=== PATIENT | female | born 1960 | race Caucasian/White ===

== ENCOUNTER → 2022-03-07 12:25 | Outpatient (CLI) | payer OTHER, SELFPAY ==
[2022-03-07 13:51] LABS: Add Manual Diff / Slide Review NO; Basophils Absolute Auto 0 /uL (0-100); Basophils Percent Auto 0.7 % (0-2); Eosinophils Absolute Auto 100 /uL (0-450); Eosinophils Percent Auto 1.3 % (2-4); Hematocrit 39.4 % (36-46); Hemoglobin 13.2 g/dL (12.0-16.0); Lymphocytes Absolute Auto 1400 /uL (1100-4500); Lymphocytes Percent Auto 23.9 % (25-40); Mean Corpuscular HGB Conc 33.5 % (30-36); Mean Corpuscular Volume 80.5 fL (80-100); Monocytes Absolute Auto 400 /uL (0-900); Monocytes Percent Auto 7.4 % (3-14); Neutrophils Absolute Auto 4000 /uL (1500-7000); Neutrophils Percent Auto 66.7 % (50-75); Platelet Count 259 X10^3/uL (150-400); Red Blood Cell Count 4.89 X10^6/uL (4.0-5.2); Red Cell Distribution Width 15.4 % (11.6-14.8)
[2022-03-07 14:06] LABS: Hemoglobin A1C% w Est Avg Glu 5.4 % (4.0-6.0)
[2022-03-07 14:20] LABS: BUN Creatinine Ratio 16.7 (6-22); Blood Urea Nitrogen 15 mg/dL (7-17); Calcium 8.6 mg/dL (8.4-10.2); Carbon Dioxide 27 mmol/L (22-32); Chloride 100 mmol/L (98-107); Estimated Glomerular Filt Rate > 60 mL/min (>60); Glucose 89 mg/dL (80-110); HEMOLYSIS < 15 (0-50); Sodium 138 mmol/L (137-145)
== END ==
PROVIDERS: Family Provider Family Medicine; PCP Internal Medicine; Referring Provider Orthopaedic Surgery Foot and Ankle Surgery; Visit Provider Orthopaedic Surgery Foot and Ankle Surgery
DX: R73.9 Hyperglycemia, unspecified (principal); Z01.812 Encounter for preprocedural laboratory examination
CPT/HCPCS: 36415; 80048; 83036; 85025

== ENCOUNTER → 2022-03-14 12:14 | Outpatient (CLI) | payer OTHER, SELFPAY ==
[2022-03-14 13:14] LABS: COVID19 -Nasal RAPID Negative (Negative)
== END ==
PROVIDERS: Family Provider Family Medicine; PCP Internal Medicine; Referring Provider Orthopaedic Surgery Foot and Ankle Surgery; Visit Provider Orthopaedic Surgery Foot and Ankle Surgery
DX: Z20.822 Contact with and (suspected) exposure to COVID-19 (principal)
CPT/HCPCS: 87635; C9803

== ENCOUNTER → 2022-05-17 15:33 | Outpatient (CLI) | payer OTHER, SELFPAY ==
[2022-05-17 16:51] LABS: COVID19 -Nasal RAPID Negative (Negative)
== END ==
PROVIDERS: Family Provider Family Medicine; PCP Internal Medicine; Referring Provider Orthopaedic Surgery Foot and Ankle Surgery; Visit Provider Orthopaedic Surgery Foot and Ankle Surgery
DX: Z20.822 Contact with and (suspected) exposure to COVID-19 (principal)
CPT/HCPCS: 87635; C9803

== ENCOUNTER 2022-05-19 06:27 | Day surgery (SDC) | payer OTHER, SELFPAY ==
[2022-05-17 15:24] VITALS: BMI 39.8
[2022-05-19] VITALS (14 sets, daily range): BP systolic 134–173; BP diastolic 54–79; PULSE 64–97; RESP 13–20; TEMP 36–36.8; O2SAT 94–998; BMI 39.8; BMI 39.5
--- NOTE | 2022-05-19 06:00 | DI.RAD.S_ITS ---
PROCEDURE: XR KNEE RT 1TO2V INDICATIONS: postop total joint TECHNIQUE: 2 view(s) of the knee acquired. COMPARISON: [facility], CR, XR KNEE 3 VIEWS RIGHT, 11/10/2021, 10:06. FINDINGS: Bones: Patient is status post knee joint arthroplasty. Hardware components are in expected positions. Visualized bony structures are intact. Soft tissues: Overlying postoperative changes are noted. IMPRESSION: Expected immediate postoperative appearance of right TKA. Dictated by: Braxton HERNANDEZ Interpreted: Federica Tillman MD on 05/19/2022 at 16:03 Transcribed by: BEATRIS on 05/19/2022 at 16:03 Approved by: Federica Tillman M.D. on 05/19/2022 at 16:35
[2022-05-19] MEDS: LACTATED RINGERS 1,000 ML 100 ML IV ×3 (07:06→13:46)
[2022-05-19] MEDS: ACETAMINOPHEN 325 MG TABLET 975 MG PO (07:09)
--- NOTE | 2022-05-19 07:27 | PM.PREOP ---
Pre-operative Note COVID-19 COVID-19 status: Negative Interval Note History & Physical reviewed/Exam performed by Physician: Yes Changes to H&P: No
[2022-05-19] MEDS: CEFAZOLIN 2 GM/100 ML PREMIX 100 ML IV ×3 (08:00→23:28)
--- NOTE | 2022-05-19 08:24 | SUR.OPER ---
Supine on padded OR bed. Pillow under head, arms secured on padded armboards <90 degree abduction. Safety belt across torso. Non-operative leg secured with tape over blanket over lower leg. Operative leg secured in DeMayo/Spencer/Nathe positioner. Foam padded brace at thigh of operative leg.
[2022-05-19] MEDS: BUPIVACAINE LIPOSOME 266 MG/20 ML VIAL INJ (08:30)
[2022-05-19] MEDS: TRANEXAMIC ACID 1,000 MG VIAL 1000 MG INJ ×2 (08:30→10:38)
[2022-05-19] MEDS: BUPIVACAINE 0.25% (PF) 60 ML, EPINEPHrine 0.3 MG INJ (08:30)
[2022-05-19] MEDS: ONDANSETRON 4 MG/2 ML INJ IV ×4 (11:56→23:00)
[2022-05-19] MEDS: hydrOXYzine pamoate 25 MG CAPSULE PO (13:43)
[2022-05-19] MEDS: OXYCODONE IR 10 MG TABLET PO (13:43)
--- NOTE | 2022-05-19 15:15 | PT.IIE ---
Current Diagnoses Unilateral primary osteoarthritis, right knee (05/19/22) Surgery Performed Operation Date: 05/19/22 07:45 Actual Procedures p Total Knee Arthroplasty(Right) - Sabine Jurado MD Surgical History (Last Updated 03/10/22 @ 10:23 by Linda Salcedo, RN) History of biopsy of temporal artery History of section History of hysterectomy History of right oophorectomy Hx of arthroscopy of right knee Hx of hand surgery Hx of knee surgery Hx of thyroidectomy (11/14/14) Hx of tonsillectomy S/P appendectomy Medical History (Last Updated 05/17/22 @ 15:26 by Linda Salcedo, RN) Allergies Anesthesia complication Anxiety Cervical spinal stenosis Cleft palate COVID-19 virus infection (03/30/22) Depression Fibromyalgia GERD (gastroesophageal reflux disease) Hearing impaired HTN (hypertension) Hx of multiple concussions Hypothyroid JOHNNIE on CPAP Osteoarthritis Spinal stenosis Vocal cord dysfunction Physical Therapy Inpatient Evaluation/Re-Eval M1 PT/OT-IP Prior Functional Status Start: 05/19/22 15:53 Freq: NEEDED Status: Active Protocol: Document 05/19/22 15:15 AB (Rec: 05/19/22 16:08 AB [email or web address]) Medical Review Prior Functional Status Medical History Reviewed Yes Communication able to make needs known Mobility and Gait pt stated that she is independent with all mobilities and ambulation without AD Prior Functional Level (Other details) pt has chronic back issues Social History Household Members spouse Living Arrangements House Number of Floors (Floors) One Floor Number of Stairs To Enter/Railing? 2 steps without rails to enter Home Environment Standard Height Toilet,Walk in Shower Home Equipment Front Wheel Walker,Straight Cane,Shower Seat without Backrest,Hand Held Shower Additional Social History Comment pt has an adjustable bed M2 PT-IP Current Condition Start: 05/19/22 15:53 Freq: NEEDED Status: Active Protocol: Document 05/19/22 15:15 AB (Rec: 05/19/22 16:08 AB [email or web address]) Physical Therapy Current Condition Current Condition Evaluation Date 05/19/22 Treatment Diagnosis s/p R TKA; difficulty in walking Onset Date 05/19/22 M3 PT-IP Subjective Start: 05/19/22 15:53 Freq: NEEDED Status: Active Protocol: Document 05/19/22 15:15 AB (Rec: 05/19/22 16:08 [email or web address]) Subjective Physical Therapy Visit Type Type Initial Evaluation Visit Start Time 15:15 Visit Stop Time 15:46 Total Visit Minutes 31 Number of DIGITAL INTERN Visits 0 Physical Therapy Visit Comments Patient Comments agreeable to do PT Therapy Pain Assessment Pain When Pain Assessed At Rest Pain Present Pain Present Pain Reported Location right knee Intensity 8 Scale Used Numeric (0 - 10) Pain Behaviors Guarding,Restlessness Pain Management Techniques Apply Cold,Distraction, Elevation,Modification of Treatment,Re-positioning, Timing of Activity with Medications M4 PT-IP Mobility and Gait Start: 05/19/22 15:53 Freq: NEEDED Status: Active Protocol: Document 05/19/22 15:15 AB (Rec: 05/19/22 16:08 [email or web address]) PT-Bed Mobility Assessment Supine to Sit Supine to Sit Standby Assistance Sit to Supine Sit to Supine Standby Assistance PT-Transfer Assessment Sit to and From Stand Sit to and from Stand Minimal Assistance,1 Person Assistance,Use of Upper Extremities Equipment Transfer Assistive Device Gait Belt,Front Wheeled Walker Orthotic/Prosthetic Devices or Brace: No Comments Mobility Comments BP in supine: 152/68 completed supine to sit SBA. able to sit on EOB CGA. pt becoming sleepy and cued to keep eyes open. stated that she is just tired. BP checked : 155/72. completed sit to stand min A and able to take side steps towards HOB using FWW min A. completed sit to supine SBA. positioned pt in bed. call light and table placed within reach. caregiver training set up at 9 am tomorrow. Gait Assessment Comments Gait Comments able to take side steps towards HOB using fWW PT-Balance Assessment Sitting Balance and Reactions Static Sitting Balance Ability Good Dynamic Sitting Balance Ability Fair Standing Balance and Reactions Static Standing Balance Ability Fair Dynamic Standing Balance Ability Fair Device Used FWW M5 PT-IP Objective Assessments Start: 05/19/22 15:53 Freq: NEEDED Status: Active Protocol: Document 05/19/22 15:15 AB (Rec: 05/19/22 16:08 [email or web address]) Orientation Orientation/Cognition Level of Alertness Alert Orientation Name,Place,Situation Language Function Ability No Deficits Noted Safety Awareness Decreased Safety Awareness Memory Description No Deficits Noted Gross Range of Motion Lower Extremity ROM Assessment Right Impaired Impairments R knee flexion ~ 50 deg with pain limiting movement Strength Lower Extremity Strength Assessment Right Impaired Hip 4-/5 Knee 3+/5 Sensation Assessment Sensation Gross Sensation WNL Muscle Tone Muscle Tone WNL Yes M6 PT-IP Treatment Start: 05/19/22 15:53 Freq: NEEDED Status: Active Protocol: Document 05/19/22 15:15 AB (Rec: 05/19/22 16:08 AB [id number]) Physical Therapy Treatment Education Education Provided Precautions,Weight Bearing Status,Post-Op Packet,Safety M7 PT-IP Assessment and Plan Start: 05/19/22 15:53 Freq: NEEDED Status: Active Protocol: Document 05/19/22 15:15 AB (Rec: 05/19/22 16:08 AB [email or web address]) PT Summary Assessment and Plan Potential Rehabilitation Potential Fair Status of Condition at Evaluation Evolving Summary Impairments Pain,ROM,Strength,Balance, Coordination,Sensation,Tone, Cognition,Bed Mobility, Transfers,Gait,Activity Tolerance Assessment Summary pt requiring min A with mobility using FWW. caregiver training set up at 9am tomorrow and will continue to assess progress. pt plans to go home and spouse to assist and has outpt PT set up. Goals Bed Mobility Goal Independent Transfer Goal Independent,Front Wheeled Walker Gait Goal Independent,Front Wheel Walker Gait Distance 200 Other Goals up/down 2 steps COMMERCIAL DIVER/SPC CGA Days to Meet Goals 5 Frequency of Treatment Frequency Of Treatment Twice a Day Treatment Plan Physical Therapy Treatment Plan Bed Mobility Training,Transfer Training,Gait Training, Therapeutic Exercise,Balance Retraining,Post Op Education, Discharge Planning,Hot or Cold Pack,Neuromuscular Re-ed, Coordination Retraining,Manual Therapy Weight Bearing Status Weight Bearing Status Weight Bear as Tolerated Allowed Weight Bearing Amount (enter % RLE WBAT or #) (%) Recommendations To Nursing Amount of Assist Needed 1 Person Assist Discharge Recommendations PT Discharge Recommendations Home with Assistance, Outpatient PT Transportation Needs at Discharge Private Vehicle
--- NOTE | 2022-05-19 15:41 | P.OP_ITS ---
Operative Date/Time/Diagnoses Date of procedure: 05/19/22 Time of procedure: 08:00 Pre-op diagnosis: Right knee arthritis M17.11 Obesity BMI 39 Post-op diagnosis: same Procedure & Clinicians Procedure: Total knee arthroplasty, right CPT code 32383 Same procedure as scheduled: Yes Indications: Patient is a 61-year-old female with end-stage arthritis. It is associated with pain and morning stiffness. She has failed all conservative treatments. She has been indicated for right total knee arthroplasty. The risks and benefits of the procedure have been discussed with the patient and given the opportunity to ask questions. The risks of surgery include but are not limited to infection, persistence of pain, damage to nerves and blood vessels, hardware complications, DVT, PE, coardiopulmonary complications and . The patient expressed a thorough understanding of the risks and benefits of surgery and has elected to proceed. Consent was signed. During the operation, the services of a physician surgical brace maker were medically indicated and necessary to provide the exposure of the operative site for the surgical procedure and to maintain the limb in a proper position to carry out the operation safely and efficiently. Without a qualified assistant signal maintainer being present this would extended the operative procedure and made the procedure technically more difficult to perform. Surgeon: Sabine Jurado Manufacturers Representative: Juliette Jiménez Anesthesia Type: General Operative Notes Findings: End-stage knee arthritis Closure Type: primary Prosthetic devices, grafts, tissues, transplants, or devices: [place] [employer] Journey the CS femur size 4 right Oxinium Tibia tray right size 2 journey nonporous Poly right size 1-2---11mm Patella 32 mm x 7.5mm round Estimated Blood Loss (mL): 100 Tourniquet time (min): 132 Procedure in detail: Patient was seen in the preoperative area where the patient and site of surgery were identified in the operative knee was marked informed consent confirmed. This was the right knee. Patient received the appropriate preoperative antibiotics this was 2 g of Ancef. And other preoperative medications and was taken to the operating room placed on operating table in the supine position. S beny anesthetic were administered. The operative extremity was then prepped and draped in the standard sterile fashion with a nonsterile tourniquet high on the thigh. Patient was placed on the green foam bolsters. A lateral post was placed at the level of the proximal thigh /trochanter area as a lateral post. Formal time-out procedure was performed confirming the patient's side and site of surgery and administration of appropriate preoperative antibiotics and implants were in the room accounted for. All were in agreement. Patient received a preoperative dose of tranexamic acid and then a 2nd dose at tourniquet release Patient was prepped and draped in the standard sterile fashion and the foot was placed into the [facility] leg silver. This was taken into high flexion and the incision was marked out over the anterior knee to the level of the medial tubercle tubercle. She had an old very medial incision from above surgery 40 years ago. The Esmarch was then used for exsanguination and the tourniquet was inflated to 250 mmHg. Was made through the skin and subcutaneous tissue in high flexion this was then brought down into 30? of flexion for the medial parapatellar arthrotomy. A marker pen was used to minna the arthrotomy site for later repair. Joint fluid was evacuated. The anterior osteophytes and soft tissues were removed. Routine medial release was initially made along the medial proximal tibia with Bovie. The patella was on quite a bit of tension on attempted eversion so the quad incision was lengthened to relax it and then the patella was 1st cut using the s aw sized and prepped and then subluxed throughout the case and protected. The leg was then taken into extension and the patella was everted and the patella was cut to accommodate the patellar button. This was sized to a 32 mm button for a 7.5 mm thickness to recreate the original dimensions of the patella. Poly was removed and the protector replaced and the patella was subluxed and the knee was taken back up into flexion and attention was returned to the femur. Then the rotational landmarks of Whitesides line and the trans epicondylar axis were marked on the femur with electrocautery. Then the intramedullary guide for the femur was created. The distal femoral cut was made in 6? of valgus using the intramedullary guide with the cut setting on 2+ as the patient did have a few degree preoperative flexion contracture. The ACL and PCL released. The proximal tibia was then cut using the intramedullary guide, taking 7 mm off the less involved side this was the medial plateau. The Perry wing was used to check the slope through the guide. Second pass was made through the tibial cut guide with the saw after the cut tibia was removed plane down about 1 more mm and further smooth then the resection surface. This was still quite tight in extension so the block was dropped 2 more mm taken off the tibia. In extension remainders of the medial and lateral menisci were removed. The extension flexion gaps were then checked using both the flexion extension blocks. And was selected for a 11 mm poly. femur was then sized and the rotation set. This measured a size 4. Cut block was then placed and the anterior, posterior and chamfer cuts were then made. The posterior osteophytes and soft tissues were then removed. Then in extension the posterior capsule was injected with a mixture of 40 mL of 0.25% Marcaine and 20 mL of Exparel care to avoid excessive injection posterior laterally. The remainder of this was saved for the capsule and subcutaneous tissue and placed during cement curing. Attention was then returned to the tibia and this was prepared with the rotation set by the extramedullary guide. Lined up with the tibial crest and the 2nd toe. The tibial trial was then pinned in place and the trial femoral components were placed tibia was selected for size 2. Then the intercondylar notch was cut through the femoral trial to create the box this was done with the distal than the proximal drill and then the box cut distally and then proximally. Next the insert was placed and the trial poly placed. This was stable in flexion and extension and there was a 0-120 degree range of motion. Further flexion limited by body habitus. The tibia was then finished with the drill and flange cuts and then this was removed. All trials were removed. The wound and bone was irrigated with pulsatile lavage. This was then dried with a sponge. The components were verified and opened and the cement was mixed. Cement was applied to the components and then to the bone then the tibia was cemented in place 1st followed by the femur then the patella. Excess cement was removed. With care looking around the back of the knee. Remainder of the injection was injected around the capsule. trial poly was placed back in the leg was placed into extension for the patellar cementing. After this was cured approximately 15 minutes later and the dilute Betadine solution was placed for at least 3 minutes in the wound this was then irrigated out and the final poly was placed. This was a 11 mm poly. This was stable in extension and high flexion and mid flexion. The tourniquet was released hemostasis was achieved. Final g of tranexamic acid was given IV at the time of tourniquet release. The capsule was closed with 1. Ethibond suture. Subcutaneous layer was closed with 3-0 Vicryl suture. Skin was closed with a running V lock suture Stratafix Monocryl type suture and Dermabond. An Aquacel was placed. An Crescencio wrap was applied. Anesthetic was terminated the patient was woken from anesthesia and taken to recovery room in good condition. There no immediate complications from this procedure. The patient will be maintained on a standard total knee replace ment protocol with weight-bearing as tolerated. Complications: none Post-operative Condition: stable Disposition: PACU Plan for aftercare: Weightbear as tolerated. Discharge when safe. Aspirin 81 mg b.i.d. for DVT prophylaxis x6 weeks. Follow-up in 2 weeks orthopedic Clinic for wound evaluation. Follow-up in 6 weeks for repeat x-rays
--- NOTE | 2022-05-19 17:36 | PC.NURSE ---
Pt arrived to Room 209 at 1255. She is A&Ox3, c/o pain to RLE 8-9/10 but lethargic and reports tingling to R foot. SBP slightly elevated. Pt is given prn zofran for c/o nausea. Crescencio wrap c/d/i. ice packs applied. She is assisted to edge of the bed to stand to use bsc, but light headed assisted to lie back down. SBP 160's. PT is able to work with patient and stand once more this evening. She lies back down and requests to rest. She declines scheduled evening meds due to nausea. Continuous pulse ox. Continuous monitoring. RT notified of CPAP machine. call light in reach, scds on, IVF at 100 ml/hr, and bed alarm on.
[2022-05-19] MEDS: MORPHINE ER 15 MG TABLET PO (23:28)
[2022-05-20 00:15] VITALS: BP 177/67; PULSE 65; RESP 14; TEMP 36.6; O2SAT 96
[2022-05-20] MEDS: HYDROMORPHONE 0.5 MG INJ 0.2 MG IV (02:25)
[2022-05-20 05:30] VITALS: BP 155/54; PULSE 76; RESP 14; TEMP 37.4; O2SAT 98
[2022-05-20] MEDS: ONDANSETRON 4 MG/2 ML INJ IV (05:37)
[2022-05-20] MEDS: ACETAMINOPHEN 325 MG TABLET 650 MG PO (06:35)
[2022-05-20] MEDS: MORPHINE ER 15 MG TABLET PO (06:36)
[2022-05-20] MEDS: LACTATED RINGERS 1,000 ML 100 ML IV (06:37)
[2022-05-20 06:45] LABS: Hematocrit 35.4 % (36-46); Hemoglobin 11.5 g/dL (12.0-16.0)
[2022-05-20] MEDS: DOCUSATE 100 MG CAPSULE PO (08:51)
[2022-05-20] MEDS: ASPIRIN EC 81 MG TABLET PO (08:51)
--- NOTE | 2022-05-20 09:00 | PT.IPTN ---
Current Diagnoses Unilateral primary osteoarthritis, right knee (05/19/22) Surgery Performed Operation Date: 05/19/22 07:45 Actual Procedures p Total Knee Arthroplasty(Right) - Sabine Jruado MD Physical Therapy Treatment Note M2 PT-IP Current Condition Start: 05/19/22 15:53 Freq: NEEDED Status: Active Protocol: Document 05/19/22 15:15 AB (Rec: 05/19/22 16:08 AB [email or web address]) Physical Therapy Current Condition Current Condition Evaluation Date 05/19/22 Treatment Diagnosis s/p R TKA; difficulty in walking Onset Date 05/19/22 M3 PT-IP Subjective Start: 05/19/22 15:53 Freq: NEEDED Status: Active Protocol: Document 05/20/22 09:00 AB (Rec: 05/20/22 12:29 AB [email or web address]) Subjective Physical Therapy Visit Type Type Treatment Note Visit Start Time 09:00 Visit Stop Time 11:30 Total Visit Minutes 71 Notes pt seen for split visits: 900 am to 951 am and 1110 to 1130 am Number of CITIZENSHIP TEACHER Visits 0 Physical Therapy Visit Comments Patient Comments agreeable to do PT Therapy Pain Assessment Pain When Pain Assessed At Rest Pain Present Pain Present Pain Reported Location right knee Intensity 7 Scale Used Numeric (0 - 10) Pain Behaviors Facial Grimacing,Guarding, Restlessness Pain Management Techniques Apply Cold,Distraction, Modification of Treatment,Re- positioning,Timing of Activity with Medications M4 PT-IP Mobility and Gait Start: 05/19/22 15:53 Freq: NEEDED Status: Active Protocol: Document 05/20/22 09:00 AB (Rec: 05/20/22 12:29 AB [email or web address]) PT-Bed Mobility Assessment Supine to Sit Supine to Sit Moderate Assistance,1 Person Assistance,Head of Bed Elevated Sit to Supine Sit to Supine Standby Assistance PT-Transfer Assessment Sit to and From Stand Sit to and from Stand Contact Guard Assistance, Minimal Assistance,1 Person Assistance,Use of Upper Extremities Equipment Transfer Assistive Device Gait Belt,Front Wheeled Walker Orthotic/Prosthetic Devices or Brace: No Transfers Transfer Destination Chair Transfer Ability Level of Assist Contact Guard Assistance,1 Person Assistance,Use of Upper Extremities Comments Mobility Comments spouse in room with pt. caregiver training conducted completed supine to sit mod A with spouse assisting. able to sit on EOB SBA. completed sit to stand CGA to and ambulated in room ~ 10 ft CGA using FWW . educated spouse on how to use safety belt and how to assist pt. spouse was able to put safety belt on pt and assisted pt with sit to stand. spouse was able assist pt with ambulation using fWW. educated pt and spouse on how to do stairs using SPC + CHILLER HAND. pt has 2 steps without rails to enter the house. pt ambulated towards the platform step using FWW CGA. attempted up/down platform step but unable to complete despite PT and spouse assisting. pt ambulated back to the chair using FWW CGA. educated pt on stair again. completed up/down step with PT assisting max A and cues. pt requested to go back to bed. supine to sit SBA. positioned pt in bed. call light and table placed within reach. pt stated that she just needs to rest for now. checked back on pt after ~ 1 hour. pt sitting up on EOB and spouse in room. pt wanting to use the toilet. caregiver training conducted again. spouse able to put safety belt on pt and assisted pt to the toilet using FWW. pt ambulated towards the platform step using fWW CGA. completed up/down step using SPC+CHILLER HAND and completed x 2 sets wtih spouse assisting. pt ambulated back to room and to the chair. spouse stating now that they have another step to get into the house and not just 2 steps. stated that they have 2 steps to get to the porch and then walk towards the front door and another step to enter. educated pt and spouse on how to go up/ down 1 step using FWW. pt completed up/down platform step using FWW with spouse assisting min A. pt sat back on the chair. positioned on the chair. call light and table placed within reach. Gait Assessment Gait Gait Assistance Required: Contact Guard Assist Distance (Feet) 30 Able to Maintain Weight Bearing Status Yes During Gait Assistive Devices Assistive Device Gait Belt,Front Wheeled Walker Orthotic/Prosthetic Devices or Brace: No Gait Deviations General Gait Pattern Antalgic,Decreased Stride Length,Decreased Feet Clearance Factors Limiting Gait Function Factors Limiting Gait Function Decreased Activity Tolerance, Decreased Sensation,Decreased Strength,Difficulty Following Directions,Limited Range of Motion,Pain,Poor Balance,Poor Safety Awareness Stair Climbing Assessment Evaluation Level of Assist On Stairs Minimal Assistance,Moderate Assistance,Maximal Assistance, 1 Person Assistance Devices Stair Climbing Assistive Devices Straight Cane,Front Wheel Walker Technique/Endurance Stair Climbing Direction Ascend and Descend Stair Climbing Technique Step to Step Number of Steps Climbed 1 Stair Climbing Set # Repetitions (reps) 4 Comments Stair Climbing Comments pls refer to mobility section for details M5 PT-IP Objective Assessments Start: 05/19/22 15:53 Freq: NEEDED Status: Active Protocol: Document 05/19/22 15:15 AB (Rec: 05/19/22 16:08 AB [email or web address]) Orientation Orientation/Cognition Level of Alertness Alert Orientation Name,Place,Situation Language Function Ability No Deficits Noted Safety Awareness Decreased Safety Awareness Memory Description No Deficits Noted Gross Range of Motion Lower Extremity ROM Assessment Right Impaired Impairments R knee flexion ~ 50 deg with pain limiting movement Strength Lower Extremity Strength Assessment Right Impaired Hip 4-/5 Knee 3+/5 Sensation Assessment Sensation Gross Sensation WNL Muscle Tone Muscle Tone WNL Yes M6 PT-IP Treatment Start: 05/19/22 15:53 Freq: NEEDED Status: Active Protocol: Document 05/20/22 09:00 AB (Rec: 05/20/22 12:29 AB [email or web address]) Physical Therapy Treatment Education Education Provided Safety M7 PT-IP Assessment and Plan Start: 05/19/22 15:53 Freq: NEEDED Status: Active Protocol: Document 05/20/22 09:00 AB (Rec: 05/20/22 12:29 AB [email or web address]) PT Summary Assessment and Plan Potential Rehabilitation Potential Fair Summary Impairments Pain,ROM,Strength,Balance, Coordination,Sensation,Tone, Cognition,Bed Mobility, Transfers,Gait,Activity Tolerance Progress Towards Goals Slow Progress due to Pain,Slow Progress due to Activity Tolerance Assessment Summary caregiver training conducted and spouse was able to assist pt with mobility. pt plans to go home today. Goals Bed Mobility Goal Independent Transfer Goal Independent,Front Wheeled Walker Gait Goal Independent,Front Wheel Walker Gait Distance 200 Other Goals up/down 2 steps CHILLER HAND/SPC CGA Days to Meet Goals 5 Frequency of Treatment Frequency Of Treatment Twice a Day Treatment Plan Physical Therapy Treatment Plan Bed Mobility Training,Transfer Training,Gait Training, Therapeutic Exercise,Balance Retraining,Post Op Education, Discharge Planning,Hot or Cold Pack,Neuromuscular Re-ed, Coordination Retraining,Manual Therapy Weight Bearing Status Weight Bearing Status Weight Bear as Tolerated Allowed Weight Bearing Amount (enter % RLE WBAT or #) (%) Recommendations To Nursing Amount of Assist Needed 1 Person Assist Discharge Recommendations PT Discharge Recommendations Home with Assistance, Outpatient PT Transportation Needs at Discharge Private Vehicle
--- NOTE | 2022-05-20 09:17 | CM.DANOTE ---
DCP Assessment: Payor confirmed: Bear PCP confirmed: Tiera Guerrero MD Pt is a 61 y.o. F who presented to the hospital for a scheduled right TKA surgery with Dr. Jurado. Pt brought up to the floor for post op management and evaluation. DCP met with pt this morning to discuss discharge needs. Pt sitting up in bed. Spouse at bedside. DCP introduced self and role. Pt is independent at baseline. Lives with her spouse in a rambler home in [place]. Pt denies DME use. Pt has outpatient PT set up for next week. Pt denies resources at this time. Whiteboard updated and instructed to call. Pt thankful for discussion. P: Pt to work with PT this morning. Once cleared, anticipate discharge home via spouse POV. Galilea Dietz RN/DAMARI Discharge Planning/Care Management CM Discharge Assessment Start: 05/20/22 09:16 Freq: Status: Active Protocol: Document 05/20/22 09:17 ARCHIE (Rec: 05/20/22 09:17 [id number]) Discharge Planning Assessment Assigned Management Consultant Galilea Dietz RN/DAMARI Advance Directives? Yes Advance Directives on File No History Provided By Patient,Medical Record Prior Living Arrangements House Household Members spouse Type of transporation used prior to Drives own vehicle admit Independent with ADL's Yes Is patient alert and oriented? Yes Patient/Family Preference OP PT Therapy Discharge Plan Home Referrals Initiated None needed Additional Comment At this time. Whiteboard Updated in Patient Room with Yes name and ext. # of Management Consultant Comment Instructed to call Review Status In Process Please Provide Date Initial DC 05/20/22 Assessment Was Performed Next Review Type Continued Stay Review Pre-Anesthesia Assessment Start: 03/10/22 09:29 Freq: Status: Complete Protocol: Document 05/17/22 15:24 CAB (Rec: 03/10/22 10:40 CAB [id number]) Pre-Anesthesia Assessment PAC Comment Original phone assess completed 03/10/22. Surgery rescheduled multiple times. Patient Information Reviewed Via Phone Assessment Assessment Completed With Patient Diagnostic Results BMP/CMP,CBC Comment Labs @ [facility] 03/07/22, COVID screen @ [facility] 05/17/22 Primary Care Provider Tiera Guerrero Medical Clearance Received Yes Seen Specialist in Last 12 Months Yes Specialist Seen Assistant Offset Press Operator,Orthopedist, Other Comment PCP pre-op 02/18/22 w/clearance form 01/26/22 scanned Primary Language Nepalese Painter Chassis Required No Height 160.02 cm Weight 102.058 kg Body Mass Index (BMI) 39.8 Hearing Ability Hard of Hearing,Use of Hearing Aid Visual Assist Glasses Dentition Type Teeth, Natural Present,Teeth, Missing Barriers to Learning Auditory Hx Anesthesia Reactions Yes: Spinal cord leak s/p spinal/ required a blood patch, prefers GA Additional comment Vocal cord dysfunction, they don't close all the way s/p thyroidectomy Hx Family Anesthesia Reaction No Hx Malignant Hyperthermia No Hx Blood Transfusions No Anesthesia Review Requested No alcohol intake former Alcohol Intake Frequency Other: Quit 1980 Smoking Status Former smoker how long ago did patient quit smoking Quit 1980 Substance Use Type does not use Pain Present Pain Reported Musculoskeletal Symptoms Abnormal Gait,Back Pain, Difficulty Walking,Joint Pain, Neck Pain History of Falling (Recent or History of Yes ) Patient is completely paralyzed or No completely immobile Mental Status Oriented to own ability Is patient on oxygen? No Does patient have WARD/SOB No: Chronic sinus drainage, cough Hx Sleep Apnea Yes CPAP/BIPAP use prescribed and used routinely Will Bring CPAP/BIPAP DOS Yes Currently Taking a Beta Kylie No Hx Chest Pain No Hx SOB No Hx Syncope or Dizziness No Anti-Coagulant Therapy No Has a Business Objects Consultant No Cardiac Testing No Hx Pacemaker/ICD No Pacemaker Rep Required? No Diet Type At Home Regular Dysphagia No Gastrointestinal Symptoms Constipation,Reflux Bladder Pattern Incontinent, Stress Urinary Catheter Present No Hx Urinary Self Catheterization No Diabetes No Patient No Lactating No Hx Drug Resistant Organism No Presence of External or Internal Medical Yes: CPAP Devices Have you had any close contact with No someone diagnosed with COVID-19? Received a COVID vaccine? Yes Received all doses? No Marital Status Lives With spouse Current Living Arrangements House Number of Floors (Floors) One Floor Support System Spouse Does the Patient Have Assistance After Yes Surgery Patient Discharge Plan Description Return Home Comment Pt advised overnight length of stay per surgeon Feels Safe in Current Environment Yes Been Physically Hurt or Threatened By a No Person in Current Environment Do you have thoughts of harming yourself None or others? Are you currently considering suicide? No Do you have a plan to hurt yourself or No Plan others? Do You Have Any Spiritual Beliefs That No May Affect Your HC Choices? Do You Have Any Cultural Practices That No May Affect Your HC Choices? Who Can We Speak to About Patient's Care Family, friends Identifying Code for Release of Patient Declines to issue Information Health Care Proxy/Next of Kin Hubert ()-[facility] Health Care Proxy Emergency Contact Name Aquiles (son) Serafin (son) Emergency Contact Phone Number Aquiles: [phone] Serafin : [phone] Advance Directives? No Power of Medical And Scientific Illustrator No PAC Instructions Bring CPAP/BIPAP,Do not shave/ clip surgical site,Durable medical equipment,Medications to take/avoid,Nasal antibiotic ,No ETOH/petroleum product on skin DOS,NPO,Post-op transportation,Pre-surgical wash,Sensory aids,Sturdy shoes /comfortable clothes,Do not bring valuables and remove jewelry
--- NOTE | 2022-05-20 09:20 | PM.DS.1 ---
History of Present Illness History of Present Illness Date Patient Seen: 05/20/22 Time Patient Seen: 09:20 Chief complaint: Right TKA *OPB* Narrative: Patient is complaining of gjvf-se-plxltlay right knee pain this morning. Her biggest concern is she is having postoperative nausea and vomiting. Her is at bedside and notes he has a stomach bug and is concerned that he gave it to her. He is had diarrhea and vomiting in last 24 hours. The patient is also chronic pain management patient, she notes her pain is currently well controlled. She is unable to take NSAIDs. She also notes her right foot feels asleep and there has been mild improvement since yesterday. Overall she is feeling well and is hoping to be discharged home later today. Discharge Providers Provider Discharge Date: 05/20/22 Primary care physician: Tiera Guerrero MD Consults: 05/19/22 13:00 Consult to Discharge Planning Routine Comment: Consult to Physical Therapy Evaluate & Treat Comment: Physician Instructions: postop TKA protocol Discharge provider: Juliette Jiménez PA-C Summary Hospital Course Discharge Diagnosis: Right knee arthritis M17.11 Obesity BMI 39 Hospital Course: Operative Date/Time/Diagnoses Date of procedure: 05/19/22 Time of procedure: 08:00 Procedure & Clinicians Procedure: Total knee arthroplasty, right CPT code 82391 Same procedure as scheduled: Yes Indications: Patient is a 61-year-old female with end-stage arthritis.? It is associated with pain and morning stiffness.? She has failed all conservative treatments.? She has been indicated for right total knee arthroplasty.? The risks and benefits of the procedure have been discussed with the patient and given the opportunity to ask questions.? The risks of surgery include but are not limited to infection, persistence of pain, damage to nerves and blood vessels, hardware complications, DVT, PE, coardiopulmonary complications and .? The patient expressed a thorough understanding of the risks and benefits of surgery and has elected to proceed.? Consent was signed. During the operation, the services of a physician surgical training specialist were medically indicated and necessary to provide the exposure of the operative site for the surgical procedure and to maintain the limb in a proper position to carry out the operation safely and efficiently.? Without a qualified assistant warehouse manager being present this would extended the operative procedure and made the procedure technically more difficult to perform. Surgeon: Sabine Jurado Metal Window Frame Maker: Juliette Jiménez Anesthesia Type: General Operative Notes Findings: End-stage knee arthritis Closure Type: primary Prosthetic devices, grafts, tissues, transplants, or devices: [place] [employer] Journey the CS femur size 4 right Oxinium Tibia tray right size 2 journey nonporous Poly right size 1-2---11mm Patella 32 mm x 7.5mm round Estimated Blood Loss (mL): 100 Tourniquet time (min): 132 ADDENDUMAnesthesia was general and spinal and local Status at Discharge Cognitive/behavioral status at discharge: at baseline, oriented Functional status at discharge: uses cane/walker Overall status at discharge: patient is progressing back to baseline Exam Vital Signs (past 8 hours): - 05/20/22 05:30 Temperature 99.3 F Pulse Rate 76 Respiratory Rate 14 Blood Pressure 155/54 H Pulse Oximetry 98 Oxygen Flow Rate 0 Oxygen Delivery Method Room Air,CPAP Oxygen Flow Rate 0 Narrative Exam Narrative: Pleasant 61-year-old female, resting comfortably in bed, no acute distress. Her is at bedside. Her right knee dressing is clean, dry, intact. Bilateral lower extremity: Motor functions are grossly intact, sensation is grossly intact to light touch, calves are soft and nontender to palpation. Pulse is 2 +in DP, foot is warm and dry. Objective Labs Result Diagrams: 05/20/22 05:49 Labs: Laboratory Results - last 24 hr 05/20/22 05:49 Hgb 11.5 L Hct 35.4 L PFSH Medical History Allergies Anesthesia complication Anxiety Cervical spinal stenosis Cleft palate COVID-19 virus infection (03/30/22) Depression Fibromyalgia GERD (gastroesophageal reflux disease) Hearing impaired HTN (hypertension) Hx of multiple concussions Hypothyroid JOHNNIE on CPAP Osteoarthritis Spinal stenosis Vocal cord dysfunction Surgical History History of biopsy of temporal artery History of section History of hysterectomy History of right oophorectomy Hx of arthroscopy of right knee Hx of hand surgery Hx of knee surgery Hx of thyroidectomy (11/14/14) Hx of tonsillectomy S/P appendectomy Social History household members: spouse Smoking Status: Former smoker alcohol intake: former Discharge Assessment & Plan Assessment and Plan Assessment: -stable status post right total knee arthroplasty -obesity, BMI 39 -chronic pain management patient -postoperative nausea and vomiting Plan of Treatment: -mobilize with PT. Weightbearing as tolerated with front wheel walker -continue with multimodal pain management -aspirin 81 mg twice daily for DVT prophylaxis x6 weeks -postoperative nausea and vomiting: Add scopolamine patch, patient also notes she has Meniere's disease -DC home once cleared by PT Discharge Plan Discharge Plan Patient Disposition: Home Discharge orders & Medications Discharge Orders: Discharge (Order); Ordered 05/20/22 Ordered By: Juliette Jiménez Prescriptions: New oxycodone 5 mg tablet 5 mg PO Q4H PRN (Reason: pain) Qty: 40 0RF Rx Instructions: postop exempt aspirin 81 mg tablet,delayed release (DR/EC) 81 mg PO BID Qty: 84 0RF ondansetron 4 mg tablet,disintegrating 4 mg PO Q8H PRN (Reason: nausea and vomiting) Qty: 7 1RF scopolamine base 1 mg over 3 days patch 3 day 1 patch transdermal Q72H PRN (Reason: nausea and vomiting) Qty: 4 0RF Continued fluoxetine [Prozac] 40 MG capsule 40 mg PO QPM Qty: 0 albuterol sulfate 2.5 MG/3 ML solution for nebulization 3 ml INH PRN PRN (Reason: Respiratory infection, wheezing) Qty: 0 omeprazole 40 mg Capsule,Delayed Release(Dr/Ec) 40 mg PO QPM Qty: 0 levothyroxine 137 mcg Tablet 137 mcg PO DAILY tizanidine 4 mg Tablet 4 mg PO BID PRN (Reason: Muscle Pain) hydroxychloroquine 200 mg Tablet 400 mg PO QPM morphine 15 mg Tablet 15 mg PO TID bupropion HCl 150 mg Tablet Extended Release 24 Hr 150 mg PO QPM cetirizine 10 mg Tablet 10 mg PO DAILY Follow up/Referrals: Sabine Jurado MD [Physician] - As previously scheduled (10-14 days for postoperative visit) Tiera Guerrero MD [Primary Care Provider] - Diet/Activity/Treatments Diet: Diet as Tolerated Other treatments: Dressing/Wound care: -Remove the Crescencio wrap 48 hours after surgery. -Keep Aquacell dressing in place until postoperative follow-up office visit. -you may see some drainage on the bandage, this is ok. If it is leaking or saturated, then the dressing can be changed to clean gauze or a clean surgical dressing from a pharmacy or reinforced with additional gauze and paper tape or dressings over the top. Otherwise, just keep dressing in place until follow up. -Okay to shower. Keep wound out of direct water stream. No soaking or submerging until all the scabs fall off (approximately 6 weeks). -Please call the office if dressing becomes significantly wet, soiled, or saturated. Activities: -Weight-bearing as tolerated. Use front wheeled walker, and progress to cane when safe. -Continue with home exercises as directed by your physical therapist. -Elevate ?toes above the nose if you have significant swelling in your lower leg. (A wedge pillow is easiest.) -Ice your incision as needed for pain/inflammation/swelling. Protect your skin with a folded pillowcase. Follow-up: -Follow-up with your surgeon or PA in the office in 10-14 days after surgery. -Follow-up with your surgeon 6 weeks postoperatively. Call the office if you have chest pain, shortness of breath, significant swelling that will not resolve with elevating, fever over 101?, significantly worsening pain. [facility]: [phone] You have been discharged with medications. These have already been sent to your pharmacy. Pain include pain medications: Oxycodone take 5 mg orally every 4 hours as needed for pain. If your pain is more severe you may take up to 2 or a maximum 3 pills (15 mg) every 4 hours for pain. Take the smallest dose necessary. Narcotic medication can make you feel constipated. You can get aqyv-wte-tumdqum stool softener such as docusate sodium-Colace at a pharmacy to help with this. You also have prescriptions for ibuprofen 800 mg take this 3 times a day for least the 1st 10 days after surgery to help with pain control. And acetaminophen (Tylenol) take 500-1000 mg 3 times a day for pain control. You also have a prescription for Zofran (ondansetron) this is a strong anti nausea medication that can be taken up to every 8 hours as needed for nausea Additionally will take a baby aspirin 81 mg twice a day (morning and night) to help prevent blood clots -you may resume your baseline long-acting pain medication from her pain management physicians. Skin/Wound/Dressing Care Report to your healthcare provider any signs of infection, such as:: chills, fever, night sweats, increased pain, unusual drainage and unusual redness Visit Report/Discharge Packet Instructions: DI for Knee Replacement Stand Alone Forms: Surgery Discharge Discharge Data Primary Care Provider: Tiera Guerrero Attending Provider: Sabine Jurado VTE Deep Vein Thrombosis/Pulmonary Embolism Present on Admission: No
[2022-05-20] MEDS: HYDROMORPHONE 2 MG TABLET PO ×2 (09:24→12:43)
[2022-05-20] MEDS: SCOPOLAMINE 1 PATCH TOP (09:28)
[2022-05-20] MEDS: ONDANSETRON 4 MG ODT PO ×2 (09:29→12:43)
--- NOTE | 2022-05-20 11:44 | PC.NURSE ---
Assess- Patient is alert and oriented x4, she was given zofran po, and a scopalamine patch behind to her left ear. She states that her nausea is better. Patient has an aquacel to her r.knee with tiera wrap that is cdi. CMS wnl, foot a bit numb from spinal to leg. She has passed pt and will be discharged home. Dilaudid po given and helpful for discomfort
== END 2022-05-20 13:03 | disposition home or self-care (01) ==
LOC: OR 06:29 → AC 06:32
PROVIDERS: Family Provider Family Medicine; PCP Internal Medicine; Referring Provider Orthopaedic Surgery Foot and Ankle Surgery; Visit Provider Orthopaedic Surgery Foot and Ankle Surgery
PROC: 0SRC0JZ Replacement of Right Knee Joint with Synthetic Substitute, Open Approach (ICD-10-PCS; CPT 27447; principal; 2022-05-19 07:45)
DX: M17.11 Unilateral primary osteoarthritis, right knee (principal); E66.9 Obesity, unspecified; Z68.39 Body mass index [BMI] 39.0-39.9, adult
CPT/HCPCS: 27447; 36415; 73560; 85014; 85018; 97162; 97530; C1776; C1713; C9290; J0171; J0360; J0690; J1100; J1170; J2250; J2405; J2704; J3010

== ENCOUNTER → 2023-02-27 15:09 | Outpatient (CLI) | payer OTHER, SELFPAY ==
[2022-05-19 13:00] VITALS: BMI 39.5
--- NOTE | 2023-02-27 | DI.MG.S_ITS ---
BILATERAL DIGITAL SCREENING MAMMOGRAM 3D/2D WITH CAD: 02/27/2023 CLINICAL: Routine screening. Comparison is made to exams dated: 04/12/2019 mammogram, 03/09/2015 mammogram, and 06/06/2012 mammogram - [facility]. Both breasts are heterogeneously dense, which may obscure small masses (category c / 51-75% glandular tissue). Current study was also evaluated with a Computer Aided Detection (CAD) system. There is an asymmetry in the right breast anterior depth central to the nipple seen on the craniocaudal view only. No other significant masses, calcifications, or other findings are seen in either breast. IMPRESSION: INCOMPLETE: NEEDS ADDITIONAL IMAGING EVALUATION The asymmetry in the right breast is indeterminate. Additional views with possible ultrasound are recommended. Based on the Tyrer Cuzick model (a risk assessment model) the patient's lifetime risk is 8.6% and her 10 year risk is 4.0%. According to the ACR, ACS, and NCCN guidelines, an annual breast MRI exam along with mammogram is recommended if the patient's lifetime risk is 20% or greater. This exam was interpreted at Station ID: [id number]. NOTE: For mammograms, a report in lay terms will be sent to the patient. Approximately 15% of breast malignancies will not be visualized mammographically. In the management of a palpable breast mass, a negative mammogram must not discourage biopsy of a clinically suspicious lesion. Electronically Signed By: Brad Ramirez M.D. lc/:03/01/2023 13:44:18 letter sent: Additional Imaging Needed ACR BI-RADS Category 0: Incomplete 3340F
== END ==
PROVIDERS: Family Provider Internal Medicine; PCP Internal Medicine; Referring Provider Internal Medicine; Visit Provider Internal Medicine
DX: Z12.31 Encounter for screening mammogram for malignant neoplasm of breast (principal)
CPT/HCPCS: 77063; 77067

== ENCOUNTER → 2023-03-20 10:35 | Outpatient (CLI) | payer OTHER, SELFPAY ==
[2022-05-19 13:00] VITALS: BMI 39.5
--- NOTE | 2023-03-20 | DI.US.S_ITS ---
LIMITED ULTRASOUND OF RIGHT BREAST: 03/20/2023 CLINICAL: Patient returns today to evaluate a focal asymmetry in the right breast. Comparison is made to exams dated: 03/20/2023 mammogram, 02/27/2023 mammogram - [facility], 04/12/2019 mammogram, 03/09/2015 mammogram, 06/06/2012 mammogram, and 04/08/2010 mammogram - [facility]. Real-time ultrasound of the right breast retroareolar was performed. Shin scale images of the real-time examination were reviewed. No significant abnormalities were seen sonographically in the right breast. IMPRESSION: NEGATIVE There is no sonographic evidence of malignancy. There is no abnormality seen in the right breast to correspond with the mammography finding in the sub-areolar depth which likely represents normal fibroglandular tissue. Return to annual mammogram screening schedule is recommended. This exam was interpreted at Station ID: [id number]. Electronically Signed By: Brad Ramirez M.D. lc/:03/20/2023 11:36:44 letter sent: Normal Exam Ultrasound BI-RADS: 1 Negative
--- NOTE | 2023-03-20 | DI.MG.S_ITS ---
UNILATERAL RIGHT DIGITAL DIAGNOSTIC MAMMOGRAM 3D/2D WITH ADDITIONAL VIEWS: 03/20/2023 CLINICAL: Additional evaluation requested from prior study. Comparison is made to exams dated: 02/27/2023 mammogram - [facility], 04/12/2019 mammogram, and 03/09/2015 mammogram - [facility]. The right breast is heterogeneously dense, which may obscure small masses (category c / 51-75% glandular tissue). There is an asymmetry in the right breast anterior depth central to the nipple seen on the craniocaudal view only. This is less prominent. No other significant masses or calcifications are seen in the breast. IMPRESSION: INCOMPLETE: NEEDS ADDITIONAL IMAGING EVALUATION The asymmetry in the right breast is indeterminate. An ultrasound is recommended. Based on the Tyrer Cuzick model (a risk assessment model) the patient's lifetime risk is 8.6% and her 10 year risk is 4.0%. According to the ACR, ACS, and NCCN guidelines, an annual breast MRI exam along with mammogram is recommended if the patient's lifetime risk is 20% or greater. This exam was interpreted at Station ID: [id number]. NOTE: For mammograms, a report in lay terms will be sent to the patient. Approximately 15% of breast malignancies will not be visualized mammographically. In the management of a palpable breast mass, a negative mammogram must not discourage biopsy of a clinically suspicious lesion. Electronically Signed By: Brad Ramirez M.D. lc/:03/20/2023 11:35:04 ACR BI-RADS Category 0: Incomplete [id number]
== END ==
PROVIDERS: Family Provider Internal Medicine; PCP Internal Medicine; Referring Provider Internal Medicine; Visit Provider Internal Medicine
DX: R92.8 Other abnormal and inconclusive findings on diagnostic imaging of breast (principal); N64.89 Other specified disorders of breast
CPT/HCPCS: 76642; 77065; G0279

== ENCOUNTER 2023-05-08 14:30 | Outpatient (RCR) | payer OTHER, SELFPAY ==
[2022-05-19 13:00] VITALS: BMI 39.5
--- NOTE | 2023-02-15 16:31 | PT.OIE ---
Current Diagnoses Unilateral primary osteoarthritis, left knee (02/15/23) Past Medical History (Last Reviewed 05/20/22 @ 09:23 by Juliette Jiménez PA-C) Allergies Anesthesia complication Anxiety Cervical spinal stenosis Cleft palate COVID-19 virus infection (03/30/22) Depression Fibromyalgia GERD (gastroesophageal reflux disease) Hearing impaired HTN (hypertension) Hx of multiple concussions Hypothyroid JOHNNIE on CPAP Osteoarthritis Spinal stenosis Vocal cord dysfunction Past Surgical History (Last Reviewed 05/20/22 @ 09:23 by Juliette Jiménez PA-C) History of biopsy of temporal artery History of section History of hysterectomy History of right oophorectomy Hx of arthroscopy of right knee Hx of hand surgery Hx of knee surgery Hx of thyroidectomy (11/14/14) Hx of tonsillectomy S/P appendectomy Visit Care Team Role Provider Type Tiera Guerrero MD Family Provider Non-Staff Primary Care Provider Specialty: Pediatrics Address: [address] [place] [address], [phone] Email: Aimee Shea PA-C Attending Provider Non-Staff Referring Provider Specialty: Medical Address: [address] [place] [address], [phone] Email: Physical Therapy Initial Evaluation PT-OP-A Visit Information Start: 02/14/23 11:43 Freq: Status: Active Protocol: Document 02/15/23 09:34 SAK (Rec: 02/15/23 10:31 [facility] [id number]) Out-Patient Physical Therapy Visit Information Visit Information Visit Type Initial Evaluation Visit Start Time :34 Visit Stop Time 10:30 Total Visit Minutes 56 Visit Number 1 Evaluation Information Evaluation Date 02/15/23 PT-OP-B Current Condition Start: 02/14/23 11:43 Freq: Status: Active Protocol: Document 02/15/23 09:34 SAK (Rec: 02/15/23 10:31 [facility] [id number]) Current Condition History of Current Condition Onset Date November 2022 Current Complaints limited function left knee History of Current Condition right TKA May 2022 (prior 3 surgeries right knee). Dr Zenaida Garcia, recovery hasn't gone well, right foot numb, still painful, has had manipulation, still limited bend of knee. Left TKA done by Dr. Dewey November 2022, had PT at another clinic because she said he worked her to the point of feeling she was going to throw up; stopped PT in December. Sees Dr. Dewey today, thinks he may recommend manipulation for left. Uses recumbant exercise bike Prior Treatments and Tests TKA in November 2022 (pt can't remember date.) Future Testing and Treatments Planned sees Dr. Dewey today Treatment Goals Patient/Caregiver Goals More stable on her feet, alternate feet on stairs, take walks, improve knee motion and strength Prior Functional Status Baseline Function- ADL's Modified Independent Baseline Function- Gait indep Baseline Function- Recreation/Hobbies able to take walks Current Functional Impairments (Reported) Functional Limitations- ADL's painful and limited Functional Limitations- Mobility/Gait unable to go for walks due to pain and limited motion, step- to pattern on stairs Functional Limitations- Recreation/ unable Hobbies PT-OP-C Subjective Start: 02/14/23 11:43 Freq: Status: Active Protocol: Document 02/15/23 09:34 [facility] (Rec: 02/15/23 14:59 [facility] [id number]) OP-PT Pain Assessment Pain Assessment Grid Paper Pain Assessment Grid Completed Yes Location left knee Intensity 6 Description Aching,Burning,Spasm,Tightness PT-OP-F Manual Assessment Start: 02/14/23 11:43 Freq: Status: Active Protocol: Document 02/15/23 09:34 SAK (Rec: 02/15/23 14:59 [facility] [id number]) Manual Assessments Soft Tissue Assessment Soft Tissue Mobility Assessment decreased scar tissue mobility left knee Joint Mobility Assessment Joint Mobility Assessment dec patellar mobility left knee sup and inf PT-OP-G Mobility & Gait Start: 02/14/23 11:43 Freq: Status: Active Protocol: Document 02/15/23 09:34 SAK (Rec: 02/15/23 14:59 [facility] [id number]) OP Mobility Evaluation Transfers Sit to Stand requires UE use OP Gait Assessment Gait Gait Assistance Required: Independent Distance (Feet) 50 Assistive Devices Assistive Device None Orthotic/Prosthetic Devices or Brace: No Gait Deviations General Gait Pattern Antalgic,Decreased Stride Length,Decreased Feet Clearance Factors Limiting Gait Function Factors Limiting Gait Function Decreased Strength,Limited Range of Motion,Pain Stair Climbing Evaluation Evaluation Level of Assist On Stairs Independent Devices Stair Climbing Assistive Devices Left Railing,Right Railing Technique/Endurance Stair Climbing Technique Step to Step PT-OP-J Posture/Palpation/Skin Start: 02/14/23 11:43 Freq: Status: Active Protocol: Document 02/15/23 09:34 [facility] (Rec: 02/15/23 10:31 [facility] [id number]) Posture Evaluation Position Standing Hip Posture (L) Externally Rotated,(R) Externally Rotated Knee Posture (L) Excess Flexion Ankle/Foot Posture (L) Forefoot Eversion,(R) Forefoot Eversion Palpation Assessment Location surgical scar Palpation Findings Soft Tissue Tightness Palpation Details poor scar mobility left and right Skin Assessment Edema Assessment left knee Edema Degree 2+ Incisional Assessment Incision Appearance/Comments well-healed, no signs or symptoms of infection PT-OP-K Range of Motion Start: 02/14/23 11:43 Freq: Status: Active Protocol: Document 02/15/23 09:34 [facility] (Rec: 02/15/23 10:31 [facility] [id number]) Hip Goniometric Range of Motion Hip lenny Hip ROM WFL Yes Knee Goniometric Range of Motion Knee Left Flexion Active (degrees) 84 Flexion Passive (degrees) 90 Extension Active (degrees) 12 Extension Passive (degrees) 8 Right Knee ROM WFL No Flexion Active (degrees) 104 Flexion Passive (degrees) 100 Extension Active (degrees) 5 Extension Passive (degrees) 0 Knee ROM Limitations Knee ROM Limitations Soft Tissue Tightness,Bony Restriction,Pain,Swelling Comments scar tissue, lack of patellar mobility Ankle and Foot Goniometric Range of Motion Ankle and Foot lenny Ankle/Foot ROM WFL No Dorsiflexion with Knee Flexed 5 Dorsiflexion with Knee Extended 0 PT-OP-M Strength Start: 02/14/23 11:43 Freq: Status: Active Protocol: Document 02/15/23 09:34 [facility] (Rec: 02/15/23 14:59 [facility] [id number]) Knee Strength Knee Manual Muscle Testing Left Flexion (S2) 3- Fair- Extension (L3) 3- Fair- Right Flexion (S2) 4 Good Extension (L3) 4 Good PT-OP-Q Treatments Start: 02/14/23 11:43 Freq: Status: Active Protocol: Document 02/15/23 09:34 [facility] (Rec: 02/15/23 10:31 [facility] [id number]) Self-Care/Home Management Treatment Education Other Education updated HEP:prone quad stretch with strap, supine passive knee extension with towel roll under ankle PT-OP-R Modalities Start: 02/14/23 11:43 Freq: Status: Active Protocol: Document 02/15/23 09:34 [facility] (Rec: 02/15/23 14:59 [facility] [id number]) Hot Pack/Cold Pack Treatment Cold Pack Location left knee Patient Position Hooklying Treatment Duration (minutes) 10 PT-OP-T Assessment and Plan Start: 02/14/23 11:43 Freq: Status: Active Protocol: Document 02/15/23 09:34 [facility] (Rec: 02/15/23 14:59 [facility] [id number]) Physical Therapy Assessment Rehab Potential Rehabilitation Potential Good Evaluation Complexity Number of Personal Factors/Comorbidities 1-2 Number of Body Systems Impaired 3 Clinical Presentation at Evaluation Evolving Impairments Impairments Activity Tolerance,Gait,Pain, ROM,Soft Tissue Mobility, Strength Goals Three Impairment gait dysfunction Impairment antalgic gait on level surface , step-to pattern on stairs Residential Goal (LTG) Patient will be able to ambulate on level surfaces without limp and on stairs with alternating pattern with min UE use. LTG Duration 04/17/23 Two Impairment weakness left knee Impairment 3-/5 Short Term Goal (STG) Patient to be instructed in individualized, progressive HEP for purposes of left knee strengthening, and functionally be able to move from sit to stand with min to no UE support STG Duration 03/17/23 Sql Database Developer Goal (LTG) Patient to demonstrate at least 4+/5 muscle strength left knee to allow her to return to PLF LTG Duration 04/17/23 One Impairment lacking full knee AROM Short Term Goal (STG) Improve left knee AROM to 5- 110 degrees STG Duration 03/17/23 Sql Database Developer Goal (LTG) Improve left knee AROM to 0- 120 degrees to allow her to return to all prior activities LTG Duration 04/17/23 Assessment Summary Assessment Patient presents to PT s/p left TKA, reports bad experience with prior PT so stopped going, hasn't had PT for a few weeks. Sees Dr. Dewey and she verbalized feeling that she may need to have a manipulation of her left knee like she did with right s/p TKA in 2021. Patients left knee AROM 14-84, PROM 8-92 in sitting today. She has poor mobility of her scar tissue and patella. Her compliance with her HEP has been poor since stopping PT. Feel she will benefit from PT for progressive ther ex, manual therapy, gait training, modalities PRN to improve her left knee function and return her to PLF. Due to multiple comorbidities progress may be slow. If she receives a manipulation we will need to increase our PT frequency to 3 -5x/wk to optomize results. HEP was updated today and handout was issued. Session ended with elevation and ice left knee. POC discussed and patient was in agreement. Physical Therapy Plan Frequency and Duration Frequency of Treatment 2x/Week Duration of treatment (weeks) 8 Plan of Care Start Date 02/15/23 Plan of Care End Date 04/17/23 Therapeutic Interventions Therapeutic Interventions Gait Training,Home Exercise Program,Manual Therapy,Patient /Caregiver Education,Self-Care /Home Management,Soft Tissue Mobilization,Taping, Therapeutic Activities, Therapeutic Exercises Modalities Cold Pack/Ice Massage,Electric Stimulation,Hot Packs Next Visit Focus/Plan Next Note Type Treatment Note Next Visit Plan Discuss patient's appointment with her surgeon. Start with ex bike, review HEP and progress ther ex focused on knee ROM, provide patellar mobilization and soft tissue mobilization of surgical scar. ENd with ice and elevation
--- NOTE | 2023-02-15 16:31 | PT.OPPOC ---
Physical, Occupational & Speech Therapy At [facility] Current Diagnoses Unilateral primary osteoarthritis, left knee (02/15/23) Visit Care Team Role Provider Type Tiera Guerrero MD Family Provider Non-Staff Primary Care Provider Specialty: Pediatrics Address: [address] [place] [address], [phone] Email: Aimee Shea PA-C Attending Provider Non-Staff Referring Provider Specialty: Medical Address: [address] [place] [address], [phone] Email: Plan Of Care PT-OP-T Assessment and Plan Start: 02/14/23 11:43 Freq: Status: Active Protocol: Document 02/15/23 09:34 SAK (Rec: 02/15/23 14:59 [facility]AK [id number]) Physical Therapy Assessment Rehab Potential Rehabilitation Potential Good Evaluation Complexity Number of Personal Factors/Comorbidities 1-2 Number of Body Systems Impaired 3 Clinical Presentation at Evaluation Evolving Impairments Impairments Activity Tolerance,Gait,Pain, ROM,Soft Tissue Mobility, Strength Goals Three Impairment gait dysfunction Impairment antalgic gait on level surface , step-to pattern on stairs Dredge Captain Goal (LTG) Patient will be able to ambulate on level surfaces without limp and on stairs with alternating pattern with min UE use. LTG Duration 04/17/23 Two Impairment weakness left knee Impairment 3-/5 Short Term Goal (STG) Patient to be instructed in individualized, progressive HEP for purposes of left knee strengthening, and functionally be able to move from sit to stand with min to no UE support STG Duration 03/17/23 Dredge Captain Goal (LTG) Patient to demonstrate at least 4+/5 muscle strength left knee to allow her to return to PLF LTG Duration 04/17/23 One Impairment lacking full knee AROM Short Term Goal (STG) Improve left knee AROM to 5- 110 degrees STG Duration 03/17/23 Residential Goal (LTG) Improve left knee AROM to 0- 120 degrees to allow her to return to all prior activities LTG Duration 04/17/23 Assessment Summary Assessment Patient presents to PT s/p left TKA, reports bad experience with prior PT so stopped going, hasn't had PT for a few weeks. Sees Dr. Dewey and she verbalized feeling that she may need to have a manipulation of her left knee like she did with right s/p TKA in 2021. Patients left knee AROM 14-84, PROM 8-92 in sitting today. She has poor mobility of her scar tissue and patella. Her compliance with her HEP has been poor since stopping PT. Feel she will benefit from PT for progressive ther ex, manual therapy, gait training, modalities PRN to improve her left knee function and return her to PLF. Due to multiple comorbidities progress may be slow. If she receives a manipulation we will need to increase our PT frequency to 3 -5x/wk to optomize results. HEP was updated today and handout was issued. Session ended with elevation and ice left knee. POC discussed and patient was in agreement. Physical Therapy Plan Frequency and Duration Frequency of Treatment 2x/Week Duration of treatment (weeks) 8 Plan of Care Start Date 02/15/23 Plan of Care End Date 04/17/23 Therapeutic Interventions Therapeutic Interventions Gait Training,Home Exercise Program,Manual Therapy,Patient /Caregiver Education,Self-Care /Home Management,Soft Tissue Mobilization,Taping, Therapeutic Activities, Therapeutic Exercises Modalities Cold Pack/Ice Massage,Electric Stimulation,Hot Packs Next Visit Focus/Plan Next Note Type Treatment Note Next Visit Plan Discuss patient's appointment with her surgeon. Start with ex bike, review HEP and progress ther ex focused on knee ROM, provide patellar mobilization and soft tissue mobilization of surgical scar. ENd with ice and elevation Plan of Care Dates Plan of Care Start Date 02/15/23 Plan of Care End Date 04/17/23 Electronically Signed by: Jessica Blackmon, PT 02/15/23 5136 If you are in agreement with this Plan of Care, please return a signed and dated copy. I have reviewed this Plan of Care and certify that the skilled therapy services above are required to meet the patient?s needs. Physician Signature Date Printed Name and Credentials Clinical Instructor Signature Printed Name and Credentials
--- NOTE | 2023-02-22 13:29 | PT-OP ANOTE ---
cancelled PT appt via [employer]
--- NOTE | 2023-02-24 12:58 | PT.OTN ---
Current Diagnoses Unilateral primary osteoarthritis, left knee (02/24/23) Physical Therapy Treatment Note PT-OP-A Visit Information Start: 02/14/23 11:43 Freq: Status: Active Protocol: Document 02/24/23 10:33 NBM (Rec: 02/24/23 11:20 NBM [id number]) Out-Patient Physical Therapy Visit Information Visit Information Visit Type Treatment Note Visit Start Time 10:19 Visit Stop Time 11:13 Total Visit Minutes 54 Visit Number 2 Number of KEY PUNCH TEACHER Visits 1 PT-OP-B Current Condition Start: 02/14/23 11:43 Freq: Status: Active Protocol: Document 02/15/23 09:34 SAK (Rec: 02/15/23 10:31 [facility] [id number]) Current Condition History of Current Condition Onset Date November 2022 Current Complaints limited function left knee History of Current Condition right TKA May 2022 (prior 3 surgeries right knee). Dr Zenaida Garcia, recovery hasn't gone well, right foot numb, still painful, has had manipulation, still limited bend of knee. Left TKA done by Dr. Dewey November 2022, had PT at another clinic because she said he worked her to the point of feeling she was going to throw up; stopped PT in December. Sees Dr. Dewey today, thinks he may recommend manipulation for left. Uses recumbant exercise bike Prior Treatments and Tests TKA in November 2022 (pt can't remember date.) Future Testing and Treatments Planned sees Dr. Dewey today Treatment Goals Patient/Caregiver Goals More stable on her feet, alternate feet on stairs, take walks, improve knee motion and strength Prior Functional Status Baseline Function- ADL's Modified Independent Baseline Function- Gait indep Baseline Function- Recreation/Hobbies able to take walks Current Functional Impairments (Reported) Functional Limitations- ADL's painful and limited Functional Limitations- Mobility/Gait unable to go for walks due to pain and limited motion, step- to pattern on stairs Functional Limitations- Recreation/ unable Hobbies PT-OP-C Subjective Start: 02/14/23 11:43 Freq: Status: Active Protocol: Document 02/24/23 10:33 NBM (Rec: 02/24/23 11:20 NBM [id number]) OP-PT Subjective Patient Comments Patient Comments Antonette reports she had manipulation under anesthesia yesterday 9/14 on L knee. She tried to schedule more visits but was advised insurance has only authorized 2x/week. She has been doing her ex's until the manipulation yesterday and is going to a theater performance in [place] this weekend. PT-OP-F Manual Assessment Start: 02/14/23 11:43 Freq: Status: Active Protocol: Document 02/15/23 09:34 [facility] (Rec: 02/15/23 14:59 [facility] [id number]) Manual Assessments Soft Tissue Assessment Soft Tissue Mobility Assessment decreased scar tissue mobility left knee Joint Mobility Assessment Joint Mobility Assessment dec patellar mobility left knee sup and inf PT-OP-G Mobility & Gait Start: 02/14/23 11:43 Freq: Status: Active Protocol: Document 02/15/23 09:34 [facility] (Rec: 02/15/23 14:59 [facility] [id number]) OP Mobility Evaluation Transfers Sit to Stand requires UE use OP Gait Assessment Gait Gait Assistance Required: Independent Distance (Feet) 50 Assistive Devices Assistive Device None Orthotic/Prosthetic Devices or Brace: No Gait Deviations General Gait Pattern Antalgic,Decreased Stride Length,Decreased Feet Clearance Factors Limiting Gait Function Factors Limiting Gait Function Decreased Strength,Limited Range of Motion,Pain Stair Climbing Evaluation Evaluation Level of Assist On Stairs Independent Devices Stair Climbing Assistive Devices Left Railing,Right Railing Technique/Endurance Stair Climbing Technique Step to Step PT-OP-J Posture/Palpation/Skin Start: 02/14/23 11:43 Freq: Status: Active Protocol: Document 02/15/23 09:34 [facility] (Rec: 02/15/23 10:31 [facility] [id number]) Posture Evaluation Position Standing Hip Posture (L) Externally Rotated,(R) Externally Rotated Knee Posture (L) Excess Flexion Ankle/Foot Posture (L) Forefoot Eversion,(R) Forefoot Eversion Palpation Assessment Location surgical scar Palpation Findings Soft Tissue Tightness Palpation Details poor scar mobility left and right Skin Assessment Edema Assessment left knee Edema Degree 2+ Incisional Assessment Incision Appearance/Comments well-healed, no signs or symptoms of infection PT-OP-K Range of Motion Start: 02/14/23 11:43 Freq: Status: Active Protocol: Document 02/24/23 10:33 [facility] (Rec: 02/27/23 15:33 NBM [id number]) Knee Goniometric Range of Motion Knee Left Patient Position Supine Flexion Active (degrees) 90 Flexion Passive (degrees) 94 Extension Active (degrees) 4 Extension Passive (degrees) 5 Comments End of Session PT-OP-M Strength Start: 02/14/23 11:43 Freq: Status: Active Protocol: Document 02/15/23 09:34 [facility]AK (Rec: 02/15/23 14:59 [facility] [id number]) Knee Strength Knee Manual Muscle Testing Left Flexion (S2) 3- Fair- Extension (L3) 3- Fair- Right Flexion (S2) 4 Good Extension (L3) 4 Good PT-OP-Q Treatments Start: 02/14/23 11:43 Freq: Status: Active Protocol: Document 02/24/23 10:33 NBM (Rec: 02/24/23 11:20 NBM [id number]) Cardio Equipment Recumbent Bicycle Duration (Minutes) 10 Resistance 0 Other fwd/ bwd slow rocking Therapeutic Exercises Supine Exercises HS/Calf stretch Supine Exercise Name HEP review Equipment Used w/ strap Reps/Minutes 2x30s quad set Side left Equipment Used 1/2 foam Reps/Minutes 10x 3-5 SH Comments cues for breath Knee extension gravity stretch Supine Exercise Name propped foot -HEP review Side left Equipment Used 1/2 foam Reps/Minutes 2 x 30s Prone Exercises quad stretch Prone Exercise Name HEP review Side left Equipment Used strap Reps/Minutes 2x30s Comments cues for LE alignment Sitting Exercises knee flexion stretch Sitting Exercise Name 1. fwd flexion HEP 2. scooterboard AROM and PROM Side left Equipment Used mesh chair Reps/Minutes 5 x 5SH ea Manual Therapy Treatment Soft Tissue Mobilization L knee Body Location L quads, adductors Mobilization Type Myofascial Release,Rolling Intensity/Depth Moderate Body Position Hooklying Self-Care/Home Management Treatment Education Other Education Pt educated in breathwork to reduce guarding and for pain dampening. Added to HEP: wall slides and heel slides - HO given. PT-OP-R Modalities Start: 02/14/23 11:43 Freq: Status: Active Protocol: Document 02/24/23 10:33 N[facility] (Rec: 02/28/23 12:57 NBM [id number]) Hot Pack/Cold Pack Treatment Cold Pack Location left knee Patient Position Hooklying Treatment Duration (minutes) 10 Patient Tolerance Good PT-OP-T Assessment and Plan Start: 02/14/23 11:43 Freq: Status: Active Protocol: Document 02/24/23 10:33 [facility] (Rec: 02/24/23 11:20 [facility] [id number]) Physical Therapy Assessment Impairments Impairments Activity Tolerance,Gait,Pain, ROM,Soft Tissue Mobility, Strength Goals Three Impairment gait dysfunction Impairment antalgic gait on level surface , step-to pattern on stairs Core Sucker Goal (LTG) Patient will be able to ambulate on level surfaces without limp and on stairs with alternating pattern with min UE use. LTG Duration 04/17/23 Two Impairment weakness left knee Impairment 3-/5 Short Term Goal (STG) Patient to be instructed in individualized, progressive HEP for purposes of left knee strengthening, and functionally be able to move from sit to stand with min to no UE support STG Duration 03/17/23 [facility] Goal (LTG) Patient to demonstrate at least 4+/5 muscle strength left knee to allow her to return to PLF LTG Duration 04/17/23 One Impairment lacking full knee AROM Short Term Goal (STG) Improve left knee AROM to 5- 110 degrees STG Duration 03/17/23 [facility] Goal (LTG) Improve left knee AROM to 0- 120 degrees to allow her to return to all prior activities LTG Duration 04/17/23 Assessment Summary Assessment Pt had manipulation under anesthesia to L knee yesterday 02/23 - schedulers notified to schedule pt 3-5x/week accordingly per PT direction. Treatment focus on L knee ROM and HEP review. EOS ROM: Flexion AROM: 90 deg, PROM 94 deg supine. Extension: AROM 4 deg PROM 5 deg. Pt tends to hold breath with pain apprehension and is instructed in breathwork to improve guarding and for pain dampening. Pt encouraged to use SPC and ice. Added to HEP: wall slides and heel slides - HO given. Physical Therapy Plan Frequency and Duration Frequency of Treatment 2x/Week Duration of treatment (weeks) 8 Plan of Care Start Date 02/15/23 Plan of Care End Date 04/17/23 Therapeutic Interventions Therapeutic Interventions Gait Training,Home Exercise Program,Manual Therapy,Patient /Caregiver Education,Self-Care /Home Management,Soft Tissue Mobilization,Taping, Therapeutic Activities, Therapeutic Exercises Modalities Cold Pack/Ice Massage,Electric Stimulation,Hot Packs Next Visit Focus/Plan Next Note Type Treatment Note Next Visit Plan Start with ex bike, review HEP and progress ther ex focused on knee ROM, provide patellar mobilization and soft tissue mobilization of surgical scar. ENd with ice and elevation
--- NOTE | 2023-02-27 15:29 | PT.OTN ---
Current Diagnoses Unilateral primary osteoarthritis, left knee (02/27/23) Physical Therapy Treatment Note PT-OP-A Visit Information Start: 02/14/23 11:43 Freq: Status: Active Protocol: Document 02/27/23 14:25 NBM (Rec: 02/27/23 15:29 NBM [id number]) Out-Patient Physical Therapy Visit Information Visit Information Visit Type Treatment Note Visit Start Time 14:20 Visit Stop Time 15:05 Total Visit Minutes 45 Visit Number 3 Number of BUSINESS ANALYTICS ANALYST Visits 2 Evaluation Information Evaluation Date 02/15/23 PT-OP-B Current Condition Start: 02/14/23 11:43 Freq: Status: Active Protocol: Document 02/15/23 09:34 SAK (Rec: 02/15/23 10:31 SAK [id number]) Current Condition History of Current Condition Onset Date November 2022 Current Complaints limited function left knee History of Current Condition right TKA May 2022 (prior 3 surgeries right knee). Dr Zenaida Garcia, recovery hasn't gone well, right foot numb, still painful, has had manipulation, still limited bend of knee. Left TKA done by Dr. Dewey November 2022, had PT at another clinic because she said he worked her to the point of feeling she was going to throw up; stopped PT in December. Sees Dr. Dewey today, thinks he may recommend manipulation for left. Uses recumbant exercise bike Prior Treatments and Tests TKA in November 2022 (pt can't remember date.) Future Testing and Treatments Planned sees Dr. Dewey today Treatment Goals Patient/Caregiver Goals More stable on her feet, alternate feet on stairs, take walks, improve knee motion and strength Prior Functional Status Baseline Function- ADL's Modified Independent Baseline Function- Gait indep Baseline Function- Recreation/Hobbies able to take walks Current Functional Impairments (Reported) Functional Limitations- ADL's painful and limited Functional Limitations- Mobility/Gait unable to go for walks due to pain and limited motion, step- to pattern on stairs Functional Limitations- Recreation/ unable Hobbies PT-OP-C Subjective Start: 02/14/23 11:43 Freq: Status: Active Protocol: Document 02/27/23 14:25 NBM (Rec: 02/27/23 15:29 NBM [id number]) OP-PT Subjective Patient Comments Patient Comments Antonette reports her L knee is really sore 6-7/10 today likely due to all the walking and stairs she did at the theater in [place] last weekend; she used her SPC. She focused on stretches but did not do heel slides or wall slides at home. She is going [place] in [place] today for the week but will be able to do her ex's and make her PT appts. PT-OP-F Manual Assessment Start: 02/14/23 11:43 Freq: Status: Active Protocol: Document 02/15/23 09:34 [facility] (Rec: 02/15/23 14:59 [facility] [id number]) Manual Assessments Soft Tissue Assessment Soft Tissue Mobility Assessment decreased scar tissue mobility left knee Joint Mobility Assessment Joint Mobility Assessment dec patellar mobility left knee sup and inf PT-OP-G Mobility & Gait Start: 02/14/23 11:43 Freq: Status: Active Protocol: Document 02/15/23 09:34 [facility] (Rec: 02/15/23 14:59 [facility] [id number]) OP Mobility Evaluation Transfers Sit to Stand requires UE use OP Gait Assessment Gait Gait Assistance Required: Independent Distance (Feet) 50 Assistive Devices Assistive Device None Orthotic/Prosthetic Devices or Brace: No Gait Deviations General Gait Pattern Antalgic,Decreased Stride Length,Decreased Feet Clearance Factors Limiting Gait Function Factors Limiting Gait Function Decreased Strength,Limited Range of Motion,Pain Stair Climbing Evaluation Evaluation Level of Assist On Stairs Independent Devices Stair Climbing Assistive Devices Left Railing,Right Railing Technique/Endurance Stair Climbing Technique Step to Step PT-OP-J Posture/Palpation/Skin Start: 02/14/23 11:43 Freq: Status: Active Protocol: Document 02/15/23 09:34 [facility] (Rec: 02/15/23 10:31 [facility] [id number]) Posture Evaluation Position Standing Hip Posture (L) Externally Rotated,(R) Externally Rotated Knee Posture (L) Excess Flexion Ankle/Foot Posture (L) Forefoot Eversion,(R) Forefoot Eversion Palpation Assessment Location surgical scar Palpation Findings Soft Tissue Tightness Palpation Details poor scar mobility left and right Skin Assessment Edema Assessment left knee Edema Degree 2+ Incisional Assessment Incision Appearance/Comments well-healed, no signs or symptoms of infection PT-OP-K Range of Motion Start: 02/14/23 11:43 Freq: Status: Active Protocol: Document 02/15/23 09:34 [facility] (Rec: 02/15/23 10:31 SAK [id number]) Hip Goniometric Range of Motion Hip lenny Hip ROM WFL Yes Knee Goniometric Range of Motion Knee Left Flexion Active (degrees) 84 Flexion Passive (degrees) 90 Extension Active (degrees) 12 Extension Passive (degrees) 8 Right Knee ROM WFL No Flexion Active (degrees) 104 Flexion Passive (degrees) 100 Extension Active (degrees) 5 Extension Passive (degrees) 0 Knee ROM Limitations Knee ROM Limitations Soft Tissue Tightness,Bony Restriction,Pain,Swelling Comments scar tissue, lack of patellar mobility Ankle and Foot Goniometric Range of Motion Ankle and Foot lenny Ankle/Foot ROM WFL No Dorsiflexion with Knee Flexed 5 Dorsiflexion with Knee Extended 0 PT-OP-M Strength Start: 02/14/23 11:43 Freq: Status: Active Protocol: Document 02/15/23 09:34 SAK (Rec: 02/15/23 14:59 [facility] [id number]) Knee Strength Knee Manual Muscle Testing Left Flexion (S2) 3- Fair- Extension (L3) 3- Fair- Right Flexion (S2) 4 Good Extension (L3) 4 Good PT-OP-Q Treatments Start: 02/14/23 11:43 Freq: Status: Active Protocol: Document 02/27/23 14:25 NBM (Rec: 02/27/23 15:29 NBM [id number]) Cardio Equipment Recumbent Elliptical (Biodex) Duration (Minutes) 6 Resistance 1 Seat Position 7>6 seen Other pt reports pain improves Gym Equipment Shuttle Recovery heel raises Resistance 50# Shuttle Recovery Platform Stable Reps/Time x20 Bilateral Squats Details pain-free range Resistance 50# Shuttle Recovery Platform Stable Reps/Time 2x10 Therapeutic Ball 55cm Exercise Details hamstring curls Ball Size/Color 55cm Body Position Hooklying Reps/Duration x10 Therapeutic Exercises Supine Exercises wall slides Side left Equipment Used slider sheet Reps/Minutes 5' heel slides Side left Equipment Used slider sheet Reps/Minutes x10 Comments vc for breath, w/ overpressure PT-OP-R Modalities Start: 02/14/23 11:43 Freq: Status: Active Protocol: Document 02/15/23 09:34 [facility] (Rec: 02/15/23 14:59 [facility] [id number]) Hot Pack/Cold Pack Treatment Cold Pack Location left knee Patient Position Hooklying Treatment Duration (minutes) 10 PT-OP-T Assessment and Plan Start: 02/14/23 11:43 Freq: Status: Active Protocol: Document 02/27/23 14:25 [facility] (Rec: 02/27/23 15:29 [facility] [id number]) Physical Therapy Assessment Impairments Impairments Activity Tolerance,Gait,Pain, ROM,Soft Tissue Mobility, Strength Goals Three Impairment gait dysfunction Impairment antalgic gait on level surface , step-to pattern on stairs Mcc Goal (LTG) Patient will be able to ambulate on level surfaces without limp and on stairs with alternating pattern with min UE use. LTG Duration 04/17/23 Two Impairment weakness left knee Impairment 3-/5 Short Term Goal (STG) Patient to be instructed in individualized, progressive HEP for purposes of left knee strengthening, and functionally be able to move from sit to stand with min to no UE support STG Duration 03/17/23 Mcc Goal (LTG) Patient to demonstrate at least 4+/5 muscle strength left knee to allow her to return to PLF LTG Duration 04/17/23 One Impairment lacking full knee AROM Short Term Goal (STG) Improve left knee AROM to 5- 110 degrees STG Duration 03/17/23 Mcc Goal (LTG) Improve left knee AROM to 0- 120 degrees to allow her to return to all prior activities LTG Duration 04/17/23 Progress Towards Goals Progress Towards Goals Progressing Toward Goals Assessment Summary Assessment Antonette tolerates Bilateral squats and Heel raises on Shuttle recovery with initial cues for LE alignment and no breathholding throughout treatment session. Pain improves from 6-7/10 start of session to 4/10 end of session . AROM improves 4 deg from 9/ 15 to 94 deg today, and PROM improves 3 deg from 9/15 to 97 deg today w/ cues for breath. Pt declines ice end of session and is encouraged to ice knee at home. Physical Therapy Plan Frequency and Duration Frequency of Treatment 2x/Week Duration of treatment (weeks) 8 Plan of Care Start Date 02/15/23 Plan of Care End Date 04/17/23 Therapeutic Interventions Therapeutic Interventions Gait Training,Home Exercise Program,Manual Therapy,Patient /Caregiver Education,Self-Care /Home Management,Soft Tissue Mobilization,Taping, Therapeutic Activities, Therapeutic Exercises Modalities Cold Pack/Ice Massage,Electric Stimulation,Hot Packs Next Visit Focus/Plan Next Note Type Treatment Note Next Visit Plan Discuss patient's appointment with her surgeon. Start with ex bike, review HEP and progress ther ex focused on knee ROM, provide patellar mobilization and soft tissue mobilization of surgical scar. ENd with ice and elevation
--- NOTE | 2023-03-01 13:45 | PT.OTN ---
Current Diagnoses Unilateral primary osteoarthritis, left knee (03/01/23) Physical Therapy Treatment Note PT-OP-A Visit Information Start: 02/14/23 11:43 Freq: Status: Active Protocol: Document 03/01/23 12:48 SP (Rec: 03/01/23 13:40 SP [id number]) Out-Patient Physical Therapy Visit Information Visit Information Visit Type Treatment Note Visit Start Time 12:48 Visit Stop Time 13:45 Total Visit Minutes 57 Visit Number 4 Number of STEM ROLLER Visits 3 Evaluation Information Evaluation Date 02/15/23 PT-OP-B Current Condition Start: 02/14/23 11:43 Freq: Status: Active Protocol: Document 02/15/23 09:34 SAK (Rec: 02/15/23 10:31 SAK [id number]) Current Condition History of Current Condition Onset Date November 2022 Current Complaints limited function left knee History of Current Condition right TKA May 2022 (prior 3 surgeries right knee). Dr Zenaida Garcia, recovery hasn't gone well, right foot numb, still painful, has had manipulation, still limited bend of knee. Left TKA done by Dr. Dewey November 2022, had PT at another clinic because she said he worked her to the point of feeling she was going to throw up; stopped PT in December. Sees Dr. Dewey today, thinks he may recommend manipulation for left. Uses recumbant exercise bike Prior Treatments and Tests TKA in November 2022 (pt can't remember date.) Future Testing and Treatments Planned sees Dr. Dewey today Treatment Goals Patient/Caregiver Goals More stable on her feet, alternate feet on stairs, take walks, improve knee motion and strength Prior Functional Status Baseline Function- ADL's Modified Independent Baseline Function- Gait indep Baseline Function- Recreation/Hobbies able to take walks Current Functional Impairments (Reported) Functional Limitations- ADL's painful and limited Functional Limitations- Mobility/Gait unable to go for walks due to pain and limited motion, step- to pattern on stairs Functional Limitations- Recreation/ unable Hobbies PT-OP-C Subjective Start: 02/14/23 11:43 Freq: Status: Active Protocol: Document 03/01/23 12:48 SP (Rec: 03/01/23 13:40 SP [id number]) OP-PT Subjective Patient Comments Patient Comments Pt reports L knee really stiff and sore, demonstrating hip hiking on L upon arrival. PT-OP-F Manual Assessment Start: 02/14/23 11:43 Freq: Status: Active Protocol: Document 02/15/23 09:34 [facility] (Rec: 02/15/23 14:59 [facility] [id number]) Manual Assessments Soft Tissue Assessment Soft Tissue Mobility Assessment decreased scar tissue mobility left knee Joint Mobility Assessment Joint Mobility Assessment dec patellar mobility left knee sup and inf PT-OP-G Mobility & Gait Start: 02/14/23 11:43 Freq: Status: Active Protocol: Document 02/15/23 09:34 [facility] (Rec: 02/15/23 14:59 [facility] [id number]) OP Mobility Evaluation Transfers Sit to Stand requires UE use OP Gait Assessment Gait Gait Assistance Required: Independent Distance (Feet) 50 Assistive Devices Assistive Device None Orthotic/Prosthetic Devices or Brace: No Gait Deviations General Gait Pattern Antalgic,Decreased Stride Length,Decreased Feet Clearance Factors Limiting Gait Function Factors Limiting Gait Function Decreased Strength,Limited Range of Motion,Pain Stair Climbing Evaluation Evaluation Level of Assist On Stairs Independent Devices Stair Climbing Assistive Devices Left Railing,Right Railing Technique/Endurance Stair Climbing Technique Step to Step PT-OP-J Posture/Palpation/Skin Start: 02/14/23 11:43 Freq: Status: Active Protocol: Document 02/15/23 09:34 [facility] (Rec: 02/15/23 10:31 [facility] [id number]) Posture Evaluation Position Standing Hip Posture (L) Externally Rotated,(R) Externally Rotated Knee Posture (L) Excess Flexion Ankle/Foot Posture (L) Forefoot Eversion,(R) Forefoot Eversion Palpation Assessment Location surgical scar Palpation Findings Soft Tissue Tightness Palpation Details poor scar mobility left and right Skin Assessment Edema Assessment left knee Edema Degree 2+ Incisional Assessment Incision Appearance/Comments well-healed, no signs or symptoms of infection PT-OP-K Range of Motion Start: 02/14/23 11:43 Freq: Status: Active Protocol: Document 03/01/23 12:48 SP (Rec: 03/01/23 13:40 SP [id number]) Knee Goniometric Range of Motion Knee Left Patient Position Supine Flexion Active (degrees) 89 Flexion Passive (degrees) 94 Extension Active (degrees) 8 Comments end session PT-OP-M Strength Start: 02/14/23 11:43 Freq: Status: Active Protocol: Document 02/15/23 09:34 SAK (Rec: 02/15/23 14:59 SAK [id number]) Knee Strength Knee Manual Muscle Testing Left Flexion (S2) 3- Fair- Extension (L3) 3- Fair- Right Flexion (S2) 4 Good Extension (L3) 4 Good PT-OP-Q Treatments Start: 02/14/23 11:43 Freq: Status: Active Protocol: Document 03/01/23 12:48 SP (Rec: 03/01/23 13:40 SP [id number]) Cardio Equipment Recumbent Stepper (Sci-Fit) Duration (Minutes) 6 Resistance 1 Seat Position 8 Other UEs&LEs occasional stretch- 93 deg L knee flexion Therapeutic Exercises Supine Exercises hip IR isometric Supine Exercise Name initiated in PT: long axis hip IR holds Side right Reps/Minutes 10 reps x5 SH Comments reports hold pulls on back R hip (tight), L adductor weakness L knee flexion Supine Exercise Name initiated assisted knee flexion Side left Resistance ankle over 55cm tball Equipment Used use strap on L ankle Reps/Minutes 10 reps x10 SH Knee extension gravity stretch Supine Exercise Name propped foot -HEP review Side left Equipment Used rectangle bolster Reps/Minutes 2 x 30s, 2 set x5 SH QS Comments relax assisted gravity stretch between sets Sitting Exercises self STMs Sitting Exercise Name added: quad; discussed rolling pin ITB, calf and discussed ball roll glut Side left Equipment Used rolling pin Reps/Minutes 2 min Comments good feedback response to self massage to quad- discussed ball roll glut knee flexion stretch Sitting Exercise Name Fwd flexion HEP Side left Equipment Used mesh chair Reps/Minutes 5 x 5SH ea Comments knee flexion then stationary and scoot fwd in chair Standing Exercises hurdles Standing Exercise Name in PT: fwd, lateral Resistance AROM step to assist increase AROM Reps/Minutes 4 hurdles x4 laps Comments cued knee flexion & DF knee to chest, lessened range LLE circumduct. L knee flexion/step Standing Exercise Name added to HEP Side left Resistance AAROM Equipment Used BHR support, RLE on 2nd step Reps/Minutes 10x 3 SH Comments 91 deg Gait Training Gait Activity gait in mirror Device Used 0 Level of Assistance S Distance/Duration 20 ft x4 laps Treatment Focus LLE TKE/heel toe/DF w/ IV, trunk centering Comments Improved L knee flexion and DF for heel toe foot clearance with reps. Manual Therapy Treatment Soft Tissue Mobilization L knee Body Location L quads, adductors Mobilization Type Instrument Assisted,Rolling Intensity/Depth Moderate Body Position Sitting Comments manual and ed rolling pin scar Body Location L knee Mobilization Type Cross-Friction Intensity/Depth Moderate Body Position Supine Comments Pt is performing scar tissue mobilization. GOod mobility. Joint Mobilizations L patella mob Comments Limited extension ROM 8 deg today end tx, challenged with relaxation quad for patella mobs. tibfem Direction PA Grade I Body Position Hooklying Comments AAROM in to L knee flexion. Taping K taping Body Location future: K tape for edema reducation PT-OP-R Modalities Start: 02/14/23 11:43 Freq: Status: Active Protocol: Document 03/01/23 12:48 SP (Rec: 03/01/23 13:40 SP [id number]) Hot Pack/Cold Pack Treatment Cold Pack Location left knee Patient Position Hooklying Treatment Duration (minutes) 10 Patient Tolerance Good PT-OP-T Assessment and Plan Start: 02/14/23 11:43 Freq: Status: Active Protocol: Document 03/01/23 12:48 SP (Rec: 03/01/23 13:40 SP [id number]) Physical Therapy Assessment Goals Three Impairment gait dysfunction Impairment antalgic gait on level surface , step-to pattern on stairs Mcfp Goal (LTG) Patient will be able to ambulate on level surfaces without limp and on stairs with alternating pattern with min UE use. LTG Duration 04/17/23 Two Impairment weakness left knee Impairment 3-/5 Short Term Goal (STG) Patient to be instructed in individualized, progressive HEP for purposes of left knee strengthening, and functionally be able to move from sit to stand with min to no UE support STG Duration 03/17/23 Mcfp Goal (LTG) Patient to demonstrate at least 4+/5 muscle strength left knee to allow her to return to PLF LTG Duration 04/17/23 One Impairment lacking full knee AROM Short Term Goal (STG) Improve left knee AROM to 5- 110 degrees 03/01/23: 8-94 deg PROM STG Duration 03/17/23 Mcfp Goal (LTG) Improve left knee AROM to 0- 120 degrees to allow her to return to all prior activities LTG Duration 04/17/23 Assessment Summary Assessment Pt improved understanding and proper form with use mirror LLE repositioning during gait, trying to correct LLE DF, hip &knee flexion, hip flex IR, trunk centering with allowance arm swing for normalizing gait. She continues to have swelling in L knee. Pt reports tries to perform passive knee hangs at home to improve L knee extension ROM. Physical Therapy Plan Frequency and Duration Frequency of Treatment 2x/Week Duration of treatment (weeks) 8 Plan of Care Start Date 02/15/23 Plan of Care End Date 04/17/23 Therapeutic Interventions Therapeutic Interventions Gait Training,Home Exercise Program,Manual Therapy,Patient /Caregiver Education,Self-Care /Home Management,Soft Tissue Mobilization,Taping, Therapeutic Activities, Therapeutic Exercises Modalities Cold Pack/Ice Massage,Electric Stimulation,Hot Packs Next Visit Focus/Plan Next Note Type Treatment Note Next Visit Plan Discuss patient's appointment with her surgeon. Start with ex bike, review HEP and progress ther ex focused on knee ROM, provide patellar mobilization and soft tissue mobilization of surgical scar. ENd with ice and elevation
--- NOTE | 2023-03-03 14:35 | PT.OTN ---
Current Diagnoses Unilateral primary osteoarthritis, left knee (03/03/23) Physical Therapy Treatment Note PT-OP-A Visit Information Start: 02/14/23 11:43 Freq: Status: Active Protocol: Document 03/03/23 10:20 NBM (Rec: 03/03/23 11:32 NBM [id number]) Out-Patient Physical Therapy Visit Information Visit Information Visit Type Treatment Note Visit Start Time 10:18 Visit Stop Time 11:05 Total Visit Minutes 43 Visit Number 5 Number of FISH CHECKER Visits 4 PT-OP-B Current Condition Start: 02/14/23 11:43 Freq: Status: Active Protocol: Document 02/15/23 09:34 SAK (Rec: 02/15/23 10:31 SAK [id number]) Current Condition History of Current Condition Onset Date November 2022 Current Complaints limited function left knee History of Current Condition right TKA May 2022 (prior 3 surgeries right knee). Dr Zenaida Garcia, recovery hasn't gone well, right foot numb, still painful, has had manipulation, still limited bend of knee. Left TKA done by Dr. Dewey November 2022, had PT at another clinic because she said he worked her to the point of feeling she was going to throw up; stopped PT in December. Sees Dr. Dewey today, thinks he may recommend manipulation for left. Uses recumbant exercise bike Prior Treatments and Tests TKA in November 2022 (pt can't remember date.) Future Testing and Treatments Planned sees Dr. Dewey today Treatment Goals Patient/Caregiver Goals More stable on her feet, alternate feet on stairs, take walks, improve knee motion and strength Prior Functional Status Baseline Function- ADL's Modified Independent Baseline Function- Gait indep Baseline Function- Recreation/Hobbies able to take walks Current Functional Impairments (Reported) Functional Limitations- ADL's painful and limited Functional Limitations- Mobility/Gait unable to go for walks due to pain and limited motion, step- to pattern on stairs Functional Limitations- Recreation/ unable Hobbies PT-OP-C Subjective Start: 02/14/23 11:43 Freq: Status: Active Protocol: Document 03/03/23 10:20 NBM (Rec: 03/03/23 11:32 NBM [id number]) OP-PT Subjective Patient Comments Patient Comments Antonette reports stiff and sore today. She reports she did a trail 3/4 of a mile with cane. She doesn't have ice or a rolling pin at the trailer. She's doing the side ex's. She sees Dr. Jon on 03/08 and then ortho surgeon 04/05. PT-OP-F Manual Assessment Start: 02/14/23 11:43 Freq: Status: Active Protocol: Document 02/15/23 09:34 [facility] (Rec: 02/15/23 14:59 [facility] [id number]) Manual Assessments Soft Tissue Assessment Soft Tissue Mobility Assessment decreased scar tissue mobility left knee Joint Mobility Assessment Joint Mobility Assessment dec patellar mobility left knee sup and inf PT-OP-G Mobility & Gait Start: 02/14/23 11:43 Freq: Status: Active Protocol: Document 02/15/23 09:34 [facility] (Rec: 02/15/23 14:59 [facility] [id number]) OP Mobility Evaluation Transfers Sit to Stand requires UE use OP Gait Assessment Gait Gait Assistance Required: Independent Distance (Feet) 50 Assistive Devices Assistive Device None Orthotic/Prosthetic Devices or Brace: No Gait Deviations General Gait Pattern Antalgic,Decreased Stride Length,Decreased Feet Clearance Factors Limiting Gait Function Factors Limiting Gait Function Decreased Strength,Limited Range of Motion,Pain Stair Climbing Evaluation Evaluation Level of Assist On Stairs Independent Devices Stair Climbing Assistive Devices Left Railing,Right Railing Technique/Endurance Stair Climbing Technique Step to Step PT-OP-J Posture/Palpation/Skin Start: 02/14/23 11:43 Freq: Status: Active Protocol: Document 02/15/23 09:34 [facility] (Rec: 02/15/23 10:31 [facility] [id number]) Posture Evaluation Position Standing Hip Posture (L) Externally Rotated,(R) Externally Rotated Knee Posture (L) Excess Flexion Ankle/Foot Posture (L) Forefoot Eversion,(R) Forefoot Eversion Palpation Assessment Location surgical scar Palpation Findings Soft Tissue Tightness Palpation Details poor scar mobility left and right Skin Assessment Edema Assessment left knee Edema Degree 2+ Incisional Assessment Incision Appearance/Comments well-healed, no signs or symptoms of infection PT-OP-K Range of Motion Start: 02/14/23 11:43 Freq: Status: Active Protocol: Document 03/03/23 10:20 NBM (Rec: 03/03/23 11:32 NBM [id number]) Knee Goniometric Range of Motion Knee Left Patient Position Supine Flexion Active (degrees) 85 Extension Active (degrees) 10 Extension Passive (degrees) 6 Comments Goniometry in supine dc'd d/t pt's complaint of L HS insertion pain in supine. Sitting AROM flexion 92 deg. PT-OP-M Strength Start: 02/14/23 11:43 Freq: Status: Active Protocol: Document 02/15/23 09:34 SAK (Rec: 02/15/23 14:59 SAK [id number]) Knee Strength Knee Manual Muscle Testing Left Flexion (S2) 3- Fair- Extension (L3) 3- Fair- Right Flexion (S2) 4 Good Extension (L3) 4 Good PT-OP-Q Treatments Start: 02/14/23 11:43 Freq: Status: Active Protocol: Document 03/03/23 10:20 NBM (Rec: 03/03/23 11:32 NBM [id number]) Cardio Equipment Recumbent Elliptical ([employer]) Duration (Minutes) 7 Resistance 1 Seat Position 6 Other pt able to complete revolution after 2 min Therapeutic Exercises Supine Exercises HS/Calf stretch Supine Exercise Name HEP review Equipment Used w/ strap Reps/Minutes 2x30s heel slides Supine Exercise Name for goniometry Side left Reps/Minutes x5 Comments vc for breath Sitting Exercises Sit to Stand Sitting Exercise Name HEP Side bilateral Equipment Used no UE support<>thigh support Reps/Minutes x10 Comments vc for controlled eccentric self STMs Sitting Exercise Name added: quad; discussed rolling pin ITB, calf and discussed ball roll glute Side left Equipment Used rolling pin Comments verbal review knee flexion stretch Sitting Exercise Name Fwd flexion HEP Side left Equipment Used mesh chair Reps/Minutes 5 x 5SH ea Comments knee flexion then stationary and scoot fwd in chair Standing Exercises Hip abduction Standing Exercise Name HEP Side bilateral Equipment Used handrail Reps/Minutes x10 ea Comments cues for eccentric control, upright posture Terminal Knee extension Standing Exercise Name TKE - HEP Side left Resistance Lvl 3 green Tb Equipment Used rail Reps/Minutes x10, 10 x5SH hurdles Standing Exercise Name in PT: fwd, lateral Resistance AROM step to assist increase AROM Equipment Used 1 RIVETER Reps/Minutes 4 hurdles x4 laps Comments cued knee flexion & DF knee to chest, lessened range LLE circumduct. L knee flexion/step Standing Exercise Name added to HEP Side left Resistance AAROM Equipment Used BHR support, RLE on 2nd step Reps/Minutes 10x 3 SH Manual Therapy Treatment Soft Tissue Mobilization scar Body Location L knee Mobilization Type Cross-Friction,Rolling Intensity/Depth Moderate Body Position Supine Self-Care/Home Management Treatment Education Patient Education Body Mechanics,Pain Management ,Posture Other Education Educated pt on supported sleeping positions to improve spinal and cervical alignment and reduce stress through L hip which is affecting pt's sleep. Trialed L sidelying w/ pillow supports between knees/ ankles and under L side with positive feedback response. Added to HEP: STS w/ no UE support, standing hip abduction, and TKE - Green Tb and HO given. PT-OP-R Modalities Start: 02/14/23 11:43 Freq: Status: Active Protocol: Document 03/03/23 10:20 NBM (Rec: 03/03/23 11:32 [facility] [id number]) Hot Pack/Cold Pack Treatment Cold Pack Location left knee Patient Position Hooklying Treatment Duration (minutes) 10 Patient Tolerance Good PT-OP-T Assessment and Plan Start: 02/14/23 11:43 Freq: Status: Active Protocol: Document 03/03/23 10:20 NBM (Rec: 03/03/23 11:32 [facility] [id number]) Physical Therapy Assessment Goals Three Impairment gait dysfunction Impairment antalgic gait on level surface , step-to pattern on stairs Hydrochloric Manufacturing Supervisor Goal (LTG) Patient will be able to ambulate on level surfaces without limp and on stairs with alternating pattern with min UE use. LTG Duration 04/17/23 Two Impairment weakness left knee Impairment 3-/5 Short Term Goal (STG) Patient to be instructed in individualized, progressive HEP for purposes of left knee strengthening, and functionally be able to move from sit to stand with min to no UE support STG Duration 03/17/23 Hydrochloric Manufacturing Supervisor Goal (LTG) Patient to demonstrate at least 4+/5 muscle strength left knee to allow her to return to PLF LTG Duration 04/17/23 One Impairment lacking full knee AROM Short Term Goal (STG) Improve left knee AROM to 5- 110 degrees 03/01/23: 8-94 deg PROM STG Duration 03/17/23 Senior Living Goal (LTG) Improve left knee AROM to 0- 120 degrees to allow her to return to all prior activities LTG Duration 04/17/23 Assessment Summary Assessment Pt presents with increased L knee swelling and stiffness and without AD. L knee stiffness improves throughout treatment session, especially after warmup and terminal knee extension ex. Reduced antalgic gait after TKE and pt 's report of pain and stiffness with STS improves after TKE. Educated pt on supported sleeping positions to improve spinal and cervical alignment and reduce stress through L hip which is affecting pt's sleep. Trialed L sidelying w/ pillow supports between knees/ankles and under L side with positive feedback response. Added to HEP: STS w/ no UE support, standing hip abduction, and TKE - Green Tb and HO given. Physical Therapy Plan Frequency and Duration Frequency of Treatment 2x/Week Duration of treatment (weeks) 8 Plan of Care Start Date 02/15/23 Plan of Care End Date 04/17/23 Therapeutic Interventions Therapeutic Interventions Gait Training,Home Exercise Program,Manual Therapy,Patient /Caregiver Education,Self-Care /Home Management,Soft Tissue Mobilization,Taping, Therapeutic Activities, Therapeutic Exercises Modalities Cold Pack/Ice Massage,Electric Stimulation,Hot Packs Next Visit Focus/Plan Next Note Type Treatment Note Next Visit Plan Discuss patient's appointment with ortho surgeon JOHANA 03/08. Start with ex bike, review HEP and progress ther ex focused on knee ROM, provide patellar mobilization and soft tissue mobilization of surgical scar. ENd with ice and elevation
--- NOTE | 2023-03-07 17:12 | PT.OTN ---
Current Diagnoses Unilateral primary osteoarthritis, left knee (03/07/23) Physical Therapy Treatment Note PT-OP-A Visit Information Start: 02/14/23 11:43 Freq: Status: Active Protocol: Document 03/07/23 14:12 [facility] (Rec: 03/07/23 15:08 [facility] [id number]) Out-Patient Physical Therapy Visit Information Visit Information Visit Type Treatment Note Visit Start Time 14:12 Visit Stop Time 15:02 Total Visit Minutes 50 Visit Number 6 Number of CUSTOMS INVESTIGATOR Visits 0 PT-OP-B Current Condition Start: 02/14/23 11:43 Freq: Status: Active Protocol: Document 02/15/23 09:34 SAK (Rec: 02/15/23 10:31 [facility] [id number]) Current Condition History of Current Condition Onset Date November 2022 Current Complaints limited function left knee History of Current Condition right TKA May 2022 (prior 3 surgeries right knee). Dr Zenaida Garcia, recovery hasn't gone well, right foot numb, still painful, has had manipulation, still limited bend of knee. Left TKA done by Dr. Dewey November 2022, had PT at another clinic because she said he worked her to the point of feeling she was going to throw up; stopped PT in December. Sees Dr. Dewey today, thinks he may recommend manipulation for left. Uses recumbant exercise bike Prior Treatments and Tests TKA in November 2022 (pt can't remember date.) Future Testing and Treatments Planned sees Dr. Dewey today Treatment Goals Patient/Caregiver Goals More stable on her feet, alternate feet on stairs, take walks, improve knee motion and strength Prior Functional Status Baseline Function- ADL's Modified Independent Baseline Function- Gait indep Baseline Function- Recreation/Hobbies able to take walks Current Functional Impairments (Reported) Functional Limitations- ADL's painful and limited Functional Limitations- Mobility/Gait unable to go for walks due to pain and limited motion, step- to pattern on stairs Functional Limitations- Recreation/ unable Hobbies PT-OP-C Subjective Start: 02/14/23 11:43 Freq: Status: Active Protocol: Document 03/07/23 14:12 SAK (Rec: 03/07/23 15:08 [facility] [id number]) OP-PT Subjective Patient Comments Patient Comments WEaring compression stocking, per patient seems to take the sharp stabbing pains away. Sees Dr. Jon 03/08/23. States she feels limited by left hip pain. Reports compliance to HEP. Not using cane. Feels stiff, c/o whole body like a brick. PT-OP-F Manual Assessment Start: 02/14/23 11:43 Freq: Status: Active Protocol: Document 02/15/23 09:34 [facility] (Rec: 02/15/23 14:59 [facility] [id number]) Manual Assessments Soft Tissue Assessment Soft Tissue Mobility Assessment decreased scar tissue mobility left knee Joint Mobility Assessment Joint Mobility Assessment dec patellar mobility left knee sup and inf PT-OP-G Mobility & Gait Start: 02/14/23 11:43 Freq: Status: Active Protocol: Document 02/15/23 09:34 [facility] (Rec: 02/15/23 14:59 [facility] [id number]) OP Mobility Evaluation Transfers Sit to Stand requires UE use OP Gait Assessment Gait Gait Assistance Required: Independent Distance (Feet) 50 Assistive Devices Assistive Device None Orthotic/Prosthetic Devices or Brace: No Gait Deviations General Gait Pattern Antalgic,Decreased Stride Length,Decreased Feet Clearance Factors Limiting Gait Function Factors Limiting Gait Function Decreased Strength,Limited Range of Motion,Pain Stair Climbing Evaluation Evaluation Level of Assist On Stairs Independent Devices Stair Climbing Assistive Devices Left Railing,Right Railing Technique/Endurance Stair Climbing Technique Step to Step PT-OP-J Posture/Palpation/Skin Start: 02/14/23 11:43 Freq: Status: Active Protocol: Document 02/15/23 09:34 [facility] (Rec: 02/15/23 10:31 [facility] [id number]) Posture Evaluation Position Standing Hip Posture (L) Externally Rotated,(R) Externally Rotated Knee Posture (L) Excess Flexion Ankle/Foot Posture (L) Forefoot Eversion,(R) Forefoot Eversion Palpation Assessment Location surgical scar Palpation Findings Soft Tissue Tightness Palpation Details poor scar mobility left and right Skin Assessment Edema Assessment left knee Edema Degree 2+ Incisional Assessment Incision Appearance/Comments well-healed, no signs or symptoms of infection PT-OP-K Range of Motion Start: 02/14/23 11:43 Freq: Status: Active Protocol: Document 03/03/23 10:20 NBM (Rec: 03/03/23 11:32 NBM [id number]) Knee Goniometric Range of Motion Knee Left Patient Position Supine Flexion Active (degrees) 85 Extension Active (degrees) 10 Extension Passive (degrees) 6 Comments Goniometry in supine dc'd d/t pt's complaint of L HS insertion pain in supine. Sitting AROM flexion 92 deg. PT-OP-M Strength Start: 02/14/23 11:43 Freq: Status: Active Protocol: Document 02/15/23 09:34 [facility] (Rec: 02/15/23 14:59 [facility] [id number]) Knee Strength Knee Manual Muscle Testing Left Flexion (S2) 3- Fair- Extension (L3) 3- Fair- Right Flexion (S2) 4 Good Extension (L3) 4 Good PT-OP-Q Treatments Start: 02/14/23 11:43 Freq: Status: Active Protocol: Document 03/07/23 14:12 [facility] (Rec: 03/07/23 15:08 [facility] [id number]) Cardio Equipment Bicycle (Upright) Duration (Minutes) 7 Resistance 1 Seat Position 5 Other unable to keep foot on pedal for full revolution Gym Equipment Shuttle Recovery Unilateral Squats Resistance 25 Shuttle Recovery Platform Stable Reps/Time 2x10 Bilateral Squats Details pain-free range Resistance 50# Shuttle Recovery Platform Stable Reps/Time 2x10 Therapeutic Exercises Supine Exercises gravity assisted knee flex Reps/Minutes 3x10 Comments pt holding behind thigh wall slides Side left Equipment Used slider sheet Reps/Minutes 5' Comments on shuttle leg press Prone Exercises knee extension hang Reps/Minutes 3 min Comments passive and with active quad engagement quad stretch Equipment Used strap Reps/Minutes 3x30 Comments pt focus on breathing with PT assisting for alignment and stretch Sitting Exercises knee flex/ext Sitting Exercise Name legs dangling Reps/Minutes 1 min Comments cued for relaxed movement ( sitting on the dock) Standing Exercises heel/toe raise Reps/Minutes 10x knee flex Reps/Minutes 10x Comments cues to lift foot toward bottom Terminal Knee extension Standing Exercise Name TKE - HEP Side left Resistance Lvl 3 green Tb Equipment Used rail Reps/Minutes x10, 10 x5SH L knee flexion/step Standing Exercise Name stair lunge Side left Resistance AAROM Equipment Used BHR support, RLE on 2nd step Reps/Minutes 5x10 sec hold Manual Therapy Treatment Joint Mobilizations tibfem Direction ant to post Grade II Comments post glide femur on tibia, towel roll under prox tibia to facil knee ext Other Other Manual Treatments contract/relax in sitting for inc knee flex; inc to 95 deg Self-Care/Home Management Treatment Education Other Education exercise throughout the day, use cane if limping. PT-OP-R Modalities Start: 02/14/23 11:43 Freq: Status: Active Protocol: Document 03/07/23 14:12 [facility] (Rec: 03/07/23 15:08 [facility] [id number]) Hot Pack/Cold Pack Treatment Cold Pack Comments pt refused, will do at home. PT-OP-T Assessment and Plan Start: 02/14/23 11:43 Freq: Status: Active Protocol: Document 03/07/23 14:12 [facility] (Rec: 03/07/23 15:08 [facility] [id number]) Physical Therapy Assessment Goals Three Impairment gait dysfunction Impairment antalgic gait on level surface , step-to pattern on stairs Custodial Goal (LTG) Patient will be able to ambulate on level surfaces without limp and on stairs with alternating pattern with min UE use. LTG Duration 04/17/23 Two Impairment weakness left knee Impairment 3-/5 Short Term Goal (STG) Patient to be instructed in individualized, progressive HEP for purposes of left knee strengthening, and functionally be able to move from sit to stand with min to no UE support STG Duration 03/17/23 Flask Handler Goal (LTG) Patient to demonstrate at least 4+/5 muscle strength left knee to allow her to return to PLF LTG Duration 04/17/23 One Impairment lacking full knee AROM Short Term Goal (STG) Improve left knee AROM to 5- 110 degrees 03/01/23: 8-94 deg PROM STG Duration 03/17/23 Custodial Goal (LTG) Improve left knee AROM to 0- 120 degrees to allow her to return to all prior activities LTG Duration 04/17/23 Progress Towards Goals Progress Towards Goals Slow Progress - Other Assessment Summary Assessment left knee: AROM: 8-88, PROM: 5 -95. Patient soft tissue tightness and compensatory movements impacting recovery. Improved knee flex with contract/relax, need to follow next time with hamstring curl with L1 TB. Patient gait improved with emphasis on heelstrike and use of mirror for visual feedback. Patient also reported less hip pain when corrected gait. ENcouraged in frerquent exercise throughout the day. Physical Therapy Plan Frequency and Duration Frequency of Treatment 2x/Week Duration of treatment (weeks) 8 Plan of Care Start Date 02/15/23 Plan of Care End Date 04/17/23 Therapeutic Interventions Therapeutic Interventions Gait Training,Home Exercise Program,Manual Therapy,Patient /Caregiver Education,Self-Care /Home Management,Soft Tissue Mobilization,Taping, Therapeutic Activities, Therapeutic Exercises Modalities Cold Pack/Ice Massage,Electric Stimulation,Hot Packs Next Visit Focus/Plan Next Note Type Treatment Note Next Visit Plan Discuss patient's appointment with ortho surgeon JOHANA 03/08. Start with ex bike, review HEP and progress ther ex focused on knee ROM, provide patellar mob, contract/relax technique, manual soft tissue mobilization of surgical scar. End with ice and elevation
--- NOTE | 2023-03-09 16:03 | PT.OTN ---
Current Diagnoses Unilateral primary osteoarthritis, left knee (03/09/23) Physical Therapy Treatment Note PT-OP-A Visit Information Start: 02/14/23 11:43 Freq: Status: Active Protocol: Document 03/09/23 15:59 ED (Rec: 03/09/23 16:03 ED [id number]) Out-Patient Physical Therapy Visit Information Visit Information Visit Type Treatment Note Visit Start Time 15:15 Visit Stop Time 16:00 Total Visit Minutes 45 Visit Number 7 Number of BI DATA MODELER Visits 0 PT-OP-B Current Condition Start: 02/14/23 11:43 Freq: Status: Active Protocol: Document 02/15/23 09:34 SAK (Rec: 02/15/23 10:31 SAK [id number]) Current Condition History of Current Condition Onset Date November 2022 Current Complaints limited function left knee History of Current Condition right TKA May 2022 (prior 3 surgeries right knee). Dr Zenaida Garcia, recovery hasn't gone well, right foot numb, still painful, has had manipulation, still limited bend of knee. Left TKA done by Dr. Dewey November 2022, had PT at another clinic because she said he worked her to the point of feeling she was going to throw up; stopped PT in December. Sees Dr. Dewey today, thinks he may recommend manipulation for left. Uses recumbant exercise bike Prior Treatments and Tests TKA in November 2022 (pt can't remember date.) Future Testing and Treatments Planned sees Dr. Dewey today Treatment Goals Patient/Caregiver Goals More stable on her feet, alternate feet on stairs, take walks, improve knee motion and strength Prior Functional Status Baseline Function- ADL's Modified Independent Baseline Function- Gait indep Baseline Function- Recreation/Hobbies able to take walks Current Functional Impairments (Reported) Functional Limitations- ADL's painful and limited Functional Limitations- Mobility/Gait unable to go for walks due to pain and limited motion, step- to pattern on stairs Functional Limitations- Recreation/ unable Hobbies PT-OP-C Subjective Start: 02/14/23 11:43 Freq: Status: Active Protocol: Document 03/09/23 15:59 ED (Rec: 03/09/23 16:03 ED [id number]) OP-PT Subjective Patient Comments Patient Comments Pt states that her L hip is holding her back a lot. States she does about 80-90 sit<> stands/day and uses her recumbent bike at home. PT-OP-F Manual Assessment Start: 02/14/23 11:43 Freq: Status: Active Protocol: Document 02/15/23 09:34 [facility] (Rec: 02/15/23 14:59 [facility] [id number]) Manual Assessments Soft Tissue Assessment Soft Tissue Mobility Assessment decreased scar tissue mobility left knee Joint Mobility Assessment Joint Mobility Assessment dec patellar mobility left knee sup and inf PT-OP-G Mobility & Gait Start: 02/14/23 11:43 Freq: Status: Active Protocol: Document 02/15/23 09:34 [facility] (Rec: 02/15/23 14:59 [facility] [id number]) OP Mobility Evaluation Transfers Sit to Stand requires UE use OP Gait Assessment Gait Gait Assistance Required: Independent Distance (Feet) 50 Assistive Devices Assistive Device None Orthotic/Prosthetic Devices or Brace: No Gait Deviations General Gait Pattern Antalgic,Decreased Stride Length,Decreased Feet Clearance Factors Limiting Gait Function Factors Limiting Gait Function Decreased Strength,Limited Range of Motion,Pain Stair Climbing Evaluation Evaluation Level of Assist On Stairs Independent Devices Stair Climbing Assistive Devices Left Railing,Right Railing Technique/Endurance Stair Climbing Technique Step to Step PT-OP-J Posture/Palpation/Skin Start: 02/14/23 11:43 Freq: Status: Active Protocol: Document 02/15/23 09:34 [facility] (Rec: 02/15/23 10:31 [facility] [id number]) Posture Evaluation Position Standing Hip Posture (L) Externally Rotated,(R) Externally Rotated Knee Posture (L) Excess Flexion Ankle/Foot Posture (L) Forefoot Eversion,(R) Forefoot Eversion Palpation Assessment Location surgical scar Palpation Findings Soft Tissue Tightness Palpation Details poor scar mobility left and right Skin Assessment Edema Assessment left knee Edema Degree 2+ Incisional Assessment Incision Appearance/Comments well-healed, no signs or symptoms of infection PT-OP-K Range of Motion Start: 02/14/23 11:43 Freq: Status: Active Protocol: Document 03/03/23 10:20 NBM (Rec: 03/03/23 11:32 NBM [id number]) Knee Goniometric Range of Motion Knee Left Patient Position Supine Flexion Active (degrees) 85 Extension Active (degrees) 10 Extension Passive (degrees) 6 Comments Goniometry in supine dc'd d/t pt's complaint of L HS insertion pain in supine. Sitting AROM flexion 92 deg. PT-OP-M Strength Start: 02/14/23 11:43 Freq: Status: Active Protocol: Document 02/15/23 09:34 [facility] (Rec: 02/15/23 14:59 [facility] [id number]) Knee Strength Knee Manual Muscle Testing Left Flexion (S2) 3- Fair- Extension (L3) 3- Fair- Right Flexion (S2) 4 Good Extension (L3) 4 Good PT-OP-Q Treatments Start: 02/14/23 11:43 Freq: Status: Active Protocol: Document 03/09/23 15:59 ED (Rec: 03/09/23 16:03 ED [id number]) Cardio Equipment Recumbent Elliptical ([employer]) Duration (Minutes) 7 Resistance 1 Seat Position 6 Other pt able to complete revolution after 2 min Therapeutic Exercises Supine Exercises Knee extension gravity stretch Reps/Minutes x5 minutes Prone Exercises knee extension hang Reps/Minutes 3 min Comments passive and with active quad engagement Sitting Exercises knee flex/ext Sitting Exercise Name legs dangling Reps/Minutes 1 min Comments cued for relaxed movement ( sitting on the dock) knee flexion stretch Sitting Exercise Name Fwd flexion HEP Side left Equipment Used mesh chair Reps/Minutes 5 x 5SH ea Comments knee flexion then stationary and scoot fwd in chair Standing Exercises calf stretch Reps/Minutes 2x30 seconds L knee flexion/step Standing Exercise Name stair lunge Side left Resistance AAROM Equipment Used BHR support, RLE on 2nd step Reps/Minutes 5x10 sec hold PT-OP-R Modalities Start: 02/14/23 11:43 Freq: Status: Active Protocol: Document 03/07/23 14:12 [facility] (Rec: 03/07/23 15:08 [facility] [id number]) Hot Pack/Cold Pack Treatment Cold Pack Comments pt refused, will do at home. PT-OP-T Assessment and Plan Start: 02/14/23 11:43 Freq: Status: Active Protocol: Document 03/09/23 15:59 ED (Rec: 03/09/23 16:03 ED [id number]) Physical Therapy Assessment Goals Three Impairment gait dysfunction Impairment antalgic gait on level surface , step-to pattern on stairs People Greeter Goal (LTG) Patient will be able to ambulate on level surfaces without limp and on stairs with alternating pattern with min UE use. LTG Duration 04/17/23 Two Impairment weakness left knee Impairment 3-/5 Short Term Goal (STG) Patient to be instructed in individualized, progressive HEP for purposes of left knee strengthening, and functionally be able to move from sit to stand with min to no UE support STG Duration 03/17/23 Longterm Goal (LTG) Patient to demonstrate at least 4+/5 muscle strength left knee to allow her to return to PLF LTG Duration 04/17/23 One Impairment lacking full knee AROM Short Term Goal (STG) Improve left knee AROM to 5- 110 degrees 03/01/23: 8-94 deg PROM STG Duration 03/17/23 People Greeter Goal (LTG) Improve left knee AROM to 0- 120 degrees to allow her to return to all prior activities LTG Duration 04/17/23 Assessment Summary Assessment Pt measured at ~85 degrees L knee flexion and lacking about 5-10 degrees of extension today. Pt limited througout session by L hip pain. Worked on various drills to improve knee ROM but she required intermittent rest breaks d/t L hip pain; she did not tolerated lying supine for very long. Pt had very firm end feel when at end range flexion. Physical Therapy Plan Frequency and Duration Frequency of Treatment 2x/Week Duration of treatment (weeks) 8 Plan of Care Start Date 02/15/23 Plan of Care End Date 04/17/23 Therapeutic Interventions Therapeutic Interventions Gait Training,Home Exercise Program,Manual Therapy,Patient /Caregiver Education,Self-Care /Home Management,Soft Tissue Mobilization,Taping, Therapeutic Activities, Therapeutic Exercises Modalities Cold Pack/Ice Massage,Electric Stimulation,Hot Packs Next Visit Focus/Plan Next Note Type Treatment Note Next Visit Plan Discuss patient's appointment with ortho surgeon JOHANA 03/08. Start with ex bike, review HEP and progress ther ex focused on knee ROM, provide patellar mob, contract/relax technique, manual soft tissue mobilization of surgical scar. End with ice and elevation
--- NOTE | 2023-03-10 16:37 | PT.OTN ---
Current Diagnoses Unilateral primary osteoarthritis, left knee (03/10/23) Physical Therapy Treatment Note PT-OP-A Visit Information Start: 02/14/23 11:43 Freq: Status: Active Protocol: Document 03/10/23 15:05 NBM (Rec: 03/10/23 16:36 NBM [id number]) Out-Patient Physical Therapy Visit Information Visit Information Visit Type Treatment Note Visit Start Time 15:05 Visit Stop Time 15:55 Total Visit Minutes 50 Visit Number 8 Number of CUSTOMER LEADER Visits 1 Evaluation Information Evaluation Date 02/15/23 PT-OP-B Current Condition Start: 02/14/23 11:43 Freq: Status: Active Protocol: Document 02/15/23 09:34 SAK (Rec: 02/15/23 10:31 SAK [id number]) Current Condition History of Current Condition Onset Date November 2022 Current Complaints limited function left knee History of Current Condition right TKA May 2022 (prior 3 surgeries right knee). Dr Zenaida Garcia, recovery hasn't gone well, right foot numb, still painful, has had manipulation, still limited bend of knee. Left TKA done by Dr. Dewey November 2022, had PT at another clinic because she said he worked her to the point of feeling she was going to throw up; stopped PT in December. Sees Dr. Dewey today, thinks he may recommend manipulation for left. Uses recumbant exercise bike Prior Treatments and Tests TKA in November 2022 (pt can't remember date.) Future Testing and Treatments Planned sees Dr. Dewey today Treatment Goals Patient/Caregiver Goals More stable on her feet, alternate feet on stairs, take walks, improve knee motion and strength Prior Functional Status Baseline Function- ADL's Modified Independent Baseline Function- Gait indep Baseline Function- Recreation/Hobbies able to take walks Current Functional Impairments (Reported) Functional Limitations- ADL's painful and limited Functional Limitations- Mobility/Gait unable to go for walks due to pain and limited motion, step- to pattern on stairs Functional Limitations- Recreation/ unable Hobbies PT-OP-C Subjective Start: 02/14/23 11:43 Freq: Status: Active Protocol: Document 03/10/23 15:05 NBM (Rec: 03/10/23 16:36 NBM [id number]) OP-PT Subjective Patient Comments Patient Comments Pt reports L hip x-ray impression is mild degenerative hip pain. Pt reports L hip has been 7/10 and has been way worse than the knee. It's really putting a stop into how I can do it. I've been trying to breathe through it. She didn't fall asleep until 5am so got up at noon - I just couldn't get comfortable. She didn't do her ex's yet today. She's been practicing 80 - 100 times sit to stand without using upper arms, and she sidesteps while cooking. PT-OP-F Manual Assessment Start: 02/14/23 11:43 Freq: Status: Active Protocol: Document 02/15/23 09:[address] [facility] (Rec: 02/15/23 14:[address] [facility] [id number]) Manual Assessments Soft Tissue Assessment Soft Tissue Mobility Assessment decreased scar tissue mobility left knee Joint Mobility Assessment Joint Mobility Assessment dec patellar mobility left knee sup and inf PT-OP-G Mobility & Gait Start: 02/14/23 11:43 Freq: Status: Active Protocol: Document 02/15/23 09:[address] [facility] (Rec: 02/15/23 14:[address] [facility] [id number]) OP Mobility Evaluation Transfers Sit to Stand requires UE use OP Gait Assessment Gait Gait Assistance Required: Independent Distance (Feet) 50 Assistive Devices Assistive Device None Orthotic/Prosthetic Devices or Brace: No Gait Deviations General Gait Pattern Antalgic,Decreased Stride Length,Decreased Feet Clearance Factors Limiting Gait Function Factors Limiting Gait Function Decreased Strength,Limited Range of Motion,Pain Stair Climbing Evaluation Evaluation Level of Assist On Stairs Independent Devices Stair Climbing Assistive Devices Left Railing,Right Railing Technique/Endurance Stair Climbing Technique Step to Step PT-OP-J Posture/Palpation/Skin Start: 02/14/23 11:43 Freq: Status: Active Protocol: Document 02/15/23 09:[address] [facility] (Rec: 02/15/23 10:[address] [facility] [id number]) Posture Evaluation Position Standing Hip Posture (L) Externally Rotated,(R) Externally Rotated Knee Posture (L) Excess Flexion Ankle/Foot Posture (L) Forefoot Eversion,(R) Forefoot Eversion Palpation Assessment Location surgical scar Palpation Findings Soft Tissue Tightness Palpation Details poor scar mobility left and right Skin Assessment Edema Assessment left knee Edema Degree 2+ Incisional Assessment Incision Appearance/Comments well-healed, no signs or symptoms of infection PT-OP-K Range of Motion Start: 02/14/23 11:43 Freq: Status: Active Protocol: Document 03/03/23 10:20 NBM (Rec: 03/03/23 11:32 NBM [id number]) Knee Goniometric Range of Motion Knee Left Patient Position Supine Flexion Active (degrees) 85 Extension Active (degrees) 10 Extension Passive (degrees) 6 Comments Goniometry in supine dc'd d/t pt's complaint of L HS insertion pain in supine. Sitting AROM flexion 92 deg. PT-OP-M Strength Start: 02/14/23 11:43 Freq: Status: Active Protocol: Document 02/15/23 09:34 SAK (Rec: 02/15/23 14:59 SAK [id number]) Knee Strength Knee Manual Muscle Testing Left Flexion (S2) 3- Fair- Extension (L3) 3- Fair- Right Flexion (S2) 4 Good Extension (L3) 4 Good PT-OP-Q Treatments Start: 02/14/23 11:43 Freq: Status: Active Protocol: Document 03/10/23 15:05 NBM (Rec: 03/10/23 16:36 NBM [id number]) Cardio Equipment Bicycle (Upright) Duration (Minutes) 10 Resistance 1 Seat Position 5 Other keeps foot on ped and full rev w L hip hip hike after 5'; vc for breathwork Therapeutic Exercises Prone Exercises knee extension hang Prone Exercise Name LEs off plinth just below knees Resistance 1# ankle weight LLE Reps/Minutes 5 min Comments passive and with active quad engagement quad stretch Prone Exercise Name Pt encouraged to complete at home Sitting Exercises knee flex/ext Sitting Exercise Name legs dangling Reps/Minutes 1 min Comments cued for relaxed movement ( sitting on the dock) knee flexion stretch Sitting Exercise Name Fwd flexion HEP Side left Equipment Used mesh chair Reps/Minutes 5 x 5SH ea Comments R foot over L ankle Gait Training Gait Activity SPC Description around clinic, with mirror, ascending/descending training stairs Device Used clinic SPC in RUE Level of Assistance SBA Surface carpet, stairs Treatment Focus Sequencing, upright posture, safety, stairs (recip up/down) , incr hip flex Comments Height adjusted to 33 Fwd ambulation: Mirror used for visual feedback of reduced antalgic gait with SPC, reduced muscle guarding, reduced pressure and pain in L hip. Stairs 6 ascending/descending focusing on recip w/ upright posture, increased hip flex, and reducing UE support upstairs from B INFECTIOUS DISEASE TECHNICIAN>no INFECTIOUS DISEASE TECHNICIAN up; downstairs from B INFECTIOUS DISEASE TECHNICIAN>no INFECTIOUS DISEASE TECHNICIAN> L INFECTIOUS DISEASE TECHNICIAN w/ R SPC (pt has one R INFECTIOUS DISEASE TECHNICIAN up two steps at home) 4 up recip without INFECTIOUS DISEASE TECHNICIAN, down recip w/ SPC x3 (pt self- corrects sequencing x1) PT-OP-R Modalities Start: 02/14/23 11:43 Freq: Status: Active Protocol: Document 03/07/23 14:12 SAK (Rec: 03/07/23 15:08 SAK [id number]) Hot Pack/Cold Pack Treatment Cold Pack Comments pt refused, will do at home. PT-OP-T Assessment and Plan Start: 02/14/23 11:43 Freq: Status: Active Protocol: Document 03/10/23 15:05 NBM (Rec: 03/10/23 16:36 NBM [id number]) Physical Therapy Assessment Goals Three Impairment gait dysfunction Impairment antalgic gait on level surface , step-to pattern on stairs Senior Care Goal (LTG) Patient will be able to ambulate on level surfaces without limp and on stairs with alternating pattern with min UE use. 03/10: See Gait Training w/ SPC for progress on level surface and stairs LTG Duration 04/17/23 Two Impairment weakness left knee Impairment 3-/5 Short Term Goal (STG) Patient to be instructed in individualized, progressive HEP for purposes of left knee strengthening, and functionally be able to move from sit to stand with min to no UE support 03/10: Pt reports 80-100 STS without UE support/day (4-5 sets x20) STG Duration 03/17/23 Tube Balancer Goal (LTG) Patient to demonstrate at least 4+/5 muscle strength left knee to allow her to return to PLF LTG Duration 04/17/23 One Impairment lacking full knee AROM Short Term Goal (STG) Improve left knee AROM to 5- 110 degrees 03/01/23: 8-94 deg PROM 03/10: Pt completes full revolutions bwd/fwd on upright bicycle seat level 5. STG Duration 03/17/23 Tube Balancer Goal (LTG) Improve left knee AROM to 0- 120 degrees to allow her to return to all prior activities LTG Duration 04/17/23 Progress Towards Goals Progress Towards Goals Progressing Toward Goals Progress Comments Three: See Gait Training w/ SPC for progress on level surface and stairs Two: Pt reports 80-100 STS without UE support/day (4-5 sets x20) One: Pt completes full revolutions bwd/fwd on upright bicycle seat level 5. Assessment Summary Assessment Antonette demonstrates continued progress towards all three goals this session. Three: She demonstrates improved antalgic gait with use of SPC in RUE w/ cues for sequencing, upright posture, and stride length on level surface. She initially uses step-to pattern descending stairs but w/ cueing progresses to reciprocal pattern with no UE needing cues for upright posture, or recip using L INFECTIOUS DISEASE TECHNICIAN and R SPC w/ occ cue for sequencing on 6 step; pt self -corrects sequencing w/ R SPC no INFECTIOUS DISEASE TECHNICIAN descending 4 steps. She ascends recip initially 2HHA but progresses to no INFECTIOUS DISEASE TECHNICIAN w/ cues. Two: Pt reports 80- 100 STS w/o UE support each day (4-5 sets x20). One: Pt completes full revolutions bwd /fwd for the first time on upright bicycle seat level 5 today. She tolerates prone passive LLE knee extension w/ 1# ankle weight with lower leg off plinth below knees 3 minutes. She declines ice today and is encouraged to stretch L quads at home. Physical Therapy Plan Frequency and Duration Frequency of Treatment 2x/Week Duration of treatment (weeks) 8 Plan of Care Start Date 02/15/23 Plan of Care End Date 04/17/23 Therapeutic Interventions Therapeutic Interventions Gait Training,Home Exercise Program,Manual Therapy,Patient /Caregiver Education,Self-Care /Home Management,Soft Tissue Mobilization,Taping, Therapeutic Activities, Therapeutic Exercises Modalities Cold Pack/Ice Massage,Electric Stimulation,Hot Packs Next Visit Focus/Plan Next Note Type Treatment Note Next Visit Plan Continue gait training: pt to bring SPC - adj height to 33. Discuss patient's appointment with ortho surgeon JOHANA 03/08. Start with upright ex bike, review HEP and progress ther ex focused on knee ROM, provide patellar mob, contract /relax technique, manual soft tissue mobilization of surgical scar. End with ice and elevation
--- NOTE | 2023-03-13 10:24 | PT.OTN ---
Current Diagnoses Unilateral primary osteoarthritis, left knee (03/13/23) Physical Therapy Treatment Note PT-OP-A Visit Information Start: 02/14/23 11:43 Freq: Status: Active Protocol: Document 03/13/23 09:33 SAK (Rec: 03/13/23 10:24 [facility] [id number]) Out-Patient Physical Therapy Visit Information Visit Information Visit Type Treatment Note Visit Start Time 09:33 Visit Stop Time 10:28 Total Visit Minutes 55 Visit Number 9 Number of [employer] Visits 0 Evaluation Information Evaluation Date 02/15/23 PT-OP-B Current Condition Start: 02/14/23 11:43 Freq: Status: Active Protocol: Document 02/15/23 09:34 SAK (Rec: 02/15/23 10:31 SAK [id number]) Current Condition History of Current Condition Onset Date November 2022 Current Complaints limited function left knee History of Current Condition right TKA May 2022 (prior 3 surgeries right knee). Dr Zenaida Garcia, recovery hasn't gone well, right foot numb, still painful, has had manipulation, still limited bend of knee. Left TKA done by Dr. Dewey November 2022, had PT at another clinic because she said he worked her to the point of feeling she was going to throw up; stopped PT in December. Sees Dr. Dewey today, thinks he may recommend manipulation for left. Uses recumbant exercise bike Prior Treatments and Tests TKA in November 2022 (pt can't remember date.) Future Testing and Treatments Planned sees Dr. Dewey today Treatment Goals Patient/Caregiver Goals More stable on her feet, alternate feet on stairs, take walks, improve knee motion and strength Prior Functional Status Baseline Function- ADL's Modified Independent Baseline Function- Gait indep Baseline Function- Recreation/Hobbies able to take walks Current Functional Impairments (Reported) Functional Limitations- ADL's painful and limited Functional Limitations- Mobility/Gait unable to go for walks due to pain and limited motion, step- to pattern on stairs Functional Limitations- Recreation/ unable Hobbies PT-OP-C Subjective Start: 02/14/23 11:43 Freq: Status: Active Protocol: Document 03/13/23 09:33 SAK (Rec: 03/13/23 10:24 [facility] [id number]) OP-PT Subjective Patient Comments Patient Comments States saw PA, needs to continue with PT. Compliant to HEP PT-OP-F Manual Assessment Start: 02/14/23 11:43 Freq: Status: Active Protocol: Document 02/15/23 09:34 [facility] (Rec: 02/15/23 14:59 [facility] [id number]) Manual Assessments Soft Tissue Assessment Soft Tissue Mobility Assessment decreased scar tissue mobility left knee Joint Mobility Assessment Joint Mobility Assessment dec patellar mobility left knee sup and inf PT-OP-G Mobility & Gait Start: 02/14/23 11:43 Freq: Status: Active Protocol: Document 02/15/23 09:34 [facility] (Rec: 02/15/23 14:59 [facility] [id number]) OP Mobility Evaluation Transfers Sit to Stand requires UE use OP Gait Assessment Gait Gait Assistance Required: Independent Distance (Feet) 50 Assistive Devices Assistive Device None Orthotic/Prosthetic Devices or Brace: No Gait Deviations General Gait Pattern Antalgic,Decreased Stride Length,Decreased Feet Clearance Factors Limiting Gait Function Factors Limiting Gait Function Decreased Strength,Limited Range of Motion,Pain Stair Climbing Evaluation Evaluation Level of Assist On Stairs Independent Devices Stair Climbing Assistive Devices Left Railing,Right Railing Technique/Endurance Stair Climbing Technique Step to Step PT-OP-J Posture/Palpation/Skin Start: 02/14/23 11:43 Freq: Status: Active Protocol: Document 02/15/23 09:34 [facility] (Rec: 02/15/23 10:31 [facility] [id number]) Posture Evaluation Position Standing Hip Posture (L) Externally Rotated,(R) Externally Rotated Knee Posture (L) Excess Flexion Ankle/Foot Posture (L) Forefoot Eversion,(R) Forefoot Eversion Palpation Assessment Location surgical scar Palpation Findings Soft Tissue Tightness Palpation Details poor scar mobility left and right Skin Assessment Edema Assessment left knee Edema Degree 2+ Incisional Assessment Incision Appearance/Comments well-healed, no signs or symptoms of infection PT-OP-K Range of Motion Start: 02/14/23 11:43 Freq: Status: Active Protocol: Document 03/03/23 10:20 NBM (Rec: 03/03/23 11:32 NBM [id number]) Knee Goniometric Range of Motion Knee Left Patient Position Supine Flexion Active (degrees) 85 Extension Active (degrees) 10 Extension Passive (degrees) 6 Comments Goniometry in supine dc'd d/t pt's complaint of L HS insertion pain in supine. Sitting AROM flexion 92 deg. PT-OP-M Strength Start: 02/14/23 11:43 Freq: Status: Active Protocol: Document 02/15/23 09:34 [facility] (Rec: 02/15/23 14:59 [facility] [id number]) Knee Strength Knee Manual Muscle Testing Left Flexion (S2) 3- Fair- Extension (L3) 3- Fair- Right Flexion (S2) 4 Good Extension (L3) 4 Good PT-OP-Q Treatments Start: 02/14/23 11:43 Freq: Status: Active Protocol: Document 03/13/23 09:33 [facility] (Rec: 03/13/23 10:24 [facility] [id number]) Cardio Equipment Bicycle (Upright) Duration (Minutes) 10 Resistance 1 Seat Position 5 Other keeps foot on ped and full rev w L hip hip hike after 5'; vc for breathwork Gym Equipment Shuttle Recovery Unilateral Squats Resistance 25 Shuttle Recovery Platform Stable Reps/Time 2x10 Bilateral Squats Details pain-free range Resistance 50# Shuttle Recovery Platform Stable Reps/Time 2x10 Therapeutic Exercises Supine Exercises gravity assisted knee flex Reps/Minutes 3x10 Comments pt holding behind thigh Prone Exercises knee extension hang Prone Exercise Name LEs off plinth just below knees Resistance 1# ankle weight LLE Reps/Minutes 5 min Comments passive and with active quad engagement quad stretch Prone Exercise Name Pt encouraged to complete at home Sitting Exercises knee flex/ext Sitting Exercise Name legs dangling Reps/Minutes 1 min Comments cued for relaxed movement ( sitting on the dock) knee flexion stretch Sitting Exercise Name Fwd flexion HEP Side left Equipment Used mesh chair Reps/Minutes 5 x 5SH ea Comments R foot over L ankle Standing Exercises quad stretch Equipment Used chair Reps/Minutes 2x30 calf stretch Equipment Used ELHAM Reps/Minutes 2x30 seconds Terminal Knee extension Standing Exercise Name TKE - HEP Side left Resistance Lvl 2green Tb Equipment Used rail Reps/Minutes 10 x5SH L knee flexion/step Standing Exercise Name stair lunge Side left Resistance AAROM Equipment Used BHR support, RLE on 2nd step Reps/Minutes 5x10 sec hold Gait Training Gait Activity hurdles Distance/Duration 6 hurdles x 4 Comments cues for straight up and over without compensating SPC Description around clinic, with mirror, ascending/descending training stairs Device Used clinic SPC in RUE Level of Assistance SBA Surface carpet, stairs Treatment Focus Sequencing, upright posture, safety, stairs (recip up/down) , incr hip flex Comments Height adjusted to 33 Fwd ambulation: Mirror used for visual feedback of reduced antalgic gait with SPC, reduced muscle guarding, reduced pressure and pain in L hip. Stairs 6 ascending/descending focusing on recip w/ upright posture, increased hip flex, and reducing UE support upstairs from B DIRECTOR OF KNOWLEDGE MANAGEMENT>no DIRECTOR OF KNOWLEDGE MANAGEMENT up; downstairs from B DIRECTOR OF KNOWLEDGE MANAGEMENT>no DIRECTOR OF KNOWLEDGE MANAGEMENT> L DIRECTOR OF KNOWLEDGE MANAGEMENT w/ R SPC (pt has one R DIRECTOR OF KNOWLEDGE MANAGEMENT up two steps at home) 4 up recip without DIRECTOR OF KNOWLEDGE MANAGEMENT, down recip w/ SPC x3 (pt self- corrects sequencing x1) gait in mirror Device Used 0 Level of Assistance S Distance/Duration 20 ft x4 laps Treatment Focus LLE TKE/heel toe/DF w/ IV, trunk centering Comments Improved L knee flexion and DF for heel toe foot clearance with reps. Manual Therapy Treatment Joint Mobilizations tibfem Direction ant to post Grade II Comments post glide femur on tibia, towel roll under prox tibia to facil knee ext Self-Care/Home Management Treatment Education Other Education importance of not compensating with sit to stand, gait, bike . Importance of neutral alignment, likely contribution to left hip pain with compensatory movements. PT-OP-R Modalities Start: 02/14/23 11:43 Freq: Status: Active Protocol: Document 03/13/23 09:33 [facility] (Rec: 03/13/23 10:24 [facility] [id number]) Hot Pack/Cold Pack Treatment Cold Pack Location left knee and hip Treatment Duration (minutes) 10 Patient Tolerance Good PT-OP-T Assessment and Plan Start: 02/14/23 11:43 Freq: Status: Active Protocol: Document 03/13/23 09:33 [facility] (Rec: 03/13/23 10:24 [facility] [id number]) Physical Therapy Assessment Goals Three Impairment gait dysfunction Impairment antalgic gait on level surface , step-to pattern on stairs Detention Goal (LTG) Patient will be able to ambulate on level surfaces without limp and on stairs with alternating pattern with min UE use. 03/10: See Gait Training w/ SPC for progress on level surface and stairs LTG Duration 04/17/23 Two Impairment weakness left knee Impairment 3-/5 Short Term Goal (STG) Patient to be instructed in individualized, progressive HEP for purposes of left knee strengthening, and functionally be able to move from sit to stand with min to no UE support 03/10: Pt reports 80-100 STS without UE support/day (4-5 sets x20) STG Duration 03/17/23 [employer] Assessment Goal (LTG) Patient to demonstrate at least 4+/5 muscle strength left knee to allow her to return to PLF LTG Duration 04/17/23 One Impairment lacking full knee AROM Short Term Goal (STG) Improve left knee AROM to 5- 110 degrees 03/01/23: 8-94 deg PROM 03/10: Pt completes full revolutions bwd/fwd on upright bicycle seat level 5. STG Duration 03/17/23 [employer] Assessment Goal (LTG) Improve left knee AROM to 0- 120 degrees to allow her to return to all prior activities LTG Duration 04/17/23 Progress Towards Goals Progress Towards Goals Progressing Toward Goals Assessment Summary Assessment Started session with sit to stand practice/education on neutral alignment, likely effect of compensatory movements on left hip pain. Able to achieve full revolution on upright bike eventually on seat height 5. No hip pain until last 10 min of session, think possibily due to heavy emphasis on non compensation. Ice to left knee and hip to end session. Improved tolerance for ROM today. Physical Therapy Plan Frequency and Duration Frequency of Treatment 2x/Week Duration of treatment (weeks) 8 Plan of Care Start Date 02/15/23 Plan of Care End Date 04/17/23 Therapeutic Interventions Therapeutic Interventions Gait Training,Home Exercise Program,Manual Therapy,Patient /Caregiver Education,Self-Care /Home Management,Soft Tissue Mobilization,Taping, Therapeutic Activities, Therapeutic Exercises Modalities Cold Pack/Ice Massage,Electric Stimulation,Hot Packs Next Visit Focus/Plan Next Note Type Treatment Note Next Visit Plan Decrease bike seat height, continue ther ex for knee ROM, emphasis neutral alignment, dec compensation with all ther ex.
--- NOTE | 2023-03-15 16:04 | PT.OTN ---
Current Diagnoses Unilateral primary osteoarthritis, left knee (03/15/23) Physical Therapy Treatment Note PT-OP-A Visit Information Start: 02/14/23 11:43 Freq: Status: Active Protocol: Document 03/15/23 15:03 SAK (Rec: 03/15/23 16:[address] [facility] [id number]) Out-Patient Physical Therapy Visit Information Visit Information Visit Type Treatment Note Visit Start Time 15:00 Visit Stop Time 15:50 Total Visit Minutes 50 Visit Number 10 Number of [employer] Visits 0 Evaluation Information Evaluation Date 02/15/23 PT-OP-B Current Condition Start: 02/14/23 11:43 Freq: Status: Active Protocol: Document 02/15/23 09:34 SAK (Rec: 02/15/23 10:31 SAK [id number]) Current Condition History of Current Condition Onset Date November 2022 Current Complaints limited function left knee History of Current Condition right TKA May 2022 (prior 3 surgeries right knee). Dr Zenaida Garcia, recovery hasn't gone well, right foot numb, still painful, has had manipulation, still limited bend of knee. Left TKA done by Dr. Dewey November 2022, had PT at another clinic because she said he worked her to the point of feeling she was going to throw up; stopped PT in December. Sees Dr. Dewey today, thinks he may recommend manipulation for left. Uses recumbant exercise bike Prior Treatments and Tests TKA in November 2022 (pt can't remember date.) Future Testing and Treatments Planned sees Dr. Dewey today Treatment Goals Patient/Caregiver Goals More stable on her feet, alternate feet on stairs, take walks, improve knee motion and strength Prior Functional Status Baseline Function- ADL's Modified Independent Baseline Function- Gait indep Baseline Function- Recreation/Hobbies able to take walks Current Functional Impairments (Reported) Functional Limitations- ADL's painful and limited Functional Limitations- Mobility/Gait unable to go for walks due to pain and limited motion, step- to pattern on stairs Functional Limitations- Recreation/ unable Hobbies PT-OP-C Subjective Start: 02/14/23 11:43 Freq: Status: Active Protocol: Document 03/15/23 15:03 SAK (Rec: 03/15/23 16:04 SAK [id number]) OP-PT Subjective Patient Comments Patient Comments Feels left painful, realizes how much work she still needs to do in both directions PT-OP-F Manual Assessment Start: 02/14/23 11:43 Freq: Status: Active Protocol: Document 02/15/23 09:[address] [facility] (Rec: 02/15/23 14:[address] [facility] [id number]) Manual Assessments Soft Tissue Assessment Soft Tissue Mobility Assessment decreased scar tissue mobility left knee Joint Mobility Assessment Joint Mobility Assessment dec patellar mobility left knee sup and inf PT-OP-G Mobility & Gait Start: 02/14/23 11:43 Freq: Status: Active Protocol: Document 02/15/23 09:[address] [facility] (Rec: 02/15/23 14:[address] [facility] [id number]) OP Mobility Evaluation Transfers Sit to Stand requires UE use OP Gait Assessment Gait Gait Assistance Required: Independent Distance (Feet) 50 Assistive Devices Assistive Device None Orthotic/Prosthetic Devices or Brace: No Gait Deviations General Gait Pattern Antalgic,Decreased Stride Length,Decreased Feet Clearance Factors Limiting Gait Function Factors Limiting Gait Function Decreased Strength,Limited Range of Motion,Pain Stair Climbing Evaluation Evaluation Level of Assist On Stairs Independent Devices Stair Climbing Assistive Devices Left Railing,Right Railing Technique/Endurance Stair Climbing Technique Step to Step PT-OP-J Posture/Palpation/Skin Start: 02/14/23 11:43 Freq: Status: Active Protocol: Document 02/15/23 09:[address] [facility] (Rec: 02/15/23 10:[address] [facility] [id number]) Posture Evaluation Position Standing Hip Posture (L) Externally Rotated,(R) Externally Rotated Knee Posture (L) Excess Flexion Ankle/Foot Posture (L) Forefoot Eversion,(R) Forefoot Eversion Palpation Assessment Location surgical scar Palpation Findings Soft Tissue Tightness Palpation Details poor scar mobility left and right Skin Assessment Edema Assessment left knee Edema Degree 2+ Incisional Assessment Incision Appearance/Comments well-healed, no signs or symptoms of infection PT-OP-K Range of Motion Start: 02/14/23 11:43 Freq: Status: Active Protocol: Document 03/03/23 10:20 NBM (Rec: 03/03/23 11:32 NBM [id number]) Knee Goniometric Range of Motion Knee Left Patient Position Supine Flexion Active (degrees) 85 Extension Active (degrees) 10 Extension Passive (degrees) 6 Comments Goniometry in supine dc'd d/t pt's complaint of L HS insertion pain in supine. Sitting AROM flexion 92 deg. PT-OP-M Strength Start: 02/14/23 11:43 Freq: Status: Active Protocol: Document 02/15/23 09:[address] [facility] (Rec: 02/15/23 14:[address] [facility] [id number]) Knee Strength Knee Manual Muscle Testing Left Flexion (S2) 3- Fair- Extension (L3) 3- Fair- Right Flexion (S2) 4 Good Extension (L3) 4 Good PT-OP-Q Treatments Start: 02/14/23 11:43 Freq: Status: Active Protocol: Document 03/15/23 15:[address] [facility] (Rec: 03/15/23 16:[address] [facility] [id number]) Cardio Equipment Bicycle (Upright) Duration (Minutes) 10 Resistance 1 Seat Position 5 Other full revolution after only a couple minutes Gym Equipment Cable Column (Body Solid) hamstring curl' Details lenny Resistance 30 Reps/Time 10 x 2 Shuttle Recovery Unilateral Squats Resistance 37 Shuttle Recovery Platform Stable Reps/Time 2x10 Bilateral Squats Details pain-free range Resistance 62# Shuttle Recovery Platform Stable Reps/Time 2x10 Therapeutic Exercises Supine Exercises SAQ Reps/Minutes 10x gravity assisted knee flex Reps/Minutes 3x10 Comments pt holding behind thigh Prone Exercises knee extension hang Prone Exercise Name LEs off plinth just below knees Resistance 1# ankle weight LLE Reps/Minutes 5 min Comments passive and with active quad engagement Standing Exercises quad stretch Equipment Used chair Reps/Minutes 2x30 calf stretch Equipment Used ELHAM Reps/Minutes 2x30 seconds Terminal Knee extension Standing Exercise Name TKE - HEP Side left Resistance Lvl 2green Tb Equipment Used rail Reps/Minutes 10 x5SH L knee flexion/step Standing Exercise Name stair lunge Side left Resistance AAROM Equipment Used BHR support, RLE on 2nd step Reps/Minutes 5x10 sec hold Gait Training Gait Activity SPC Description around clinic, with mirror, ascending/descending training stairs Device Used clinic SPC in RUE Level of Assistance SBA Surface carpet, stairs Treatment Focus Sequencing, upright posture, safety, stairs (recip up/down) , incr hip flex Comments Fwd ambulation: Mirror used for visual feedback of reduced antalgic gait with SPC, reduced muscle guarding, reduced pressure and pain in L hip. Stairs 6 ascending/descending focusing on recip w/ upright posture, increased hip flex, and reducing UE support upstairs from B UNIFIED COMMUNICATIONS ARCHITECT>no UNIFIED COMMUNICATIONS ARCHITECT up; downstairs from B UNIFIED COMMUNICATIONS ARCHITECT>no UNIFIED COMMUNICATIONS ARCHITECT> L UNIFIED COMMUNICATIONS ARCHITECT w/ R SPC (pt has one R UNIFIED COMMUNICATIONS ARCHITECT up two steps at home) 4 up recip without UNIFIED COMMUNICATIONS ARCHITECT, down recip w/ SPC x3 (pt self- corrects sequencing x1) Manual Therapy Treatment Soft Tissue Mobilization scar Body Location L knee Mobilization Type Instrument Assisted,Myofascial Release Intensity/Depth Moderate Body Position Supine Comments small and medium suction tools Joint Mobilizations L patella mob Direction sup,inf, med,lat Grade II Body Position Supine Reps/Duration 2 min tibfem Direction ant to post Grade II Body Position Supine Reps/Duration 2 min Comments post glide femur on tibia, towel roll under prox tibia to facil knee ext Self-Care/Home Management Treatment Education Other Education encouraged use of Vitamin E oil on scar, inc self-massage PT-OP-R Modalities Start: 02/14/23 11:43 Freq: Status: Active Protocol: Document 03/15/23 15:[address] [facility] (Rec: 03/15/23 16:[address] [facility] [id number]) Hot Pack/Cold Pack Treatment Cold Pack Comments pt to ice at home PT-OP-T Assessment and Plan Start: 02/14/23 11:43 Freq: Status: Active Protocol: Document 03/15/23 15:[address] [facility] (Rec: 03/15/23 16:[address] [facility] [id number]) Physical Therapy Assessment Goals Three Impairment gait dysfunction Impairment antalgic gait on level surface , step-to pattern on stairs Gluer Goal (LTG) Patient will be able to ambulate on level surfaces without limp and on stairs with alternating pattern with min UE use. 03/10: See Gait Training w/ SPC for progress on level surface and stairs LTG Duration 04/17/23 Two Impairment weakness left knee Impairment 3-/5 Short Term Goal (STG) Patient to be instructed in individualized, progressive HEP for purposes of left knee strengthening, and functionally be able to move from sit to stand with min to no UE support 03/10: Pt reports 80-100 STS without UE support/day (4-5 sets x20) STG Duration 03/17/23 Alf Goal (LTG) Patient to demonstrate at least 4+/5 muscle strength left knee to allow her to return to PLF LTG Duration 04/17/23 One Impairment lacking full knee AROM Short Term Goal (STG) Improve left knee AROM to 5- 110 degrees 03/01/23: 8-94 deg PROM 03/10: Pt completes full revolutions bwd/fwd on upright bicycle seat level 5. STG Duration 03/17/23 Gluer Goal (LTG) Improve left knee AROM to 0- 120 degrees to allow her to return to all prior activities LTG Duration 04/17/23 Progress Towards Goals Progress Towards Goals Progressing Toward Goals Assessment Summary Assessment AROM left knee 7-, PROM -97 , steady progress. Patient reporting decreased hip pain with emphasis on dec compensation and limp, though reported inc pain left hip during shuttle leg press. Able to do full revolution on ex bike much sooner, dec limp with gait. Pt to ice at home today per her requrest. Physical Therapy Plan Frequency and Duration Frequency of Treatment 2x/Week Duration of treatment (weeks) 8 Plan of Care Start Date 02/15/23 Plan of Care End Date 04/17/23 Therapeutic Interventions Therapeutic Interventions Gait Training,Home Exercise Program,Manual Therapy,Patient /Caregiver Education,Self-Care /Home Management,Soft Tissue Mobilization,Taping, Therapeutic Activities, Therapeutic Exercises Modalities Cold Pack/Ice Massage,Electric Stimulation,Hot Packs Next Visit Focus/Plan Next Note Type Treatment Note Next Visit Plan Decrease bike seat height, continue ther ex for knee ROM, emphasis neutral alignment, dec compensation with all ther ex. Cont use of suction tools for scar mob and perform patellar mobs.
--- NOTE | 2023-03-17 15:13 | PT.OTN ---
Current Diagnoses Unilateral primary osteoarthritis, left knee (03/17/23) Physical Therapy Treatment Note PT-OP-A Visit Information Start: 02/14/23 11:43 Freq: Status: Active Protocol: Document 03/17/23 13:47 NBM (Rec: 03/17/23 15:02 NBM [id number]) Out-Patient Physical Therapy Visit Information Visit Information Visit Type Treatment Note Visit Start Time 14:10 Visit Stop Time 15:02 Total Visit Minutes 52 Visit Number 11 Number of ELEPHANT KEEPER Visits 1 Evaluation Information Evaluation Date 02/15/23 PT-OP-B Current Condition Start: 02/14/23 11:43 Freq: Status: Active Protocol: Document 02/15/23 09:34 SAK (Rec: 02/15/23 10:31 SAK [id number]) Current Condition History of Current Condition Onset Date November 2022 Current Complaints limited function left knee History of Current Condition right TKA May 2022 (prior 3 surgeries right knee). Dr Zenaida Garcia, recovery hasn't gone well, right foot numb, still painful, has had manipulation, still limited bend of knee. Left TKA done by Dr. Dewey November 2022, had PT at another clinic because she said he worked her to the point of feeling she was going to throw up; stopped PT in December. Sees Dr. Dewey today, thinks he may recommend manipulation for left. Uses recumbant exercise bike Prior Treatments and Tests TKA in November 2022 (pt can't remember date.) Future Testing and Treatments Planned sees Dr. Dewey today Treatment Goals Patient/Caregiver Goals More stable on her feet, alternate feet on stairs, take walks, improve knee motion and strength Prior Functional Status Baseline Function- ADL's Modified Independent Baseline Function- Gait indep Baseline Function- Recreation/Hobbies able to take walks Current Functional Impairments (Reported) Functional Limitations- ADL's painful and limited Functional Limitations- Mobility/Gait unable to go for walks due to pain and limited motion, step- to pattern on stairs Functional Limitations- Recreation/ unable Hobbies PT-OP-C Subjective Start: 02/14/23 11:43 Freq: Status: Active Protocol: Document 03/17/23 13:47 NBM (Rec: 03/17/23 15:02 NBM [id number]) OP-PT Subjective Patient Comments Patient Comments Antonette reports 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 Her L knee is sore today. She did her ex's yesterday - she notices her L heel is much higher in the air than the R. The cupping seems to have helped and it wasn't as irritated. It can get prickly and burning and it wasn't like that at all. PT-OP-F Manual Assessment Start: 02/14/23 11:43 Freq: Status: Active Protocol: Document 02/15/23 09:34 [facility] (Rec: 02/15/23 14:59 [facility] [id number]) Manual Assessments Soft Tissue Assessment Soft Tissue Mobility Assessment decreased scar tissue mobility left knee Joint Mobility Assessment Joint Mobility Assessment dec patellar mobility left knee sup and inf PT-OP-G Mobility & Gait Start: 02/14/23 11:43 Freq: Status: Active Protocol: Document 02/15/23 09:34 [facility] (Rec: 02/15/23 14:59 [facility] [id number]) OP Mobility Evaluation Transfers Sit to Stand requires UE use OP Gait Assessment Gait Gait Assistance Required: Independent Distance (Feet) 50 Assistive Devices Assistive Device None Orthotic/Prosthetic Devices or Brace: No Gait Deviations General Gait Pattern Antalgic,Decreased Stride Length,Decreased Feet Clearance Factors Limiting Gait Function Factors Limiting Gait Function Decreased Strength,Limited Range of Motion,Pain Stair Climbing Evaluation Evaluation Level of Assist On Stairs Independent Devices Stair Climbing Assistive Devices Left Railing,Right Railing Technique/Endurance Stair Climbing Technique Step to Step PT-OP-J Posture/Palpation/Skin Start: 02/14/23 11:43 Freq: Status: Active Protocol: Document 02/15/23 09:34 [facility] (Rec: 02/15/23 10:31 [facility] [id number]) Posture Evaluation Position Standing Hip Posture (L) Externally Rotated,(R) Externally Rotated Knee Posture (L) Excess Flexion Ankle/Foot Posture (L) Forefoot Eversion,(R) Forefoot Eversion Palpation Assessment Location surgical scar Palpation Findings Soft Tissue Tightness Palpation Details poor scar mobility left and right Skin Assessment Edema Assessment left knee Edema Degree 2+ Incisional Assessment Incision Appearance/Comments well-healed, no signs or symptoms of infection PT-OP-K Range of Motion Start: 02/14/23 11:43 Freq: Status: Active Protocol: Document 03/17/23 13:47 NBM (Rec: 03/17/23 15:02 NB [id number]) Knee Goniometric Range of Motion Knee Left Flexion Active (degrees) 90 Extension Active (degrees) 6 Extension Passive (degrees) 6 PT-OP-M Strength Start: 02/14/23 11:43 Freq: Status: Active Protocol: Document 02/15/23 09:34 SAK (Rec: 02/15/23 14:59 SAK [id number]) Knee Strength Knee Manual Muscle Testing Left Flexion (S2) 3- Fair- Extension (L3) 3- Fair- Right Flexion (S2) 4 Good Extension (L3) 4 Good PT-OP-Q Treatments Start: 02/14/23 11:43 Freq: Status: Active Protocol: Document 03/17/23 13:47 NBM (Rec: 03/17/23 15:02 NBM [id number]) Cardio Equipment Bicycle (Upright) Duration (Minutes) 10 Resistance 1 Seat Position 4 Other full revolution after only a couple min, breathwork Gym Equipment Shuttle Recovery Unilateral Squats Resistance 37 Shuttle Recovery Platform Stable Reps/Time x15 ea Bilateral Squats Details pain-free range Resistance 62# Shuttle Recovery Platform Stable Reps/Time x15 Therapeutic Exercises Supine Exercises SAQ Reps/Minutes 10x gravity assisted knee flex Reps/Minutes 3x10 Comments pt holding behind thigh (ankle pumps in between) HS/Calf stretch Side bilateral Equipment Used on Shuttle Recovery Reps/Minutes x30s ea Comments w/ ankle pumps, positive feedback response Standing Exercises quad stretch Equipment Used chair in front of training stairs for UE support Reps/Minutes 2x30 calf stretch Equipment Used ELHAM Reps/Minutes 2x30 seconds L knee flexion/step Standing Exercise Name stair lunge Side left Resistance AAROM Equipment Used BHR support, RLE on 2nd step Reps/Minutes 5x10 sec hold Comments cues for hold not bounce Manual Therapy Treatment Soft Tissue Mobilization L knee Body Location L quads Mobilization Type Rolling Intensity/Depth Moderate Body Position Sitting scar Body Location L knee Mobilization Type Cross-Friction,Instrument Assisted,Myofascial Release Intensity/Depth Moderate Body Position Supine Comments small>medium suction tools tenderness medial to distal scar reported. PT-OP-R Modalities Start: 02/14/23 11:43 Freq: Status: Active Protocol: Document 03/15/23 15:03 SAK (Rec: 03/15/23 16:04 SAK [id number]) Hot Pack/Cold Pack Treatment Cold Pack Comments pt to ice at home PT-OP-T Assessment and Plan Start: 02/14/23 11:43 Freq: Status: Active Protocol: Document 03/17/23 13:47 NB (Rec: 03/17/23 15:02 [facility] [id number]) Physical Therapy Assessment Goals Three Impairment gait dysfunction Impairment antalgic gait on level surface , step-to pattern on stairs Prison Goal (LTG) Patient will be able to ambulate on level surfaces without limp and on stairs with alternating pattern with min UE use. 03/10: See Gait Training w/ SPC for progress on level surface and stairs LTG Duration 04/17/23 Two Impairment weakness left knee Impairment 3-/5 Short Term Goal (STG) Patient to be instructed in individualized, progressive HEP for purposes of left knee strengthening, and functionally be able to move from sit to stand with min to no UE support 03/10: Pt reports 80-100 STS without UE support/day (4-5 sets x20) STG Duration 03/17/23 Textile Supervisor Goal (LTG) Patient to demonstrate at least 4+/5 muscle strength left knee to allow her to return to PLF LTG Duration 04/17/23 One Impairment lacking full knee AROM Short Term Goal (STG) Improve left knee AROM to 5- 110 degrees 03/01/23: 8-94 deg PROM 03/10: Pt completes full revolutions bwd/fwd on upright bicycle seat level 5. STG Duration 03/17/23 Textile Supervisor Goal (LTG) Improve left knee AROM to 0- 120 degrees to allow her to return to all prior activities LTG Duration 04/17/23 Assessment Summary Assessment Antonette presents with antalgic gait using SPC and reports increased soreness in L knee after extended standing yesterday. AROM Left knee 6-90 , PROM 6 deg extension, flexion not taken due to pt complaint of increased L knee soreness today. Antonette performs full revolutions w/ L hip hike fwd/bwd on upright bike after 8 min at lowered seat level 4. Pt demonstrates L knee extension in standing w/ excessive hip external rotation and is encouraged to work towards neutral foot positioning. Physical Therapy Plan Frequency and Duration Frequency of Treatment 2x/Week Duration of treatment (weeks) 8 Plan of Care Start Date 02/15/23 Plan of Care End Date 04/17/23 Therapeutic Interventions Therapeutic Interventions Gait Training,Home Exercise Program,Manual Therapy,Patient /Caregiver Education,Self-Care /Home Management,Soft Tissue Mobilization,Taping, Therapeutic Activities, Therapeutic Exercises Modalities Cold Pack/Ice Massage,Electric Stimulation,Hot Packs Next Visit Focus/Plan Next Note Type Treatment Note Next Visit Plan Decrease bike seat height, continue ther ex for knee ROM, emphasis neutral alignment, dec compensation with all ther ex. Cont use of suction tools for scar mob and perform patellar mobs.
--- NOTE | 2023-03-20 14:26 | PT.OTN ---
Current Diagnoses Unilateral primary osteoarthritis, left knee (03/20/23) Physical Therapy Treatment Note PT-OP-A Visit Information Start: 02/14/23 11:43 Freq: Status: Active Protocol: Document 03/20/23 12:28 SAK (Rec: 03/20/23 13:19 [facility] [id number]) Out-Patient Physical Therapy Visit Information Visit Information Visit Type Treatment Note Visit Start Time 12:28 Visit Stop Time 13:15 Total Visit Minutes 47 Visit Number 12 Number of FOREST FIRE SPECIALIST SUPERVISOR Visits 0 Evaluation Information Evaluation Date 02/15/23 PT-OP-B Current Condition Start: 02/14/23 11:43 Freq: Status: Active Protocol: Document 02/15/23 09:34 SAK (Rec: 02/15/23 10:31 SAK [id number]) Current Condition History of Current Condition Onset Date November 2022 Current Complaints limited function left knee History of Current Condition right TKA May 2022 (prior 3 surgeries right knee). Dr Zenaida Garcia, recovery hasn't gone well, right foot numb, still painful, has had manipulation, still limited bend of knee. Left TKA done by Dr. Dewey November 2022, had PT at another clinic because she said he worked her to the point of feeling she was going to throw up; stopped PT in December. Sees Dr. Dewey today, thinks he may recommend manipulation for left. Uses recumbant exercise bike Prior Treatments and Tests TKA in November 2022 (pt can't remember date.) Future Testing and Treatments Planned sees Dr. Dewey today Treatment Goals Patient/Caregiver Goals More stable on her feet, alternate feet on stairs, take walks, improve knee motion and strength Prior Functional Status Baseline Function- ADL's Modified Independent Baseline Function- Gait indep Baseline Function- Recreation/Hobbies able to take walks Current Functional Impairments (Reported) Functional Limitations- ADL's painful and limited Functional Limitations- Mobility/Gait unable to go for walks due to pain and limited motion, step- to pattern on stairs Functional Limitations- Recreation/ unable Hobbies PT-OP-C Subjective Start: 02/14/23 11:43 Freq: Status: Active Protocol: Document 03/20/23 12:28 SAK (Rec: 03/20/23 13:19 [facility] [id number]) OP-PT Subjective Patient Comments Patient Comments No new c/o, reports she is going to start going to the gym 2x/day for using the bicycle because she feels like she gets her best motion. Trying to cut down on pain medications PT-OP-F Manual Assessment Start: 02/14/23 11:43 Freq: Status: Active Protocol: Document 02/15/23 09:34 [facility] (Rec: 02/15/23 14:59 [facility] [id number]) Manual Assessments Soft Tissue Assessment Soft Tissue Mobility Assessment decreased scar tissue mobility left knee Joint Mobility Assessment Joint Mobility Assessment dec patellar mobility left knee sup and inf PT-OP-G Mobility & Gait Start: 02/14/23 11:43 Freq: Status: Active Protocol: Document 02/15/23 09:34 [facility] (Rec: 02/15/23 14:59 [facility] [id number]) OP Mobility Evaluation Transfers Sit to Stand requires UE use OP Gait Assessment Gait Gait Assistance Required: Independent Distance (Feet) 50 Assistive Devices Assistive Device None Orthotic/Prosthetic Devices or Brace: No Gait Deviations General Gait Pattern Antalgic,Decreased Stride Length,Decreased Feet Clearance Factors Limiting Gait Function Factors Limiting Gait Function Decreased Strength,Limited Range of Motion,Pain Stair Climbing Evaluation Evaluation Level of Assist On Stairs Independent Devices Stair Climbing Assistive Devices Left Railing,Right Railing Technique/Endurance Stair Climbing Technique Step to Step PT-OP-J Posture/Palpation/Skin Start: 02/14/23 11:43 Freq: Status: Active Protocol: Document 02/15/23 09:34 [facility] (Rec: 02/15/23 10:31 [facility] [id number]) Posture Evaluation Position Standing Hip Posture (L) Externally Rotated,(R) Externally Rotated Knee Posture (L) Excess Flexion Ankle/Foot Posture (L) Forefoot Eversion,(R) Forefoot Eversion Palpation Assessment Location surgical scar Palpation Findings Soft Tissue Tightness Palpation Details poor scar mobility left and right Skin Assessment Edema Assessment left knee Edema Degree 2+ Incisional Assessment Incision Appearance/Comments well-healed, no signs or symptoms of infection PT-OP-K Range of Motion Start: 02/14/23 11:43 Freq: Status: Active Protocol: Document 03/17/23 13:47 NBM (Rec: 03/17/23 15:02 NBM [id number]) Knee Goniometric Range of Motion Knee Left Flexion Active (degrees) 90 Extension Active (degrees) 6 Extension Passive (degrees) 6 PT-OP-M Strength Start: 02/14/23 11:43 Freq: Status: Active Protocol: Document 02/15/23 09:34 [facility] (Rec: 02/15/23 14:59 [facility] [id number]) Knee Strength Knee Manual Muscle Testing Left Flexion (S2) 3- Fair- Extension (L3) 3- Fair- Right Flexion (S2) 4 Good Extension (L3) 4 Good PT-OP-Q Treatments Start: 02/14/23 11:43 Freq: Status: Active Protocol: Document 03/20/23 12:28 [facility] (Rec: 03/20/23 13:19 [facility] [id number]) Cardio Equipment Bicycle (Upright) Duration (Minutes) 10 Resistance 1 Seat Position 5-4 Other full revolution after only a couple min, breathwork Gym Equipment Shuttle Recovery Unilateral Squats Resistance 37 Shuttle Recovery Platform Stable Reps/Time x15 ea Bilateral Squats Details pain-free range Resistance 62# Shuttle Recovery Platform Stable Reps/Time x15 Shuttle Balance chains red Details bal and wt shift fwd/bck, side Therapeutic Exercises Supine Exercises gravity assisted knee flex Reps/Minutes 3x10 Comments pt holding behind thigh (ankle pumps in between) heel slides Supine Exercise Name gravity assisted knee flex Side left Reps/Minutes x5 Comments on shuttle leg press Sitting Exercises contract/relax Sitting Exercise Name to inc knee flex Reps/Minutes 3 reps x 2 Comments instructed in doing self with use of opposite LE. LAQ Reps/Minutes 5x5 Comments manual assist end range knee flex/ext Sitting Exercise Name legs dangling Reps/Minutes 1 min Comments cued for relaxed movement ( sitting on the dock) self STMs Sitting Exercise Name quad and IT band Side left Equipment Used rolling pin Comments verbal review Standing Exercises quad stretch Equipment Used chair in front of training stairs for UE support Reps/Minutes 2x30 calf stretch Equipment Used ELHAM Reps/Minutes 2x30 seconds L knee flexion/step Standing Exercise Name stair lunge Side left Resistance AAROM Equipment Used BHR support, RLE on 2nd step Reps/Minutes 5x10 sec hold Comments cues for hold not bounce Gait Training Gait Activity stairs Description asc fwd, asc bckward, descend fwd each time Device Used lenny railings Level of Assistance SBA, cues Surface 4, 6 Treatment Focus left leg loading and muscle activation, knee ext gait in mirror Device Used 0 Level of Assistance S Distance/Duration 20 ft x4 laps Treatment Focus LLE TKE/heel toe/DF w/ IV, trunk centering Comments Improved L knee flexion and DF for heel toe foot clearance with reps. Manual Therapy Treatment Soft Tissue Mobilization L knee Body Location L quads Mobilization Type Rolling Intensity/Depth Moderate Body Position Sitting scar Body Location L knee Mobilization Type Cross-Friction,Instrument Assisted,Myofascial Release Intensity/Depth Moderate Body Position Supine Comments small>medium suction tools tenderness medial to distal scar reported. Joint Mobilizations L patella mob Direction sup,inf, med,lat Grade II Body Position Supine Reps/Duration 2 min PT-OP-R Modalities Start: 02/14/23 11:43 Freq: Status: Active Protocol: Document 03/15/23 15:03 [facility] (Rec: 03/15/23 16:04 [facility] [id number]) Hot Pack/Cold Pack Treatment Cold Pack Comments pt to ice at home PT-OP-T Assessment and Plan Start: 02/14/23 11:43 Freq: Status: Active Protocol: Document 03/20/23 12:28 [facility] (Rec: 03/20/23 13:19 [facility] [id number]) Physical Therapy Assessment Goals Three Impairment gait dysfunction Impairment antalgic gait on level surface , step-to pattern on stairs Cement Storage Worker Goal (LTG) Patient will be able to ambulate on level surfaces without limp and on stairs with alternating pattern with min UE use. 03/10: See Gait Training w/ SPC for progress on level surface and stairs LTG Duration 04/17/23 Two Impairment weakness left knee Impairment 3-/5 Short Term Goal (STG) Patient to be instructed in individualized, progressive HEP for purposes of left knee strengthening, and functionally be able to move from sit to stand with min to no UE support 03/10: Pt reports 80-100 STS without UE support/day (4-5 sets x20) STG Duration 03/17/23 Cement Storage Worker Goal (LTG) Patient to demonstrate at least 4+/5 muscle strength left knee to allow her to return to PLF LTG Duration 04/17/23 One Impairment lacking full knee AROM Short Term Goal (STG) Improve left knee AROM to 5- 110 degrees 03/01/23: 8-94 deg PROM 03/10: Pt completes full revolutions bwd/fwd on upright bicycle seat level 5. STG Duration 03/17/23 Nursing Home Goal (LTG) Improve left knee AROM to 0- 120 degrees to allow her to return to all prior activities LTG Duration 04/17/23 Progress Towards Goals Progress Towards Goals Progressing Toward Goals Assessment Summary Assessment AROM 5-91, PROM 3-99. Improved gait with use of mirror for visual feedback. Trial retro stairs with good tolerance. Steady progress Physical Therapy Plan Frequency and Duration Frequency of Treatment 2x/Week Duration of treatment (weeks) 8 Plan of Care Start Date 02/15/23 Plan of Care End Date 04/17/23 Therapeutic Interventions Therapeutic Interventions Gait Training,Home Exercise Program,Manual Therapy,Patient /Caregiver Education,Self-Care /Home Management,Soft Tissue Mobilization,Taping, Therapeutic Activities, Therapeutic Exercises Modalities Cold Pack/Ice Massage,Electric Stimulation,Hot Packs Next Visit Focus/Plan Next Note Type Treatment Note Next Visit Plan Decrease bike seat height, continue ther ex for knee ROM, emphasis neutral alignment, dec compensation with all ther ex. Cont use of suction tools for scar mob and perform patellar mobs. Stool scoot for HS activation and ROM.
--- NOTE | 2023-03-22 16:24 | PT.OTN ---
Current Diagnoses Unilateral primary osteoarthritis, left knee (03/22/23) Physical Therapy Treatment Note PT-OP-A Visit Information Start: 02/14/23 11:43 Freq: Status: Active Protocol: Document 03/22/23 13:19 SAK (Rec: 03/22/23 14:04 [facility] [id number]) Out-Patient Physical Therapy Visit Information Visit Information Visit Type Treatment Note Visit Start Time 13:15 Visit Stop Time 14:02 Total Visit Minutes 47 Visit Number 13 Number of LINE INSTALLER REPAIRER Visits 0 Evaluation Information Evaluation Date 02/15/23 PT-OP-B Current Condition Start: 02/14/23 11:43 Freq: Status: Active Protocol: Document 03/22/23 13:19 SAK (Rec: 03/22/23 14:04 [facility] [id number]) Current Condition History of Current Condition Onset Date November 2022 Current Complaints limited function left knee History of Current Condition right TKA May 2022 (prior 3 surgeries right knee). Dr Zenaida Garcia, recovery hasn't gone well, right foot numb, still painful, has had manipulation, still limited bend of knee. Left TKA done by Dr. Dewey November 2022, had PT at another clinic because she said he worked her to the point of feeling she was going to throw up; stopped PT in December. Sees Dr. Dewey today, thinks he may recommend manipulation for left. Uses recumbant exercise bike Prior Treatments and Tests TKA in November 2022 (pt can't remember date.) Future Testing and Treatments Planned sees Dr. Dewey today PT-OP-C Subjective Start: 02/14/23 11:43 Freq: Status: Active Protocol: Document 03/22/23 13:19 [facility] (Rec: 03/22/23 14:04 [facility] [id number]) OP-PT Subjective Patient Comments Patient Comments No new c/o, working hard at her exercises, moving her knee throughout the day. [place] the stairs for a few min. PT-OP-F Manual Assessment Start: 02/14/23 11:43 Freq: Status: Active Protocol: Document 02/15/23 09:34 SAK (Rec: 02/15/23 14:59 [facility] [id number]) Manual Assessments Soft Tissue Assessment Soft Tissue Mobility Assessment decreased scar tissue mobility left knee Joint Mobility Assessment Joint Mobility Assessment dec patellar mobility left knee sup and inf PT-OP-G Mobility & Gait Start: 02/14/23 11:43 Freq: Status: Active Protocol: Document 02/15/23 09:34 [facility] (Rec: 02/15/23 14:59 [facility] [id number]) OP Mobility Evaluation Transfers Sit to Stand requires UE use OP Gait Assessment Gait Gait Assistance Required: Independent Distance (Feet) 50 Assistive Devices Assistive Device None Orthotic/Prosthetic Devices or Brace: No Gait Deviations General Gait Pattern Antalgic,Decreased Stride Length,Decreased Feet Clearance Factors Limiting Gait Function Factors Limiting Gait Function Decreased Strength,Limited Range of Motion,Pain Stair Climbing Evaluation Evaluation Level of Assist On Stairs Independent Devices Stair Climbing Assistive Devices Left Railing,Right Railing Technique/Endurance Stair Climbing Technique Step to Step PT-OP-J Posture/Palpation/Skin Start: 02/14/23 11:43 Freq: Status: Active Protocol: Document 02/15/23 09:34 [facility] (Rec: 02/15/23 10:31 [facility] [id number]) Posture Evaluation Position Standing Hip Posture (L) Externally Rotated,(R) Externally Rotated Knee Posture (L) Excess Flexion Ankle/Foot Posture (L) Forefoot Eversion,(R) Forefoot Eversion Palpation Assessment Location surgical scar Palpation Findings Soft Tissue Tightness Palpation Details poor scar mobility left and right Skin Assessment Edema Assessment left knee Edema Degree 2+ Incisional Assessment Incision Appearance/Comments well-healed, no signs or symptoms of infection PT-OP-K Range of Motion Start: 02/14/23 11:43 Freq: Status: Active Protocol: Document 03/17/23 13:47 NBM (Rec: 03/17/23 15:02 [facility] [id number]) Knee Goniometric Range of Motion Knee Left Flexion Active (degrees) 90 Extension Active (degrees) 6 Extension Passive (degrees) 6 PT-OP-M Strength Start: 02/14/23 11:43 Freq: Status: Active Protocol: Document 02/15/23 09:34 [facility] (Rec: 02/15/23 14:59 [facility] [id number]) Knee Strength Knee Manual Muscle Testing Left Flexion (S2) 3- Fair- Extension (L3) 3- Fair- Right Flexion (S2) 4 Good Extension (L3) 4 Good PT-OP-Q Treatments Start: 02/14/23 11:43 Freq: Status: Active Protocol: Document 03/22/23 13:19 [facility] (Rec: 03/22/23 14:04 [facility] [id number]) Cardio Equipment Bicycle (Upright) Duration (Minutes) 10 Resistance 1 Seat Position 4>3 Other full revolution after only a couple min, breathwork Gym Equipment Cable Column (Body Solid) hamstring curl' Details lenny, f/b stretch into ext on machine Resistance 30 Reps/Time 10 x 2 Shuttle Recovery Unilateral Squats Resistance 37 Shuttle Recovery Platform Stable Reps/Time x15 ea Bilateral Squats Details pain-free range Resistance 62# Shuttle Recovery Platform Stable Reps/Time x15 Therapeutic Exercises Supine Exercises gravity assisted knee flex Equipment Used 2# weight Reps/Minutes 3x10 Comments pt holding behind thigh, cues for deep breathing HS/Calf stretch Side bilateral Equipment Used on Shuttle Recovery Reps/Minutes x30s ea Comments w/ ankle pumps, positive feedback response Sitting Exercises contract/relax Sitting Exercise Name to inc knee flex Reps/Minutes 3 reps x 2 Comments instructed in doing self with use of opposite LE. LAQ Reps/Minutes 5x5 Comments manual assist end range knee flex/ext Sitting Exercise Name legs dangling Reps/Minutes 1 min Comments cued for relaxed movement ( sitting on the dock) self STMs Sitting Exercise Name quad and IT band Side left Equipment Used rolling pin Comments review Standing Exercises quad stretch Equipment Used chair in front of training stairs for UE support Reps/Minutes 2x30 calf stretch Equipment Used ELHAM Reps/Minutes 2x30 seconds L knee flexion/step Standing Exercise Name stair lunge Side left Resistance AAROM Equipment Used BHR support, RLE on 2nd step Reps/Minutes 5x10 sec hold Comments cues for hold not bounce Gait Training Gait Activity gait in mirror Device Used 0 Level of Assistance SBA, cues Distance/Duration 20 ft x4 laps Treatment Focus LLE TKE/heel toe/DF w/ IV, trunk centering Comments Improved heelstrike and wt shift with cues Manual Therapy Treatment Soft Tissue Mobilization L knee Body Location L quads Mobilization Type Rolling Intensity/Depth Moderate Body Position Sitting scar Body Location L knee Mobilization Type Cross-Friction,Instrument Assisted,Myofascial Release Intensity/Depth Moderate Body Position Supine Comments medium suction tool tenderness medial to distal scar reported. Joint Mobilizations L patella mob Direction sup,inf, med,lat Grade II Body Position Supine Reps/Duration 2 min tibfem Comments post glide to facil knee flex next session PT-OP-R Modalities Start: 02/14/23 11:43 Freq: Status: Active Protocol: Document 03/15/23 15:03 [facility] (Rec: 03/15/23 16:04 [facility] [id number]) Hot Pack/Cold Pack Treatment Cold Pack Comments pt to ice at home PT-OP-T Assessment and Plan Start: 02/14/23 11:43 Freq: Status: Active Protocol: Document 03/22/23 13:19 [facility] (Rec: 03/22/23 14:04 [facility] [id number]) Physical Therapy Assessment Goals Three Impairment gait dysfunction Impairment antalgic gait on level surface , step-to pattern on stairs [facility] Goal (LTG) Patient will be able to ambulate on level surfaces without limp and on stairs with alternating pattern with min UE use. 03/10: See Gait Training w/ SPC for progress on level surface and stairs LTG Duration 04/17/23 Two Impairment weakness left knee Impairment 3-/5 Short Term Goal (STG) Patient to be instructed in individualized, progressive HEP for purposes of left knee strengthening, and functionally be able to move from sit to stand with min to no UE support 03/10: Pt reports 80-100 STS without UE support/day (4-5 sets x20) STG Duration 03/17/23 Software Test Specialist Goal (LTG) Patient to demonstrate at least 4+/5 muscle strength left knee to allow her to return to PLF LTG Duration 04/17/23 One Impairment lacking full knee AROM Short Term Goal (STG) Improve left knee AROM to 5- 110 degrees 03/01/23: 8-94 deg PROM 03/10: Pt completes full revolutions bwd/fwd on upright bicycle seat level 5. STG Duration 03/17/23 Software Test Specialist Goal (LTG) Improve left knee AROM to 0- 120 degrees to allow her to return to all prior activities LTG Duration 04/17/23 Assessment Summary Assessment AROM 5-91, PROM 3-97, more stiff today, but able to correct gait with visual and verbal cues. Feel patient would benefit from inc emphasis on manual techniques next session for joint mob and inc soft tissue mobility Physical Therapy Plan Frequency and Duration Frequency of Treatment 2x/Week Duration of treatment (weeks) 8 Plan of Care Start Date 02/15/23 Plan of Care End Date 04/17/23 Therapeutic Interventions Therapeutic Interventions Gait Training,Home Exercise Program,Manual Therapy,Patient /Caregiver Education,Self-Care /Home Management,Soft Tissue Mobilization,Taping, Therapeutic Activities, Therapeutic Exercises Modalities Cold Pack/Ice Massage,Electric Stimulation,Hot Packs Next Visit Focus/Plan Next Note Type Treatment Note Next Visit Plan Continue ther ex for knee ROM, emphasis neutral alignment, dec compensation with all ther ex. Cont use of suction tools for scar mob and perform patellar mobs. Stool scoot for HS activation and ROM. Joint mob tib fib post glide and patellar mobs
--- NOTE | 2023-03-27 16:29 | PT.OTN ---
Current Diagnoses Unilateral primary osteoarthritis, left knee (03/27/23) Physical Therapy Treatment Note PT-OP-A Visit Information Start: 02/14/23 11:43 Freq: Status: Active Protocol: Document 03/27/23 11:17 SAK (Rec: 03/27/23 12:05 [facility] [id number]) Out-Patient Physical Therapy Visit Information Visit Information Visit Type Treatment Note Visit Note pt 10 min late. Visit Start Time 11:25 Visit Stop Time 12:04 Total Visit Minutes 39 Visit Number 14 Number of CABIN CLEANING SUPERVISOR Visits 0 Evaluation Information Evaluation Date 02/15/23 PT-OP-B Current Condition Start: 02/14/23 11:43 Freq: Status: Active Protocol: Document 03/27/23 11:17 SAK (Rec: 03/27/23 12:05 [facility] [id number]) Current Condition History of Current Condition Onset Date November 2022 Current Complaints limited function left knee History of Current Condition right TKA May 2022 (prior 3 surgeries right knee). Dr Zenaida Garcia, recovery hasn't gone well, right foot numb, still painful, has had manipulation, still limited bend of knee. Left TKA done by Dr. Dewey November 2022, had PT at another clinic because she said he worked her to the point of feeling she was going to throw up; stopped PT in December. Sees Dr. Dewey today, thinks he may recommend manipulation for left. Uses recumbant exercise bike Prior Treatments and Tests TKA in November 2022 (pt can't remember date.) Future Testing and Treatments Planned sees Dr. Dewey today PT-OP-C Subjective Start: 02/14/23 11:43 Freq: Status: Active Protocol: Document 03/27/23 11:17 SAK (Rec: 03/27/23 12:05 [facility] [id number]) OP-PT Subjective Patient Comments Patient Comments Stiff and sore, spent weekend with a friend who's father . Didn't do much exercise . Hasn't worn compression stocking much. Got a tilt board online for use at home. PT-OP-F Manual Assessment Start: 02/14/23 11:43 Freq: Status: Active Protocol: Document 02/15/23 09:34 SAK (Rec: 02/15/23 14:59 SAK [id number]) Manual Assessments Soft Tissue Assessment Soft Tissue Mobility Assessment decreased scar tissue mobility left knee Joint Mobility Assessment Joint Mobility Assessment dec patellar mobility left knee sup and inf PT-OP-G Mobility & Gait Start: 02/14/23 11:43 Freq: Status: Active Protocol: Document 02/15/23 09:34 [facility] (Rec: 02/15/23 14:59 [facility] [id number]) OP Mobility Evaluation Transfers Sit to Stand requires UE use OP Gait Assessment Gait Gait Assistance Required: Independent Distance (Feet) 50 Assistive Devices Assistive Device None Orthotic/Prosthetic Devices or Brace: No Gait Deviations General Gait Pattern Antalgic,Decreased Stride Length,Decreased Feet Clearance Factors Limiting Gait Function Factors Limiting Gait Function Decreased Strength,Limited Range of Motion,Pain Stair Climbing Evaluation Evaluation Level of Assist On Stairs Independent Devices Stair Climbing Assistive Devices Left Railing,Right Railing Technique/Endurance Stair Climbing Technique Step to Step PT-OP-J Posture/Palpation/Skin Start: 02/14/23 11:43 Freq: Status: Active Protocol: Document 02/15/23 09:34 [facility] (Rec: 02/15/23 10:31 [facility] [id number]) Posture Evaluation Position Standing Hip Posture (L) Externally Rotated,(R) Externally Rotated Knee Posture (L) Excess Flexion Ankle/Foot Posture (L) Forefoot Eversion,(R) Forefoot Eversion Palpation Assessment Location surgical scar Palpation Findings Soft Tissue Tightness Palpation Details poor scar mobility left and right Skin Assessment Edema Assessment left knee Edema Degree 2+ Incisional Assessment Incision Appearance/Comments well-healed, no signs or symptoms of infection PT-OP-K Range of Motion Start: 02/14/23 11:43 Freq: Status: Active Protocol: Document 03/17/23 13:47 NB (Rec: 03/17/23 15:02 [facility] [id number]) Knee Goniometric Range of Motion Knee Left Flexion Active (degrees) 90 Extension Active (degrees) 6 Extension Passive (degrees) 6 PT-OP-M Strength Start: 02/14/23 11:43 Freq: Status: Active Protocol: Document 02/15/23 09:34 [facility] (Rec: 02/15/23 14:59 [facility] [id number]) Knee Strength Knee Manual Muscle Testing Left Flexion (S2) 3- Fair- Extension (L3) 3- Fair- Right Flexion (S2) 4 Good Extension (L3) 4 Good PT-OP-Q Treatments Start: 02/14/23 11:43 Freq: Status: Active Protocol: Document 03/27/23 11:17 [facility] (Rec: 03/27/23 12:05 [facility] [id number]) Cardio Equipment Bicycle (Upright) Duration (Minutes) 10 Resistance 1 Seat Position 4>3 Other more difficulty achieving full revolution Gym Equipment Cable Column (Body Solid) hamstring curl' Details lenny, f/b stretch into ext on machine Resistance 30 Reps/Time 10 x 2 Therapeutic Exercises Sitting Exercises stool scoot Sitting Exercise Name lenny and alternating Side bilateral Reps/Minutes 3 min contract/relax Sitting Exercise Name to inc knee flex Reps/Minutes 3 reps x 3 Manual Therapy Treatment Soft Tissue Mobilization L knee Body Location L quads Mobilization Type Myofascial Release,Rolling, Strumming Intensity/Depth Moderate Body Position Supine scar Body Location L knee Mobilization Type Instrument Assisted,Myofascial Release,Rolling Intensity/Depth Moderate Body Position Supine Comments medium suction tool Joint Mobilizations L patella mob Direction sup,inf, med,lat Grade II Body Position Supine Reps/Duration 2 min tibfem Direction post Grade III Body Position Supine Comments post glide to facil knee flex PT-OP-R Modalities Start: 02/14/23 11:43 Freq: Status: Active Protocol: Document 03/15/23 15:03 [facility] (Rec: 03/15/23 16:04 [facility] [id number]) Hot Pack/Cold Pack Treatment Cold Pack Comments pt to ice at home PT-OP-T Assessment and Plan Start: 02/14/23 11:43 Freq: Status: Active Protocol: Document 03/27/23 11:17 [facility] (Rec: 03/27/23 12:05 [facility] [id number]) Physical Therapy Assessment Goals Three Impairment gait dysfunction Impairment antalgic gait on level surface , step-to pattern on stairs Skilled Nursing Goal (LTG) Patient will be able to ambulate on level surfaces without limp and on stairs with alternating pattern with min UE use. 03/10: See Gait Training w/ SPC for progress on level surface and stairs LTG Duration 04/17/23 Two Impairment weakness left knee Impairment 3-/5 Short Term Goal (STG) Patient to be instructed in individualized, progressive HEP for purposes of left knee strengthening, and functionally be able to move from sit to stand with min to no UE support 03/10: Pt reports 80-100 STS without UE support/day (4-5 sets x20) STG Duration 03/17/23 Theater Set Production Designer Goal (LTG) Patient to demonstrate at least 4+/5 muscle strength left knee to allow her to return to PLF LTG Duration 04/17/23 One Impairment lacking full knee AROM Short Term Goal (STG) Improve left knee AROM to 5- 110 degrees 03/01/23: 8-94 deg PROM 03/10: Pt completes full revolutions bwd/fwd on upright bicycle seat level 5. STG Duration 03/17/23 Theater Set Production Designer Goal (LTG) Improve left knee AROM to 0- 120 degrees to allow her to return to all prior activities LTG Duration 04/17/23 Assessment Summary Assessment No change in ROM today, very tight after less exercise. Stool scoot done at end of treatment and patient reported feeling it was the most effective any exercise has been for her. Physical Therapy Plan Frequency and Duration Frequency of Treatment 2x/Week Duration of treatment (weeks) 8 Plan of Care Start Date 02/15/23 Plan of Care End Date 04/17/23 Therapeutic Interventions Therapeutic Interventions Gait Training,Home Exercise Program,Manual Therapy,Patient /Caregiver Education,Self-Care /Home Management,Soft Tissue Mobilization,Taping, Therapeutic Activities, Therapeutic Exercises Modalities Cold Pack/Ice Massage,Electric Stimulation,Hot Packs Next Visit Focus/Plan Next Note Type Treatment Note Next Visit Plan Continue TKA rehab with emphasis on manual techniques, stool scoot exercise, functional closed chain ex with sit to stand
--- NOTE | 2023-03-29 16:49 | PT.OTN ---
Current Diagnoses Unilateral primary osteoarthritis, left knee (03/29/23) Physical Therapy Treatment Note PT-OP-A Visit Information Start: 02/14/23 11:43 Freq: Status: Active Protocol: Document 03/29/23 13:45 SW (Rec: 03/29/23 14:45 SW [id number]) Out-Patient Physical Therapy Visit Information Visit Information Visit Type Treatment Note Visit Start Time 13:45 Visit Stop Time 14:30 Total Visit Minutes 45 Visit Number 15 Number of MACHINE JOINT CUTTER Visits 1 PT-OP-B Current Condition Start: 02/14/23 11:43 Freq: Status: Active Protocol: Document 03/27/23 11:17 SAK (Rec: 03/27/23 12:05 SAK [id number]) Current Condition History of Current Condition Onset Date November 2022 Current Complaints limited function left knee History of Current Condition right TKA May 2022 (prior 3 surgeries right knee). Dr Zenaida Garcia, recovery hasn't gone well, right foot numb, still painful, has had manipulation, still limited bend of knee. Left TKA done by Dr. Dewey November 2022, had PT at another clinic because she said he worked her to the point of feeling she was going to throw up; stopped PT in December. Sees Dr. Dewey today, thinks he may recommend manipulation for left. Uses recumbant exercise bike Prior Treatments and Tests TKA in November 2022 (pt can't remember date.) Future Testing and Treatments Planned sees Dr. Dewey today PT-OP-C Subjective Start: 02/14/23 11:43 Freq: Status: Active Protocol: Document 03/29/23 13:45 SW (Rec: 03/29/23 14:45 SW [id number]) OP-PT Subjective Patient Comments Patient Comments Pt reports she is wearing her compression stocking today. No new c/o to report. PT-OP-F Manual Assessment Start: 02/14/23 11:43 Freq: Status: Active Protocol: Document 02/15/23 09:34 SAK (Rec: 02/15/23 14:59 SAK [id number]) Manual Assessments Soft Tissue Assessment Soft Tissue Mobility Assessment decreased scar tissue mobility left knee Joint Mobility Assessment Joint Mobility Assessment dec patellar mobility left knee sup and inf PT-OP-G Mobility & Gait Start: 02/14/23 11:43 Freq: Status: Active Protocol: Document 02/15/23 09:34 SAK (Rec: 02/15/23 14:59 [facility] [id number]) OP Mobility Evaluation Transfers Sit to Stand requires UE use OP Gait Assessment Gait Gait Assistance Required: Independent Distance (Feet) 50 Assistive Devices Assistive Device None Orthotic/Prosthetic Devices or Brace: No Gait Deviations General Gait Pattern Antalgic,Decreased Stride Length,Decreased Feet Clearance Factors Limiting Gait Function Factors Limiting Gait Function Decreased Strength,Limited Range of Motion,Pain Stair Climbing Evaluation Evaluation Level of Assist On Stairs Independent Devices Stair Climbing Assistive Devices Left Railing,Right Railing Technique/Endurance Stair Climbing Technique Step to Step PT-OP-J Posture/Palpation/Skin Start: 02/14/23 11:43 Freq: Status: Active Protocol: Document 02/15/23 09:34 [facility] (Rec: 02/15/23 10:31 [facility] [id number]) Posture Evaluation Position Standing Hip Posture (L) Externally Rotated,(R) Externally Rotated Knee Posture (L) Excess Flexion Ankle/Foot Posture (L) Forefoot Eversion,(R) Forefoot Eversion Palpation Assessment Location surgical scar Palpation Findings Soft Tissue Tightness Palpation Details poor scar mobility left and right Skin Assessment Edema Assessment left knee Edema Degree 2+ Incisional Assessment Incision Appearance/Comments well-healed, no signs or symptoms of infection PT-OP-K Range of Motion Start: 02/14/23 11:43 Freq: Status: Active Protocol: Document 03/17/23 13:47 NBM (Rec: 03/17/23 15:02 NBM [id number]) Knee Goniometric Range of Motion Knee Left Flexion Active (degrees) 90 Extension Active (degrees) 6 Extension Passive (degrees) 6 PT-OP-M Strength Start: 02/14/23 11:43 Freq: Status: Active Protocol: Document 02/15/23 09:34 [facility] (Rec: 02/15/23 14:59 [facility] [id number]) Knee Strength Knee Manual Muscle Testing Left Flexion (S2) 3- Fair- Extension (L3) 3- Fair- Right Flexion (S2) 4 Good Extension (L3) 4 Good PT-OP-Q Treatments Start: 02/14/23 11:43 Freq: Status: Active Protocol: Document 03/29/23 13:45 SW (Rec: 03/29/23 14:45 SW [id number]) Gym Equipment Cable Column (Body Solid) hamstring curl' Details lenny, f/b stretch into ext on machine Resistance 30 Reps/Time 10 x 2 Shuttle Recovery Unilateral Squats Resistance 37 (1 blue) Shuttle Recovery Platform Stable Reps/Time x15 ea Bilateral Squats Details pain-free range, end range stretch Resistance 62# (1 blue) Shuttle Recovery Platform Stable Reps/Time x15 Therapeutic Exercises Sitting Exercises stool scoot Sitting Exercise Name lenny and alternating Side bilateral Reps/Minutes 3 min contract/relax Sitting Exercise Name to inc knee flex Reps/Minutes 3 reps x 3 Sit to Stand Sitting Exercise Name Sit to stand w/LLE bias Resistance High low table Reps/Minutes 3 x 10 Comments cues for alignment Manual Therapy Treatment Soft Tissue Mobilization L knee Body Location L quads Mobilization Type Myofascial Release,Rolling, Strumming Intensity/Depth Moderate Body Position Supine scar Body Location L knee Mobilization Type Myofascial Release,Rolling Intensity/Depth Moderate Body Position Supine Comments palpating areas of restriction w/ ankle pump assist Joint Mobilizations L patella mob Direction sup,inf, med,lat Grade II Body Position Supine Reps/Duration 2 min PT-OP-R Modalities Start: 02/14/23 11:43 Freq: Status: Active Protocol: Document 03/15/23 15:03 SAK (Rec: 03/15/23 16:04 SAK [id number]) Hot Pack/Cold Pack Treatment Cold Pack Comments pt to ice at home PT-OP-T Assessment and Plan Start: 02/14/23 11:43 Freq: Status: Active Protocol: Document 03/29/23 13:45 SW (Rec: 03/29/23 14:45 SW [id number]) Physical Therapy Assessment Goals Three Impairment gait dysfunction Impairment antalgic gait on level surface , step-to pattern on stairs Half-Way Goal (LTG) Patient will be able to ambulate on level surfaces without limp and on stairs with alternating pattern with min UE use. 03/10: See Gait Training w/ SPC for progress on level surface and stairs LTG Duration 04/17/23 Two Impairment weakness left knee Impairment 3-/5 Short Term Goal (STG) Patient to be instructed in individualized, progressive HEP for purposes of left knee strengthening, and functionally be able to move from sit to stand with min to no UE support 03/10: Pt reports 80-100 STS without UE support/day (4-5 sets x20) STG Duration 03/17/23 Half-Way Goal (LTG) Patient to demonstrate at least 4+/5 muscle strength left knee to allow her to return to PLF LTG Duration 04/17/23 One Impairment lacking full knee AROM Short Term Goal (STG) Improve left knee AROM to 5- 110 degrees 03/01/23: 8-94 deg PROM 03/10: Pt completes full revolutions bwd/fwd on upright bicycle seat level 5. STG Duration 03/17/23 Half-Way Goal (LTG) Improve left knee AROM to 0- 120 degrees to allow her to return to all prior activities LTG Duration 04/17/23 Assessment Summary Assessment Continued on bike to increase ROM, verbal cues for full rotation without hip compensation. Progressed sit to stand today with bias of LLE to increase strength. Pt reports foot numbness post surgery, difficulty with awareness of placement. Physical Therapy Plan Frequency and Duration Frequency of Treatment 2x/Week Duration of treatment (weeks) 8 Plan of Care Start Date 02/15/23 Plan of Care End Date 04/17/23 Therapeutic Interventions Therapeutic Interventions Gait Training,Home Exercise Program,Manual Therapy,Patient /Caregiver Education,Self-Care /Home Management,Soft Tissue Mobilization,Taping, Therapeutic Activities, Therapeutic Exercises Modalities Cold Pack/Ice Massage,Electric Stimulation,Hot Packs Next Visit Focus/Plan Next Note Type Treatment Note Next Visit Plan Continue TKA rehab with emphasis on manual techniques, stool scoot exercise, functional closed chain ex with sit to stand
--- NOTE | 2023-04-05 16:14 | PT.OTN ---
Current Diagnoses Unilateral primary osteoarthritis, left knee (04/05/23) Physical Therapy Treatment Note PT-OP-A Visit Information Start: 02/14/23 11:43 Freq: Status: Active Protocol: Document 04/05/23 14:54 [facility] (Rec: 04/05/23 16:14 [facility] [id number]) Out-Patient Physical Therapy Visit Information Visit Information Visit Type Treatment Note Visit Start Time 15:04 Visit Stop Time 15:49 Total Visit Minutes 45 Number of JIG BORE TOOL MAKER Visits 0 PT-OP-B Current Condition Start: 02/14/23 11:43 Freq: Status: Active Protocol: Document 03/27/23 11:17 SAK (Rec: 03/27/23 12:05 [facility] [id number]) Current Condition History of Current Condition Onset Date November 2022 Current Complaints limited function left knee History of Current Condition right TKA May 2022 (prior 3 surgeries right knee). Dr Zenaida Garcia, recovery hasn't gone well, right foot numb, still painful, has had manipulation, still limited bend of knee. Left TKA done by Dr. Dewey November 2022, had PT at another clinic because she said he worked her to the point of feeling she was going to throw up; stopped PT in December. Sees Dr. Dewey today, thinks he may recommend manipulation for left. Uses recumbant exercise bike Prior Treatments and Tests TKA in November 2022 (pt can't remember date.) Future Testing and Treatments Planned sees Dr. Dewey today PT-OP-C Subjective Start: 02/14/23 11:43 Freq: Status: Active Protocol: Document 04/05/23 14:54 [facility] (Rec: 04/05/23 16:14 [facility] [id number]) OP-PT Subjective Patient Comments Patient Comments Saw surgeon and he is going to do a second manipulation . Also prescribing ointment for scar. Patient missed last 2 PT appts due to care of grandkids. PT-OP-F Manual Assessment Start: 02/14/23 11:43 Freq: Status: Active Protocol: Document 02/15/23 09:34 SAK (Rec: 02/15/23 14:59 [facility] [id number]) Manual Assessments Soft Tissue Assessment Soft Tissue Mobility Assessment decreased scar tissue mobility left knee Joint Mobility Assessment Joint Mobility Assessment dec patellar mobility left knee sup and inf PT-OP-G Mobility & Gait Start: 02/14/23 11:43 Freq: Status: Active Protocol: Document 02/15/23 09:34 SAK (Rec: 02/15/23 14:59 [facility] [id number]) OP Mobility Evaluation Transfers Sit to Stand requires UE use OP Gait Assessment Gait Gait Assistance Required: Independent Distance (Feet) 50 Assistive Devices Assistive Device None Orthotic/Prosthetic Devices or Brace: No Gait Deviations General Gait Pattern Antalgic,Decreased Stride Length,Decreased Feet Clearance Factors Limiting Gait Function Factors Limiting Gait Function Decreased Strength,Limited Range of Motion,Pain Stair Climbing Evaluation Evaluation Level of Assist On Stairs Independent Devices Stair Climbing Assistive Devices Left Railing,Right Railing Technique/Endurance Stair Climbing Technique Step to Step PT-OP-J Posture/Palpation/Skin Start: 02/14/23 11:43 Freq: Status: Active Protocol: Document 02/15/23 09:34 SAK (Rec: 02/15/23 10:31 SAK [id number]) Posture Evaluation Position Standing Hip Posture (L) Externally Rotated,(R) Externally Rotated Knee Posture (L) Excess Flexion Ankle/Foot Posture (L) Forefoot Eversion,(R) Forefoot Eversion Palpation Assessment Location surgical scar Palpation Findings Soft Tissue Tightness Palpation Details poor scar mobility left and right Skin Assessment Edema Assessment left knee Edema Degree 2+ Incisional Assessment Incision Appearance/Comments well-healed, no signs or symptoms of infection PT-OP-K Range of Motion Start: 02/14/23 11:43 Freq: Status: Active Protocol: Document 03/17/23 13:47 NB (Rec: 03/17/23 15:02 NB [id number]) Knee Goniometric Range of Motion Knee Left Flexion Active (degrees) 90 Extension Active (degrees) 6 Extension Passive (degrees) 6 PT-OP-M Strength Start: 02/14/23 11:43 Freq: Status: Active Protocol: Document 02/15/23 09:34 [facility] (Rec: 02/15/23 14:59 [facility] [id number]) Knee Strength Knee Manual Muscle Testing Left Flexion (S2) 3- Fair- Extension (L3) 3- Fair- Right Flexion (S2) 4 Good Extension (L3) 4 Good PT-OP-Q Treatments Start: 02/14/23 11:43 Freq: Status: Active Protocol: Document 04/05/23 14:54 SAK (Rec: 04/05/23 16:14 [facility] [id number]) Cardio Equipment Bicycle (Upright) Duration (Minutes) 10 Resistance 1 Seat Position 4>3 Other more difficulty achieving full revolution Therapeutic Exercises Supine Exercises gravity assisted knee flex Equipment Used 2# weight Reps/Minutes 3x10 Comments pt holding behind thigh, cues for deep breathing Sitting Exercises Sit to Stand Sitting Exercise Name Sit to stand w/LLE bias Resistance High low table Reps/Minutes 3 x 10 Comments verbal and manual cues for alignment and fwd translation tibia knee flexion stretch Side left Equipment Used table, slider sheet Reps/Minutes 5 x 10SH ea Comments PT manual Manual Therapy Treatment Joint Mobilizations tibfem Direction post Grade III Body Position Supine Comments post glide to facil knee flex with knee flexed, foot flat on table Self-Care/Home Management Treatment Education Patient Education Body Mechanics,Pain Management ,Posture Other Education Importance of edema management with patient given donated XL compression stocking 20-30 mm Hg pressure with good fit. Stressed importance of long duration stretching and sit to stand as exercise without compensation allowing knee to move forward PT-OP-R Modalities Start: 02/14/23 11:43 Freq: Status: Active Protocol: Document 03/15/23 15:03 [facility] (Rec: 03/15/23 16:04 [facility] [id number]) Hot Pack/Cold Pack Treatment Cold Pack Comments pt to ice at home PT-OP-T Assessment and Plan Start: 02/14/23 11:43 Freq: Status: Active Protocol: Document 04/05/23 14:54 [facility] (Rec: 04/05/23 16:14 [facility] [id number]) Physical Therapy Assessment Goals Three Impairment gait dysfunction Impairment antalgic gait on level surface , step-to pattern on stairs Group Home Goal (LTG) Patient will be able to ambulate on level surfaces without limp and on stairs with alternating pattern with min UE use. 03/10: See Gait Training w/ SPC for progress on level surface and stairs LTG Duration 04/17/23 Two Impairment weakness left knee Impairment 3-/5 Short Term Goal (STG) Patient to be instructed in individualized, progressive HEP for purposes of left knee strengthening, and functionally be able to move from sit to stand with min to no UE support 03/10: Pt reports 80-100 STS without UE support/day (4-5 sets x20) STG Duration 03/17/23 Seafood Clerk Goal (LTG) Patient to demonstrate at least 4+/5 muscle strength left knee to allow her to return to PLF LTG Duration 04/17/23 One Impairment lacking full knee AROM Short Term Goal (STG) Improve left knee AROM to 5- 110 degrees 03/01/23: 8-94 deg PROM 03/10: Pt completes full revolutions bwd/fwd on upright bicycle seat level 5. STG Duration 03/17/23 Seafood Clerk Goal (LTG) Improve left knee AROM to 0- 120 degrees to allow her to return to all prior activities LTG Duration 04/17/23 Assessment Summary Assessment Able to get patient to 93 degrees knee flexion after much work with ther ex and manual techniques, initially at 85 to start session. Patient given compression stocking with higher compression level and instructed to wear daily, emphasis on low load long duration stretches and functional stretches with sit to stand. Physical Therapy Plan Frequency and Duration Frequency of Treatment 2x/Week Duration of treatment (weeks) 8 Plan of Care Start Date 02/15/23 Plan of Care End Date 04/17/23 Therapeutic Interventions Therapeutic Interventions Gait Training,Home Exercise Program,Manual Therapy,Patient /Caregiver Education,Self-Care /Home Management,Soft Tissue Mobilization,Taping, Therapeutic Activities, Therapeutic Exercises Modalities Cold Pack/Ice Massage,Electric Stimulation,Hot Packs Next Visit Focus/Plan Next Note Type Treatment Note Next Visit Plan Assess response to inc compression level of stockings , patellar mobilization espec inf glide, scar mobilization, gravity assisted knee flex with weight on ankle, seated on therapy ball (parallel bars ) and roll fwd/bck, use w/c with foot of surgical side up against block at wall, push w/ c fwd with hands for inc knee flex, squats holding onto wall bar with goal of box to sit on, contract/relax, ice after.
--- NOTE | 2023-04-10 16:34 | PT.OTN ---
Current Diagnoses Unilateral primary osteoarthritis, left knee (04/10/23) Physical Therapy Treatment Note PT-OP-A Visit Information Start: 02/14/23 11:43 Freq: Status: Active Protocol: Document 04/10/23 11:27 [facility] (Rec: 04/10/23 12:09 [facility] [id number]) Out-Patient Physical Therapy Visit Information Visit Information Visit Type Treatment Note Visit Start Time 11:20 Visit Stop Time 12:15 Total Visit Minutes 55 Visit Number 17 Number of ASSEMBLER MOTOR VEHICLE Visits 0 Evaluation Information Evaluation Date 02/15/23 PT-OP-B Current Condition Start: 02/14/23 11:43 Freq: Status: Active Protocol: Document 03/27/23 11:17 [facility]AK (Rec: 03/27/23 12:05 [facility] [id number]) Current Condition History of Current Condition Onset Date November 2022 Current Complaints limited function left knee History of Current Condition right TKA May 2022 (prior 3 surgeries right knee). Dr Zenaida Garcia, recovery hasn't gone well, right foot numb, still painful, has had manipulation, still limited bend of knee. Left TKA done by Dr. Dewey November 2022, had PT at another clinic because she said he worked her to the point of feeling she was going to throw up; stopped PT in December. Sees Dr. Dewey today, thinks he may recommend manipulation for left. Uses recumbant exercise bike Prior Treatments and Tests TKA in November 2022 (pt can't remember date.) Future Testing and Treatments Planned sees Dr. Dewey today PT-OP-C Subjective Start: 02/14/23 11:43 Freq: Status: Active Protocol: Document 04/10/23 11:27 [facility] (Rec: 04/10/23 12:09 [facility] [id number]) OP-PT Subjective Patient Comments Patient Comments Wearing compression stocking consistently, knee feels better while wearing. Doing exercises but doesn't feel she is getting any progress. PT-OP-F Manual Assessment Start: 02/14/23 11:43 Freq: Status: Active Protocol: Document 02/15/23 09:34 [facility] (Rec: 02/15/23 14:59 [facility] [id number]) Manual Assessments Soft Tissue Assessment Soft Tissue Mobility Assessment decreased scar tissue mobility left knee Joint Mobility Assessment Joint Mobility Assessment dec patellar mobility left knee sup and inf PT-OP-G Mobility & Gait Start: 02/14/23 11:43 Freq: Status: Active Protocol: Document 02/15/23 09:34 [facility] (Rec: 02/15/23 14:59 [facility] [id number]) OP Mobility Evaluation Transfers Sit to Stand requires UE use OP Gait Assessment Gait Gait Assistance Required: Independent Distance (Feet) 50 Assistive Devices Assistive Device None Orthotic/Prosthetic Devices or Brace: No Gait Deviations General Gait Pattern Antalgic,Decreased Stride Length,Decreased Feet Clearance Factors Limiting Gait Function Factors Limiting Gait Function Decreased Strength,Limited Range of Motion,Pain Stair Climbing Evaluation Evaluation Level of Assist On Stairs Independent Devices Stair Climbing Assistive Devices Left Railing,Right Railing Technique/Endurance Stair Climbing Technique Step to Step PT-OP-J Posture/Palpation/Skin Start: 02/14/23 11:43 Freq: Status: Active Protocol: Document 02/15/23 09:34 [facility] (Rec: 02/15/23 10:31 [facility] [id number]) Posture Evaluation Position Standing Hip Posture (L) Externally Rotated,(R) Externally Rotated Knee Posture (L) Excess Flexion Ankle/Foot Posture (L) Forefoot Eversion,(R) Forefoot Eversion Palpation Assessment Location surgical scar Palpation Findings Soft Tissue Tightness Palpation Details poor scar mobility left and right Skin Assessment Edema Assessment left knee Edema Degree 2+ Incisional Assessment Incision Appearance/Comments well-healed, no signs or symptoms of infection PT-OP-K Range of Motion Start: 02/14/23 11:43 Freq: Status: Active Protocol: Document 03/17/23 13:47 [facility] (Rec: 03/17/23 15:02 [facility] [id number]) Knee Goniometric Range of Motion Knee Left Flexion Active (degrees) 90 Extension Active (degrees) 6 Extension Passive (degrees) 6 PT-OP-M Strength Start: 02/14/23 11:43 Freq: Status: Active Protocol: Document 02/15/23 09:34 [facility] (Rec: 02/15/23 14:59 [facility] [id number]) Knee Strength Knee Manual Muscle Testing Left Flexion (S2) 3- Fair- Extension (L3) 3- Fair- Right Flexion (S2) 4 Good Extension (L3) 4 Good PT-OP-Q Treatments Start: 02/14/23 11:43 Freq: Status: Active Protocol: Document 04/10/23 11:27 [facility] (Rec: 04/10/23 12:09 [facility] [id number]) Cardio Equipment Bicycle (Upright) Duration (Minutes) 10 Resistance 1 Seat Position 4>3 Other more difficulty achieving full revolution Gym Equipment Therapeutic Ball 55cm Exercise Details knee flex/ext Ball Size/Color 55cm Body Position Sitting Reps/Duration x30 Comments using arms to pull fwd and back, feet stay in one position on floor. Therapeutic Exercises Supine Exercises gravity assisted knee flex Equipment Used 2# weight Reps/Minutes 3x30, gentle stretch by PT Comments pt holding behind thigh, cues for deep breathing Sitting Exercises wheelchair walking Equipment Used w/c Reps/Minutes 2 min Comments legs only w/c knee flex Equipment Used w/c, block between end of feet and wall Reps/Minutes 3 min Comments UE's to wheel forward for inc knee flex contract/relax Sitting Exercise Name to inc knee flex Reps/Minutes 3 reps x 3 Sit to Stand Sitting Exercise Name sit>< stand Equipment Used decreasing height box, holding onto stair rail Reps/Minutes 3 x 10 Comments verbal and manual cues for alignment and fwd translation tibia, PT mod manu Self-Care/Home Management Treatment Education Patient Education Home Exercise Program Other Education Importance of allowing normal forward movement of tibia with sit >< stand; PT demo, PT manual guidance during sit >< stand. Patient demonstrated improved understanding of mechanics without compensation . Activities Self-Care/Home Management Activities emphasis on low load long duration stretching of knee with gravity assisted knee flex using wall above bed. Patient demonstrated good understanding. PT-OP-R Modalities Start: 02/14/23 11:43 Freq: Status: Active Protocol: Document 04/10/23 11:27 [facility] (Rec: 04/10/23 12:10 [facility] [id number]) Electric Stimulation Electric Stimulation Interferential Current (IFC) Body Location left knee Duration (Minutes) 10 Intensity 13 Target/Sweep Sweep Patient Position Hooklying Combined With Heat/Cold Cold Pack PT-OP-T Assessment and Plan Start: 02/14/23 11:43 Freq: Status: Active Protocol: Document 04/10/23 11:27 [facility] (Rec: 04/10/23 12:09 [facility] [id number]) Physical Therapy Assessment Goals Three Impairment gait dysfunction Impairment antalgic gait on level surface , step-to pattern on stairs Intermediate Goal (LTG) Patient will be able to ambulate on level surfaces without limp and on stairs with alternating pattern with min UE use. 03/10: See Gait Training w/ SPC for progress on level surface and stairs LTG Duration 04/17/23 Two Impairment weakness left knee Impairment 3-/5 Short Term Goal (STG) Patient to be instructed in individualized, progressive HEP for purposes of left knee strengthening, and functionally be able to move from sit to stand with min to no UE support 03/10: Pt reports 80-100 STS without UE support/day (4-5 sets x20) STG Duration 03/17/23 [employer] Goal (LTG) Patient to demonstrate at least 4+/5 muscle strength left knee to allow her to return to PLF LTG Duration 04/17/23 One Impairment lacking full knee AROM Short Term Goal (STG) Improve left knee AROM to 5- 110 degrees 03/01/23: 8-94 deg PROM 03/10: Pt completes full revolutions bwd/fwd on upright bicycle seat level 5. STG Duration 03/17/23 [employer] Goal (LTG) Improve left knee AROM to 0- 120 degrees to allow her to return to all prior activities LTG Duration 04/17/23 Assessment Summary Assessment Patient AROM 8-90, PROM 6-96 today. Emphasis on low load, long duration stretching at home. Worked on sit >< stand transistions with PT demo and PT manual guidance to allow forward translation of tibia for improved mechanics and increased knee flexion; patient demonstrated good understanding. Physical Therapy Plan Frequency and Duration Frequency of Treatment 2x/Week Duration of treatment (weeks) 8 Plan of Care Start Date 02/15/23 Plan of Care End Date 04/17/23 Therapeutic Interventions Therapeutic Interventions Gait Training,Home Exercise Program,Manual Therapy,Patient /Caregiver Education,Self-Care /Home Management,Soft Tissue Mobilization,Taping, Therapeutic Activities, Therapeutic Exercises Modalities Cold Pack/Ice Massage,Electric Stimulation,Hot Packs Next Visit Focus/Plan Next Note Type Treatment Note Next Visit Plan Scar mob, patellar mobs, STM quads and hamstrings, gravity assisted knee flex at wall with weight, prone knee ext with weight, functional sit>< stand with PT guidance for tibial movement with dec height surface as sonny.
--- NOTE | 2023-04-12 15:24 | PT.OTN ---
Current Diagnoses Unilateral primary osteoarthritis, left knee (04/12/23) Physical Therapy Treatment Note PT-OP-A Visit Information Start: 02/14/23 11:43 Freq: Status: Active Protocol: Document 04/12/23 13:11 (Rec: 04/12/23 15:20 [id number]) Out-Patient Physical Therapy Visit Information Visit Information Visit Type Treatment Note Visit Start Time 13:04 Visit Stop Time 13:59 Total Visit Minutes 55 Visit Number 18 PT-OP-B Current Condition Start: 02/14/23 11:43 Freq: Status: Active Protocol: Document 03/27/23 11:17 [facility] (Rec: 03/27/23 12:05 [facility] [id number]) Current Condition History of Current Condition Onset Date November 2022 Current Complaints limited function left knee History of Current Condition right TKA May 2022 (prior 3 surgeries right knee). Dr Zenaida Garcia, recovery hasn't gone well, right foot numb, still painful, has had manipulation, still limited bend of knee. Left TKA done by Dr. Dewey November 2022, had PT at another clinic because she said he worked her to the point of feeling she was going to throw up; stopped PT in December. Sees Dr. Dewey today, thinks he may recommend manipulation for left. Uses recumbant exercise bike Prior Treatments and Tests TKA in November 2022 (pt can't remember date.) Future Testing and Treatments Planned sees Dr. Dewey today PT-OP-C Subjective Start: 02/14/23 11:43 Freq: Status: Active Protocol: Document 04/12/23 13:11 (Rec: 04/12/23 15:20 [id number]) OP-PT Subjective Patient Comments Patient Comments Pt reports lack of sleep last night, painful. Ordered a petite compression stocking, arrived too long, pt is planning to visit a store for a new compression stocking that fits her better. PT-OP-F Manual Assessment Start: 02/14/23 11:43 Freq: Status: Active Protocol: Document 02/15/23 09:34 [facility] (Rec: 02/15/23 14:59 [facility] [id number]) Manual Assessments Soft Tissue Assessment Soft Tissue Mobility Assessment decreased scar tissue mobility left knee Joint Mobility Assessment Joint Mobility Assessment dec patellar mobility left knee sup and inf PT-OP-G Mobility & Gait Start: 02/14/23 11:43 Freq: Status: Active Protocol: Document 02/15/23 09:34 [facility]AK (Rec: 02/15/23 14:59 [facility] [id number]) OP Mobility Evaluation Transfers Sit to Stand requires UE use OP Gait Assessment Gait Gait Assistance Required: Independent Distance (Feet) 50 Assistive Devices Assistive Device None Orthotic/Prosthetic Devices or Brace: No Gait Deviations General Gait Pattern Antalgic,Decreased Stride Length,Decreased Feet Clearance Factors Limiting Gait Function Factors Limiting Gait Function Decreased Strength,Limited Range of Motion,Pain Stair Climbing Evaluation Evaluation Level of Assist On Stairs Independent Devices Stair Climbing Assistive Devices Left Railing,Right Railing Technique/Endurance Stair Climbing Technique Step to Step PT-OP-J Posture/Palpation/Skin Start: 02/14/23 11:43 Freq: Status: Active Protocol: Document 02/15/23 09:34 [facility] (Rec: 02/15/23 10:31 [facility] [id number]) Posture Evaluation Position Standing Hip Posture (L) Externally Rotated,(R) Externally Rotated Knee Posture (L) Excess Flexion Ankle/Foot Posture (L) Forefoot Eversion,(R) Forefoot Eversion Palpation Assessment Location surgical scar Palpation Findings Soft Tissue Tightness Palpation Details poor scar mobility left and right Skin Assessment Edema Assessment left knee Edema Degree 2+ Incisional Assessment Incision Appearance/Comments well-healed, no signs or symptoms of infection PT-OP-K Range of Motion Start: 02/14/23 11:43 Freq: Status: Active Protocol: Document 03/17/23 13:47 NBM (Rec: 03/17/23 15:02 [facility] [id number]) Knee Goniometric Range of Motion Knee Left Flexion Active (degrees) 90 Extension Active (degrees) 6 Extension Passive (degrees) 6 PT-OP-M Strength Start: 02/14/23 11:43 Freq: Status: Active Protocol: Document 02/15/23 09:34 [facility] (Rec: 02/15/23 14:59 [facility] [id number]) Knee Strength Knee Manual Muscle Testing Left Flexion (S2) 3- Fair- Extension (L3) 3- Fair- Right Flexion (S2) 4 Good Extension (L3) 4 Good PT-OP-Q Treatments Start: 02/14/23 11:43 Freq: Status: Active Protocol: Document 04/12/23 13:11 (Rec: 04/12/23 15:20 [id number]) Cardio Equipment Bicycle (Upright) Duration (Minutes) 10 Resistance 1 Seat Position 4>3 Other more difficulty achieving full revolution Gym Equipment Therapeutic Ball 55cm Exercise Details knee flex/ext Ball Size/Color 55cm Body Position Sitting Reps/Duration x30 Comments using arms to pull fwd and back, feet stay in one position on floor. Therapeutic Exercises Supine Exercises gravity assisted knee flex Equipment Used 2# weight Reps/Minutes 3x30, gentle stretch by MAIL MANAGER Comments pt holding behind thigh, cues for deep breathing Sitting Exercises wheelchair walking Sitting Exercise Name stool scooting Equipment Used stool scoot Reps/Minutes 2 min Comments legs only w/c knee flex Sitting Exercise Name used stool today, w/c unavailable Equipment Used w/c, block between end of feet and wall Reps/Minutes 3 min Comments UE's to wheel forward for inc knee flex stool scoot Sitting Exercise Name lenny and alternating Side bilateral Reps/Minutes 3 min contract/relax Sitting Exercise Name to inc knee flex Reps/Minutes 3 reps x 3 Sit to Stand Sitting Exercise Name sit>< stand Equipment Used decreasing height box, holding onto stair rail Reps/Minutes 3 x 10 Comments verbal and manual cues for alignment and fwd translation tibia, PT mod manu PT-OP-R Modalities Start: 02/14/23 11:43 Freq: Status: Active Protocol: Document 04/12/23 13:11 SW (Rec: 04/12/23 15:21 [id number]) Hot Pack/Cold Pack Treatment Cold Pack Treatment Duration (minutes) 10 Patient Tolerance Good Comments LE elevated on bolster PT-OP-T Assessment and Plan Start: 02/14/23 11:43 Freq: Status: Active Protocol: Document 04/12/23 13:11 SW (Rec: 04/12/23 15:20 [id number]) Physical Therapy Assessment Goals Three Impairment gait dysfunction Impairment antalgic gait on level surface , step-to pattern on stairs Half-Way Goal (LTG) Patient will be able to ambulate on level surfaces without limp and on stairs with alternating pattern with min UE use. 03/10: See Gait Training w/ SPC for progress on level surface and stairs LTG Duration 04/17/23 Two Impairment weakness left knee Impairment 3-/5 Short Term Goal (STG) Patient to be instructed in individualized, progressive HEP for purposes of left knee strengthening, and functionally be able to move from sit to stand with min to no UE support 03/10: Pt reports 80-100 STS without UE support/day (4-5 sets x20) STG Duration 03/17/23 Half-Way Goal (LTG) Patient to demonstrate at least 4+/5 muscle strength left knee to allow her to return to PLF LTG Duration 04/17/23 One Impairment lacking full knee AROM Short Term Goal (STG) Improve left knee AROM to 5- 110 degrees 03/01/23: 8-94 deg PROM 03/10: Pt completes full revolutions bwd/fwd on upright bicycle seat level 5. STG Duration 03/17/23 [employer] Goal (LTG) Improve left knee AROM to 0- 120 degrees to allow her to return to all prior activities LTG Duration 04/17/23 Assessment Summary Assessment Treatment emphasized low load, long duration stretching. Educated patient on breath work and relaxing into stretch , then holding instead of trying to push into full flexion right away, improved pt tolerance and increased range during stretch. Frequent cues for LE alignment, improved by EOS with pt self correction. Ended session with modality/elevation for pain and edema. Physical Therapy Plan Frequency and Duration Frequency of Treatment 2x/Week Duration of treatment (weeks) 8 Plan of Care Start Date 02/15/23 Plan of Care End Date 04/17/23 Therapeutic Interventions Therapeutic Interventions Gait Training,Home Exercise Program,Manual Therapy,Patient /Caregiver Education,Self-Care /Home Management,Soft Tissue Mobilization,Taping, Therapeutic Activities, Therapeutic Exercises Modalities Cold Pack/Ice Massage,Electric Stimulation,Hot Packs Next Visit Focus/Plan Next Note Type Treatment Note Next Visit Plan Scar mob, patellar mobs, STM quads and hamstrings, gravity assisted knee flex at wall with weight, prone knee ext with weight, functional sit>< stand with PT guidance for tibial movement with dec height surface as sonny.
--- NOTE | 2023-04-18 13:51 | PT.OTN ---
Current Diagnoses Unilateral primary osteoarthritis, left knee (04/17/23) Physical Therapy Treatment Note PT-OP-A Visit Information Start: 02/14/23 11:43 Freq: Status: Active Protocol: Document 04/17/23 11:17 [facility] (Rec: 04/17/23 12:07 [facility] [id number]) Out-Patient Physical Therapy Visit Information Visit Information Visit Type Treatment Note Visit Start Time 11:18 Visit Stop Time 12:01 Total Visit Minutes 53 Visit Number 19 PT-OP-B Current Condition Start: 02/14/23 11:43 Freq: Status: Active Protocol: Document 03/27/23 11:17 [facility] (Rec: 03/27/23 12:05 [facility] [id number]) Current Condition History of Current Condition Onset Date November 2022 Current Complaints limited function left knee History of Current Condition right TKA May 2022 (prior 3 surgeries right knee). Dr Zenaida Garcia, recovery hasn't gone well, right foot numb, still painful, has had manipulation, still limited bend of knee. Left TKA done by Dr. Dewey November 2022, had PT at another clinic because she said he worked her to the point of feeling she was going to throw up; stopped PT in December. Sees Dr. Dewey today, thinks he may recommend manipulation for left. Uses recumbant exercise bike Prior Treatments and Tests TKA in November 2022 (pt can't remember date.) Future Testing and Treatments Planned sees Dr. Dewey today PT-OP-C Subjective Start: 02/14/23 11:43 Freq: Status: Active Protocol: Document 04/17/23 11:17 [facility] (Rec: 04/17/23 12:07 [facility] [id number]) OP-PT Subjective Patient Comments Patient Comments Had a fever last Monday, had to cancel. 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 Compliant to HEP. Leaves for 1 week vacation in [place] end of the week. PT-OP-F Manual Assessment Start: 02/14/23 11:43 Freq: Status: Active Protocol: Document 02/15/23 09:34 [facility] (Rec: 02/15/23 14:59 [facility] [id number]) Manual Assessments Soft Tissue Assessment Soft Tissue Mobility Assessment decreased scar tissue mobility left knee Joint Mobility Assessment Joint Mobility Assessment dec patellar mobility left knee sup and inf PT-OP-G Mobility & Gait Start: 02/14/23 11:43 Freq: Status: Active Protocol: Document 02/15/23 09:34 [facility] (Rec: 02/15/23 14:59 [facility] [id number]) OP Mobility Evaluation Transfers Sit to Stand requires UE use OP Gait Assessment Gait Gait Assistance Required: Independent Distance (Feet) 50 Assistive Devices Assistive Device None Orthotic/Prosthetic Devices or Brace: No Gait Deviations General Gait Pattern Antalgic,Decreased Stride Length,Decreased Feet Clearance Factors Limiting Gait Function Factors Limiting Gait Function Decreased Strength,Limited Range of Motion,Pain Stair Climbing Evaluation Evaluation Level of Assist On Stairs Independent Devices Stair Climbing Assistive Devices Left Railing,Right Railing Technique/Endurance Stair Climbing Technique Step to Step PT-OP-J Posture/Palpation/Skin Start: 02/14/23 11:43 Freq: Status: Active Protocol: Document 02/15/23 09:34 [facility] (Rec: 02/15/23 10:31 [facility] [id number]) Posture Evaluation Position Standing Hip Posture (L) Externally Rotated,(R) Externally Rotated Knee Posture (L) Excess Flexion Ankle/Foot Posture (L) Forefoot Eversion,(R) Forefoot Eversion Palpation Assessment Location surgical scar Palpation Findings Soft Tissue Tightness Palpation Details poor scar mobility left and right Skin Assessment Edema Assessment left knee Edema Degree 2+ Incisional Assessment Incision Appearance/Comments well-healed, no signs or symptoms of infection PT-OP-K Range of Motion Start: 02/14/23 11:43 Freq: Status: Active Protocol: Document 03/17/23 13:47 [facility] (Rec: 03/17/23 15:02 NB [id number]) Knee Goniometric Range of Motion Knee Left Flexion Active (degrees) 90 Extension Active (degrees) 6 Extension Passive (degrees) 6 PT-OP-M Strength Start: 02/14/23 11:43 Freq: Status: Active Protocol: Document 02/15/23 09:34 [facility] (Rec: 02/15/23 14:59 [facility] [id number]) Knee Strength Knee Manual Muscle Testing Left Flexion (S2) 3- Fair- Extension (L3) 3- Fair- Right Flexion (S2) 4 Good Extension (L3) 4 Good PT-OP-Q Treatments Start: 02/14/23 11:43 Freq: Status: Active Protocol: Document 04/17/23 11:17 [facility] (Rec: 04/17/23 12:07 [facility] [id number]) Cardio Equipment Recumbent Elliptical (Biodex) Duration (Minutes) 7 Resistance 1 Seat Position 6-4 Therapeutic Exercises Supine Exercises gravity assisted knee flex Equipment Used 2# weight Reps/Minutes 3x30, gentle stretch by ORDNANCE ARTIFICER Comments wall Knee extension gravity stretch Reps/Minutes x5 minutes Sitting Exercises wheelchair walking Sitting Exercise Name stool scooting Equipment Used stool scoot Reps/Minutes 2 min Comments legs only Sit to Stand Sitting Exercise Name sit>< stand Equipment Used decreasing height box, holding onto stair rail Reps/Minutes 2x Comments discontinued due to patient reporting ribcage pain from last session Standing Exercises calf stretch Equipment Used ELHAM Reps/Minutes 2x30 seconds Manual Therapy Treatment Soft Tissue Mobilization L knee Body Location L quads Mobilization Type Myofascial Release,Rolling, Strumming Intensity/Depth Moderate Body Position Supine scar Body Location L knee Mobilization Type Myofascial Release,Rolling Intensity/Depth Moderate Body Position Supine Comments palpating areas of restriction w/ ankle pump assist Joint Mobilizations L patella mob Direction sup,inf, med,lat Grade II Body Position Supine Reps/Duration 5 min Self-Care/Home Management Treatment Education Other Education self mob patella PT-OP-R Modalities Start: 02/14/23 11:43 Freq: Status: Active Protocol: Document 04/17/23 11:17 [facility] (Rec: 04/17/23 12:07 [facility] [id number]) Hot Pack/Cold Pack Treatment Cold Pack Location left knee Treatment Duration (minutes) 10 Patient Tolerance Good Comments LE elevated on bolster PT-OP-T Assessment and Plan Start: 02/14/23 11:43 Freq: Status: Active Protocol: Document 04/17/23 11:17 [facility] (Rec: 04/17/23 12:07 [facility] [id number]) Physical Therapy Assessment Goals Three Impairment gait dysfunction Impairment antalgic gait on level surface , step-to pattern on stairs Mcc Goal (LTG) Patient will be able to ambulate on level surfaces without limp and on stairs with alternating pattern with min UE use. 03/10: See Gait Training w/ SPC for progress on level surface and stairs LTG Duration 04/17/23 Two Impairment weakness left knee Impairment 3-/5 Short Term Goal (STG) Patient to be instructed in individualized, progressive HEP for purposes of left knee strengthening, and functionally be able to move from sit to stand with min to no UE support 03/10: Pt reports 80-100 STS without UE support/day (4-5 sets x20) STG Duration 03/17/23 Mcc Goal (LTG) Patient to demonstrate at least 4+/5 muscle strength left knee to allow her to return to PLF LTG Duration 04/17/23 One Impairment lacking full knee AROM Short Term Goal (STG) Improve left knee AROM to 5- 110 degrees 03/01/23: 8-94 deg PROM 03/10: Pt completes full revolutions bwd/fwd on upright bicycle seat level 5. STG Duration 03/17/23 Senior Speech Pathologist Goal (LTG) Improve left knee AROM to 0- 120 degrees to allow her to return to all prior activities LTG Duration 04/17/23 Assessment Summary Assessment end of session left knee PROM 5-94, AROM 8 - 90 Physical Therapy Plan Frequency and Duration Frequency of Treatment 2x/Week Duration of treatment (weeks) 8 Plan of Care Start Date 02/15/23 Plan of Care End Date 04/17/23 Therapeutic Interventions Therapeutic Interventions Gait Training,Home Exercise Program,Manual Therapy,Patient /Caregiver Education,Self-Care /Home Management,Soft Tissue Mobilization,Taping, Therapeutic Activities, Therapeutic Exercises Modalities Cold Pack/Ice Massage,Electric Stimulation,Hot Packs Next Visit Focus/Plan Next Note Type Treatment Note Next Visit Plan Scar mob, patellar mobs, STM quads and hamstrings, gravity assisted knee flex at wall with weight, prone knee ext with weight, functional sit>< stand with PT guidance for tibial movement with dec height surface as sonny.
--- NOTE | 2023-05-01 09:28 | PT-OP ANOTE ---
patient cancelled PT appointment, NRG
--- NOTE | 2023-05-08 10:09 | PT.OPPOC ---
Physical, Occupational & Speech Therapy At [facility] Current Diagnoses Unilateral primary osteoarthritis, left knee (05/08/23) Visit Care Team Role Provider Type Tiera Guerrero MD Family Provider Non-Staff Primary Care Provider Specialty: Pediatrics Address: [address] [place] [address], [id number] Email: Aimee Shea PA-C Attending Provider Non-Staff Referring Provider Specialty: Medical Address: [address] [place] [address], [phone] Email: Plan Of Care PT-OP-T Assessment and Plan Start: 02/14/23 11:43 Freq: Status: Active Protocol: Document 05/08/23 14:29 [facility] (Rec: 05/08/23 15:17 [facility] [id number]) Physical Therapy Assessment Goals Three Impairment gait dysfunction Impairment antalgic gait on level surface , step-to pattern on stairs Seed [employer] Manager Production Goal (LTG) Patient will be able to ambulate on level surfaces without limp and on stairs with alternating pattern with min UE use. 03/10: See Gait Training w/ SPC for progress on level surface and stairs 05/08/23: minimal limp, can alternate LE's on 4 stairs consistently, 6 stairs 60% of time. Good goal progress LTG Duration 06/07/22 Two Impairment weakness left knee Impairment 3-/5 Short Term Goal (STG) Patient to be instructed in individualized, progressive HEP for purposes of left knee strengthening, and functionally be able to move from sit to stand with min to no UE support 03/10: Pt reports 80-100 STS without UE support/day (4-5 sets x20) 05/08/23: goal met STG Duration goal met Group Home Goal (LTG) Patient to demonstrate at least 4+/5 muscle strength left knee to allow her to return to PLF 05/08/23: 4/5 both flex and ext left knee. Good goal progress LTG Duration 04/17/23 One Impairment lacking full knee AROM Short Term Goal (STG) Improve left knee AROM to 5- 110 degrees 03/01/23: 8-94 deg PROM 03/10: Pt completes full revolutions bwd/fwd on upright bicycle seat level 5. 05/08/23: 5-95 deg AROM 3-98 PROM STG Duration 05/25/23 Group Home Goal (LTG) Improve left knee AROM to 0- 120 degrees to allow her to return to all prior activities LTG Duration 06/07/23 Progress Towards Goals Progress Towards Goals Slow Progress - Other Assessment Summary Assessment L Knee AROM: 5-95, PROM 2-98. Patient has made progress toward goals but still lacking full functional left knee ROM . Patient reports her manipulation was not scheduled , and now she is thinking she doesn't want to have it done again. Prefers to continue with PT because seeing progress, though slow. Would benefit from PT for progression of ther ex and manual techniques to help her achieve full AROM left knee to allow her to return to prior level of function Physical Therapy Plan Frequency and Duration Frequency of Treatment 2x/Week Duration of treatment (weeks) 8 Plan of Care Start Date 04/17/23 Plan of Care End Date 06/17/22 Therapeutic Interventions Therapeutic Interventions Gait Training,Home Exercise Program,Manual Therapy,Patient /Caregiver Education,Self-Care /Home Management,Soft Tissue Mobilization,Taping, Therapeutic Activities, Therapeutic Exercises Modalities Cold Pack/Ice Massage,Electric Stimulation,Hot Packs Next Visit Focus/Plan Next Note Type Treatment Note Next Visit Plan Continue TKA rehab:scar mob, patellar mobs, STM quads and hamstrings, gravity assisted knee flex at wall with weight, prone knee ext with weight, functional sit>< stand with PT guidance for tibial movement with dec height surface as sonny . Plan of Care Dates Plan of Care Start Date 04/17/23 Plan of Care End Date 06/17/22 Electronically Signed by: Jessica Blackmon, PT 05/09/23 1003 If you are in agreement with this Plan of Care, please return a signed and dated copy. I have reviewed this Plan of Care and certify that the skilled therapy services above are required to meet the patient?s needs. Physician Signature Date Printed Name and Credentials Clinical Instructor Signature Printed Name and Credentials
--- NOTE | 2023-05-08 15:53 | PT.OTRE ---
Current Diagnoses Unilateral primary osteoarthritis, left knee (05/08/23) Past Medical History (Last Reviewed 05/20/22 @ 09:23 by Juliette Jiménez PA-C) Allergies Anesthesia complication Anxiety Cervical spinal stenosis Cleft palate COVID-19 virus infection (03/30/22) Depression Fibromyalgia GERD (gastroesophageal reflux disease) Hearing impaired HTN (hypertension) Hx of multiple concussions Hypothyroid JOHNNIE on CPAP Osteoarthritis Spinal stenosis Vocal cord dysfunction Surgical History (Last Reviewed 05/20/22 @ 09:23 by Juliette Jiménez PA-C) History of biopsy of temporal artery History of section History of hysterectomy History of right oophorectomy Hx of arthroscopy of right knee Hx of hand surgery Hx of knee surgery Hx of thyroidectomy (11/14/14) Hx of tonsillectomy S/P appendectomy Visit Care Team Role Provider Type Tiera Guerrero MD Family Provider Non-Staff Primary Care Provider Specialty: Pediatrics Address: [address] [place] [address], [phone] Email: Aimee Shea PA-C Attending Provider Non-Staff Referring Provider Specialty: Medical Address: [address] [place] [address], [phone] Email: Physical Therapy Re-Evaluation PT-OP-A Visit Information Start: 02/14/23 11:43 Freq: Status: Active Protocol: Document 05/08/23 14:29 [facility] (Rec: 05/08/23 15:17 [facility] [id number]) Out-Patient Physical Therapy Visit Information Visit Information Visit Type Treatment Note Visit Start Time 14:30 Visit Stop Time 15:24 Total Visit Minutes 54 Visit Number 20 PT-OP-B Current Condition Start: 02/14/23 11:43 Freq: Status: Active Protocol: Document 03/27/23 11:17 [facility] (Rec: 03/27/23 12:05 [facility] [id number]) Current Condition History of Current Condition Onset Date November 2022 Current Complaints limited function left knee History of Current Condition right TKA May 2022 (prior 3 surgeries right knee). Dr Zenaida Garcia, recovery hasn't gone well, right foot numb, still painful, has had manipulation, still limited bend of knee. Left TKA done by Dr. Dewey November 2022, had PT at another clinic because she said he worked her to the point of feeling she was going to throw up; stopped PT in December. Sees Dr. Dewey today, thinks he may recommend manipulation for left. Uses recumbant exercise bike Prior Treatments and Tests TKA in November 2022 (pt can't remember date.) Future Testing and Treatments Planned sees Dr. Dewey today PT-OP-C Subjective Start: 02/14/23 11:43 Freq: Status: Active Protocol: Document 05/08/23 14:29 [facility] (Rec: 05/08/23 15:17 [facility] [id number]) OP-PT Subjective Patient Comments Patient Comments Went to [place], wore compression on plane, couldn't tolerate wearing much in [place]. Pool was too cold, sat on the edge and kicked, went in hot tub once. Feels walking better, still stifness but not sure she wants to do manipulation PT-OP-F Manual Assessment Start: 02/14/23 11:43 Freq: Status: Active Protocol: Document 02/15/23 09:34 [facility] (Rec: 02/15/23 14:59 [facility] [id number]) Manual Assessments Soft Tissue Assessment Soft Tissue Mobility Assessment decreased scar tissue mobility left knee Joint Mobility Assessment Joint Mobility Assessment dec patellar mobility left knee sup and inf PT-OP-G Mobility & Gait Start: 02/14/23 11:43 Freq: Status: Active Protocol: Document 02/15/23 09:34 [facility] (Rec: 02/15/23 14:59 [facility] [id number]) OP Mobility Evaluation Transfers Sit to Stand requires UE use OP Gait Assessment Gait Gait Assistance Required: Independent Distance (Feet) 50 Assistive Devices Assistive Device None Orthotic/Prosthetic Devices or Brace: No Gait Deviations General Gait Pattern Antalgic,Decreased Stride Length,Decreased Feet Clearance Factors Limiting Gait Function Factors Limiting Gait Function Decreased Strength,Limited Range of Motion,Pain Stair Climbing Evaluation Evaluation Level of Assist On Stairs Independent Devices Stair Climbing Assistive Devices Left Railing,Right Railing Technique/Endurance Stair Climbing Technique Step to Step PT-OP-J Posture/Palpation/Skin Start: 02/14/23 11:43 Freq: Status: Active Protocol: Document 02/15/23 09:34 [facility] (Rec: 02/15/23 10:31 [facility] [id number]) Posture Evaluation Position Standing Hip Posture (L) Externally Rotated,(R) Externally Rotated Knee Posture (L) Excess Flexion Ankle/Foot Posture (L) Forefoot Eversion,(R) Forefoot Eversion Palpation Assessment Location surgical scar Palpation Findings Soft Tissue Tightness Palpation Details poor scar mobility left and right Skin Assessment Edema Assessment left knee Edema Degree 2+ Incisional Assessment Incision Appearance/Comments well-healed, no signs or symptoms of infection PT-OP-K Range of Motion Start: 02/14/23 11:43 Freq: Status: Active Protocol: Document 03/17/23 13:47 [facility] (Rec: 03/17/23 15:02 [facility] [id number]) Knee Goniometric Range of Motion Knee Measured in Degrees Left Flexion Active (degrees) 90 Extension Active (degrees) 6 Extension Passive (degrees) 6 PT-OP-M Strength Start: 02/14/23 11:43 Freq: Status: Active Protocol: Document 02/15/23 09:34 [facility] (Rec: 02/15/23 14:59 [facility] [id number]) Knee Strength Knee Manual Muscle Testing Left Flexion (S2) 3- Fair- Extension (L3) 3- Fair- Right Flexion (S2) 4 Good Extension (L3) 4 Good PT-OP-Q Treatments Start: 02/14/23 11:43 Freq: Status: Active Protocol: Document 05/08/23 14:29 [facility] (Rec: 05/08/23 15:17 [facility] [id number]) Cardio Equipment Recumbent Elliptical (Biodex) Duration (Minutes) 12 Resistance 1 Seat Position 6-3 Gym Equipment Cable Column (Body Solid) knee extension Details lenny, f/b stretch into flexion Resistance 10 Reps/Time 10x3 hamstring curl' Details lenny, f/b stretch into ext on machine Resistance 50 Reps/Time 10 x 2 Therapeutic Exercises Supine Exercises gravity assisted knee flex Equipment Used 2# weight Reps/Minutes 3x30, right ankle over left Comments wall Sitting Exercises wheelchair walking Sitting Exercise Name stool scooting Equipment Used stool scoot Reps/Minutes 2 min Comments legs only Sit to Stand Sitting Exercise Name sit>< stand Equipment Used decreasing height box, holding onto stair rail Reps/Minutes 2x Comments discontinued due to patient reporting ribcage pain from last session Standing Exercises calf stretch Equipment Used ELHAM Reps/Minutes 2x30 seconds Manual Therapy Treatment Soft Tissue Mobilization L knee Body Location L quads Mobilization Type Myofascial Release,Rolling, Strumming Intensity/Depth Moderate Body Position Supine scar Body Location L knee Mobilization Type Myofascial Release,Rolling Intensity/Depth Moderate Body Position Supine Comments palpating areas of restriction w/ ankle pump assist Joint Mobilizations L patella mob Direction sup,inf, med,lat Grade II Body Position Supine Reps/Duration 5 min PT-OP-R Modalities Start: 02/14/23 11:43 Freq: Status: Active Protocol: Document 04/17/23 11:17 [facility] (Rec: 04/17/23 12:07 [facility] [id number]) Hot Pack/Cold Pack Treatment Cold Pack Location left knee Treatment Duration (minutes) 10 Patient Tolerance Good Comments LE elevated on bolster PT-OP-T Assessment and Plan Start: 02/14/23 11:43 Freq: Status: Active Protocol: Document 05/08/23 14:29 [facility] (Rec: 05/08/23 15:17 [facility] [id number]) Physical Therapy Assessment Goals Three Impairment gait dysfunction Impairment antalgic gait on level surface , step-to pattern on stairs Shelter Goal (LTG) Patient will be able to ambulate on level surfaces without limp and on stairs with alternating pattern with min UE use. 03/10: See Gait Training w/ SPC for progress on level surface and stairs 05/08/23: minimal limp, can alternate LE's on 4 stairs consistently, 6 stairs 60% of time. Good goal progress LTG Duration 06/07/22 Two Impairment weakness left knee Impairment 3-/5 Short Term Goal (STG) Patient to be instructed in individualized, progressive HEP for purposes of left knee strengthening, and functionally be able to move from sit to stand with min to no UE support 03/10: Pt reports 80-100 STS without UE support/day (4-5 sets x20) 05/08/23: goal met STG Duration goal met Shelter Goal (LTG) Patient to demonstrate at least 4+/5 muscle strength left knee to allow her to return to PLF 05/08/23: 4/5 both flex and ext left knee. Good goal progress LTG Duration 04/17/23 One Impairment lacking full knee AROM Short Term Goal (STG) Improve left knee AROM to 5- 110 degrees 03/01/23: 8-94 deg PROM 03/10: Pt completes full revolutions bwd/fwd on upright bicycle seat level 5. 05/08/23: 5-95 deg AROM 3-98 PROM STG Duration 05/25/23 Shelter Goal (LTG) Improve left knee AROM to 0- 120 degrees to allow her to return to all prior activities LTG Duration 06/07/23 Progress Towards Goals Progress Towards Goals Slow Progress - Other Assessment Summary Assessment L Knee AROM: 5-95, PROM 2-98. Patient has made progress toward goals but still lacking full functional left knee ROM . Patient reports her manipulation was not scheduled , and now she is thinking she doesn't want to have it done again. Prefers to continue with PT because seeing progress, though slow. Would benefit from PT for progression of ther ex and manual techniques to help her achieve full AROM left knee to allow her to return to prior level of function Physical Therapy Plan Frequency and Duration Frequency of Treatment 2x/Week Duration of treatment (weeks) 4 Plan of Care Start Date 05/08/23 Plan of Care End Date 06/07/23 Therapeutic Interventions Therapeutic Interventions Gait Training,Home Exercise Program,Manual Therapy,Patient /Caregiver Education,Self-Care /Home Management,Soft Tissue Mobilization,Taping, Therapeutic Activities, Therapeutic Exercises Modalities Cold Pack/Ice Massage,Electric Stimulation,Hot Packs Next Visit Focus/Plan Next Note Type Treatment Note Next Visit Plan Continue TKA rehab:scar mob, patellar mobs, STM quads and hamstrings, gravity assisted knee flex at wall with weight, prone knee ext with weight, functional sit>< stand with PT guidance for tibial movement with dec height surface as sonny .
--- NOTE | 2023-05-08 15:53 | PT.OPPOC ---
Physical, Occupational & Speech Therapy At [facility] Current Diagnoses Unilateral primary osteoarthritis, left knee (05/08/23) Visit Care Team Role Provider Type Tiera Guerrero MD Family Provider Non-Staff Primary Care Provider Specialty: Pediatrics Address: [address] [place] [address], [id number] Email: Aimee Shea PA-C Attending Provider Non-Staff Referring Provider Specialty: Medical Address: [address] [place] [address], [phone] Email: Plan Of Care PT-OP-T Assessment and Plan Start: 02/14/23 11:43 Freq: Status: Active Protocol: Document 05/08/23 14:29 SAK (Rec: 05/08/23 15:17 SAK [id number]) Physical Therapy Assessment Goals Three Impairment gait dysfunction Impairment antalgic gait on level surface , step-to pattern on stairs [employer] Goal (LTG) Patient will be able to ambulate on level surfaces without limp and on stairs with alternating pattern with min UE use. 03/10: See Gait Training w/ SPC for progress on level surface and stairs 05/08/23: minimal limp, can alternate LE's on 4 stairs consistently, 6 stairs 60% of time. Good goal progress LTG Duration 06/07/22 Two Impairment weakness left knee Impairment 3-/5 Short Term Goal (STG) Patient to be instructed in individualized, progressive HEP for purposes of left knee strengthening, and functionally be able to move from sit to stand with min to no UE support 03/10: Pt reports 80-100 STS without UE support/day (4-5 sets x20) 05/08/23: goal met STG Duration goal met Jail Goal (LTG) Patient to demonstrate at least 4+/5 muscle strength left knee to allow her to return to PLF 05/08/23: 4/5 both flex and ext left knee. Good goal progress LTG Duration 04/17/23 One Impairment lacking full knee AROM Short Term Goal (STG) Improve left knee AROM to 5- 110 degrees 03/01/23: 8-94 deg PROM 03/10: Pt completes full revolutions bwd/fwd on upright bicycle seat level 5. 05/08/23: 5-95 deg AROM 3-98 PROM STG Duration 05/25/23 Jail Goal (LTG) Improve left knee AROM to 0- 120 degrees to allow her to return to all prior activities LTG Duration 06/07/23 Progress Towards Goals Progress Towards Goals Slow Progress - Other Assessment Summary Assessment L Knee AROM: 5-95, PROM 2-98. Patient has made progress toward goals but still lacking full functional left knee ROM . Patient reports her manipulation was not scheduled , and now she is thinking she doesn't want to have it done again. Prefers to continue with PT because seeing progress, though slow. Would benefit from PT for progression of ther ex and manual techniques to help her achieve full AROM left knee to allow her to return to prior level of function Physical Therapy Plan Frequency and Duration Frequency of Treatment 2x/Week Duration of treatment (weeks) 4 Plan of Care Start Date 05/08/23 Plan of Care End Date 06/07/23 Therapeutic Interventions Therapeutic Interventions Gait Training,Home Exercise Program,Manual Therapy,Patient /Caregiver Education,Self-Care /Home Management,Soft Tissue Mobilization,Taping, Therapeutic Activities, Therapeutic Exercises Modalities Cold Pack/Ice Massage,Electric Stimulation,Hot Packs Next Visit Focus/Plan Next Note Type Treatment Note Next Visit Plan Continue TKA rehab:scar mob, patellar mobs, STM quads and hamstrings, gravity assisted knee flex at wall with weight, prone knee ext with weight, functional sit>< stand with PT guidance for tibial movement with dec height surface as sonny . Plan of Care Dates Plan of Care Start Date 05/08/23 Plan of Care End Date 06/07/23 Electronically Signed by: Jessica Blackmon, PT 05/08/23 [id number] If you are in agreement with this Plan of Care, please return a signed and dated copy. I have reviewed this Plan of Care and certify that the skilled therapy services above are required to meet the patient?s needs. Physician Signature Date Printed Name and Credentials Clinical Instructor Signature Printed Name and Credentials
--- NOTE | 2023-05-08 16:00 | PT.OTRE ---
Current Diagnoses Unilateral primary osteoarthritis, left knee (05/08/23) Past Medical History (Last Reviewed 05/20/22 @ 09:23 by Juliette Jiménez PA-C) Allergies Anesthesia complication Anxiety Cervical spinal stenosis Cleft palate COVID-19 virus infection (03/30/22) Depression Fibromyalgia GERD (gastroesophageal reflux disease) Hearing impaired HTN (hypertension) Hx of multiple concussions Hypothyroid JOHNNIE on CPAP Osteoarthritis Spinal stenosis Vocal cord dysfunction Surgical History (Last Reviewed 05/20/22 @ 09:23 by Juliette Jiménez PA-C) History of biopsy of temporal artery History of section History of hysterectomy History of right oophorectomy Hx of arthroscopy of right knee Hx of hand surgery Hx of knee surgery Hx of thyroidectomy (11/14/14) Hx of tonsillectomy S/P appendectomy Visit Care Team Role Provider Type Tiera Guerrero MD Family Provider Non-Staff Primary Care Provider Specialty: Pediatrics Address: [address] [place] [address], [phone] Email: Aimee Shea PA-C Attending Provider Non-Staff Referring Provider Specialty: Medical Address: [address] [place] [address], [phone] Email: Physical Therapy Re-Evaluation PT-OP-A Visit Information Start: 02/14/23 11:43 Freq: Status: Active Protocol: Document 05/08/23 14:29 SAK (Rec: 05/08/23 15:17 [facility] [id number]) Out-Patient Physical Therapy Visit Information Visit Information Visit Type Treatment Note Visit Start Time 14:30 Visit Stop Time 15:24 Total Visit Minutes 54 Visit Number 20 PT-OP-B Current Condition Start: 02/14/23 11:43 Freq: Status: Active Protocol: Document 03/27/23 11:17 SAK (Rec: 03/27/23 12:05 [facility] [id number]) Current Condition History of Current Condition Onset Date November 2022 Current Complaints limited function left knee History of Current Condition right TKA May 2022 (prior 3 surgeries right knee). Dr Zenaida Garcia, recovery hasn't gone well, right foot numb, still painful, has had manipulation, still limited bend of knee. Left TKA done by Dr. Dewey November 2022, had PT at another clinic because she said he worked her to the point of feeling she was going to throw up; stopped PT in December. Sees Dr. Dewey today, thinks he may recommend manipulation for left. Uses recumbant exercise bike Prior Treatments and Tests TKA in November 2022 (pt can't remember date.) Future Testing and Treatments Planned sees Dr. Dewey today PT-OP-C Subjective Start: 02/14/23 11:43 Freq: Status: Active Protocol: Document 05/08/23 14:29 SAK (Rec: 05/08/23 15:17 [facility] [id number]) OP-PT Subjective Patient Comments Patient Comments Went to [place], wore compression on plane, couldn't tolerate wearing much in [place]. Pool was too cold, sat on the edge and kicked, went in hot tub once. Feels walking better, still stifness but not sure she wants to do manipulation PT-OP-F Manual Assessment Start: 02/14/23 11:43 Freq: Status: Active Protocol: Document 02/15/23 09:34 [facility] (Rec: 02/15/23 14:59 [facility] [id number]) Manual Assessments Soft Tissue Assessment Soft Tissue Mobility Assessment decreased scar tissue mobility left knee Joint Mobility Assessment Joint Mobility Assessment dec patellar mobility left knee sup and inf PT-OP-G Mobility & Gait Start: 02/14/23 11:43 Freq: Status: Active Protocol: Document 02/15/23 09:34 SAK (Rec: 02/15/23 14:59 [facility] [id number]) OP Mobility Evaluation Transfers Sit to Stand requires UE use OP Gait Assessment Gait Gait Assistance Required: Independent Distance (Feet) 50 Assistive Devices Assistive Device None Orthotic/Prosthetic Devices or Brace: No Gait Deviations General Gait Pattern Antalgic,Decreased Stride Length,Decreased Feet Clearance Factors Limiting Gait Function Factors Limiting Gait Function Decreased Strength,Limited Range of Motion,Pain Stair Climbing Evaluation Evaluation Level of Assist On Stairs Independent Devices Stair Climbing Assistive Devices Left Railing,Right Railing Technique/Endurance Stair Climbing Technique Step to Step PT-OP-J Posture/Palpation/Skin Start: 02/14/23 11:43 Freq: Status: Active Protocol: Document 02/15/23 09:34 SAK (Rec: 02/15/23 10:31 [facility] [id number]) Posture Evaluation Position Standing Hip Posture (L) Externally Rotated,(R) Externally Rotated Knee Posture (L) Excess Flexion Ankle/Foot Posture (L) Forefoot Eversion,(R) Forefoot Eversion Palpation Assessment Location surgical scar Palpation Findings Soft Tissue Tightness Palpation Details poor scar mobility left and right Skin Assessment Edema Assessment left knee Edema Degree 2+ Incisional Assessment Incision Appearance/Comments well-healed, no signs or symptoms of infection PT-OP-K Range of Motion Start: 02/14/23 11:43 Freq: Status: Active Protocol: Document 03/17/23 13:47 NBM (Rec: 03/17/23 15:02 NBM [id number]) Knee Goniometric Range of Motion Knee Measured in Degrees Left Flexion Active (degrees) 90 Extension Active (degrees) 6 Extension Passive (degrees) 6 PT-OP-M Strength Start: 02/14/23 11:43 Freq: Status: Active Protocol: Document 02/15/23 09:34 [facility] (Rec: 02/15/23 14:59 [facility] [id number]) Knee Strength Knee Manual Muscle Testing Left Flexion (S2) 3- Fair- Extension (L3) 3- Fair- Right Flexion (S2) 4 Good Extension (L3) 4 Good PT-OP-Q Treatments Start: 02/14/23 11:43 Freq: Status: Active Protocol: Document 05/08/23 14:29 [facility] (Rec: 05/08/23 15:17 [facility] [id number]) Cardio Equipment Recumbent Elliptical (Biodex) Duration (Minutes) 12 Resistance 1 Seat Position 6-3 Gym Equipment Cable Column (Body Solid) knee extension Details lenny, f/b stretch into flexion Resistance 10 Reps/Time 10x3 hamstring curl' Details lenny, f/b stretch into ext on machine Resistance 50 Reps/Time 10 x 2 Therapeutic Exercises Supine Exercises gravity assisted knee flex Equipment Used 2# weight Reps/Minutes 3x30, right ankle over left Comments wall Sitting Exercises wheelchair walking Sitting Exercise Name stool scooting Equipment Used stool scoot Reps/Minutes 2 min Comments legs only Sit to Stand Sitting Exercise Name sit>< stand Equipment Used decreasing height box, holding onto stair rail Reps/Minutes 2x Comments discontinued due to patient reporting ribcage pain from last session Standing Exercises calf stretch Equipment Used ELHAM Reps/Minutes 2x30 seconds Manual Therapy Treatment Soft Tissue Mobilization L knee Body Location L quads Mobilization Type Myofascial Release,Rolling, Strumming Intensity/Depth Moderate Body Position Supine scar Body Location L knee Mobilization Type Myofascial Release,Rolling Intensity/Depth Moderate Body Position Supine Comments palpating areas of restriction w/ ankle pump assist Joint Mobilizations L patella mob Direction sup,inf, med,lat Grade II Body Position Supine Reps/Duration 5 min PT-OP-R Modalities Start: 02/14/23 11:43 Freq: Status: Active Protocol: Document 04/17/23 11:17 [facility] (Rec: 04/17/23 12:07 [facility] [id number]) Hot Pack/Cold Pack Treatment Cold Pack Location left knee Treatment Duration (minutes) 10 Patient Tolerance Good Comments LE elevated on bolster PT-OP-T Assessment and Plan Start: 02/14/23 11:43 Freq: Status: Active Protocol: Document 05/08/23 14:29 [facility] (Rec: 05/08/23 15:17 [facility] [id number]) Physical Therapy Assessment Goals Three Impairment gait dysfunction Impairment antalgic gait on level surface , step-to pattern on stairs Halfway Goal (LTG) Patient will be able to ambulate on level surfaces without limp and on stairs with alternating pattern with min UE use. 03/10: See Gait Training w/ SPC for progress on level surface and stairs 05/08/23: minimal limp, can alternate LE's on 4 stairs consistently, 6 stairs 60% of time. Good goal progress LTG Duration 06/07/22 Two Impairment weakness left knee Impairment 3-/5 Short Term Goal (STG) Patient to be instructed in individualized, progressive HEP for purposes of left knee strengthening, and functionally be able to move from sit to stand with min to no UE support 03/10: Pt reports 80-100 STS without UE support/day (4-5 sets x20) 05/08/23: goal met STG Duration goal met Halfway Goal (LTG) Patient to demonstrate at least 4+/5 muscle strength left knee to allow her to return to PLF 05/08/23: 4/5 both flex and ext left knee. Good goal progress LTG Duration 04/17/23 One Impairment lacking full knee AROM Short Term Goal (STG) Improve left knee AROM to 5- 110 degrees 03/01/23: 8-94 deg PROM 03/10: Pt completes full revolutions bwd/fwd on upright bicycle seat level 5. 05/08/23: 5-95 deg AROM 3-98 PROM STG Duration 05/25/23 Halfway Goal (LTG) Improve left knee AROM to 0- 120 degrees to allow her to return to all prior activities LTG Duration 06/07/23 Progress Towards Goals Progress Towards Goals Slow Progress - Other Assessment Summary Assessment L Knee AROM: 5-95, PROM 2-98. Patient has made progress toward goals but still lacking full functional left knee ROM . Patient reports her manipulation was not scheduled , and now she is thinking she doesn't want to have it done again. Prefers to continue with PT because seeing progress, though slow. Would benefit from PT for progression of ther ex and manual techniques to help her achieve full AROM left knee to allow her to return to prior level of function Physical Therapy Plan Frequency and Duration Frequency of Treatment 2x/Week Duration of treatment (weeks) 8 Plan of Care Start Date 04/17/23 Plan of Care End Date 06/17/22 Therapeutic Interventions Therapeutic Interventions Gait Training,Home Exercise Program,Manual Therapy,Patient /Caregiver Education,Self-Care /Home Management,Soft Tissue Mobilization,Taping, Therapeutic Activities, Therapeutic Exercises Modalities Cold Pack/Ice Massage,Electric Stimulation,Hot Packs Next Visit Focus/Plan Next Note Type Treatment Note Next Visit Plan Continue TKA rehab:scar mob, patellar mobs, STM quads and hamstrings, gravity assisted knee flex at wall with weight, prone knee ext with weight, functional sit>< stand with PT guidance for tibial movement with dec height surface as sonny .
--- NOTE | 2023-07-03 09:44 | PT.OPDS ---
Current Diagnoses Unilateral primary osteoarthritis, left knee (05/08/23) Visit Care Team Role Provider Type Tiera Guerrero MD Family Provider Non-Staff Primary Care Provider Specialty: Pediatrics Address: [facility] [place], [address] Email: Aimee Shea PA-C Attending Provider Non-Staff Referring Provider Specialty: Medical Address: [address] [place] [address], [place], [phone] Email: Visit Number Visit Number 20 Discharge Summary PT-OP-B Current Condition Start: 02/14/23 11:43 Freq: Status: Active Protocol: Document 03/27/23 11:17 SAK (Rec: 03/27/23 12:05 SAK [id number]) Current Condition History of Current Condition Onset Date November 2022 Current Complaints limited function left knee History of Current Condition right TKA May 2022 (prior 3 surgeries right knee). Dr Zenaida Garcia, recovery hasn't gone well, right foot numb, still painful, has had manipulation, still limited bend of knee. Left TKA done by Dr. Dewey November 2022, had PT at another clinic because she said he worked her to the point of feeling she was going to throw up; stopped PT in December. Sees Dr. Dewey today, thinks he may recommend manipulation for left. Uses recumbant exercise bike Prior Treatments and Tests TKA in November 2022 (pt can't remember date.) Future Testing and Treatments Planned sees Dr. Dewey today PT-OP-C Subjective Start: 02/14/23 11:43 Freq: Status: Active Protocol: Document 05/08/23 14:29 SAK (Rec: 05/08/23 15:17 SAK [id number]) OP-PT Subjective Patient Comments Patient Comments Went to [place], wore compression on plane, couldn't tolerate wearing much in [place]. Pool was too cold, sat on the edge and kicked, went in hot tub once. Feels walking better, still stifness but not sure she wants to do manipulation PT-OP-F Manual Assessment Start: 02/14/23 11:43 Freq: Status: Active Protocol: Document 02/15/23 09:34 [facility] (Rec: 02/15/23 14:59 [facility] [id number]) Manual Assessments Soft Tissue Assessment Soft Tissue Mobility Assessment decreased scar tissue mobility left knee Joint Mobility Assessment Joint Mobility Assessment dec patellar mobility left knee sup and inf PT-OP-G Mobility & Gait Start: 02/14/23 11:43 Freq: Status: Active Protocol: Document 02/15/23 09:34 [facility] (Rec: 02/15/23 14:59 [facility] [id number]) OP Mobility Evaluation Transfers Sit to Stand requires UE use OP Gait Assessment Gait Gait Assistance Required: Independent Distance (Feet) 50 Assistive Devices Assistive Device None Orthotic/Prosthetic Devices or Brace: No Gait Deviations General Gait Pattern Antalgic,Decreased Stride Length,Decreased Feet Clearance Factors Limiting Gait Function Factors Limiting Gait Function Decreased Strength,Limited Range of Motion,Pain Stair Climbing Evaluation Evaluation Level of Assist On Stairs Independent Devices Stair Climbing Assistive Devices Left Railing,Right Railing Technique/Endurance Stair Climbing Technique Step to Step PT-OP-J Posture/Palpation/Skin Start: 02/14/23 11:43 Freq: Status: Active Protocol: Document 02/15/23 09:34 [facility] (Rec: 02/15/23 10:31 [facility] [id number]) Posture Evaluation Position Standing Hip Posture (L) Externally Rotated,(R) Externally Rotated Knee Posture (L) Excess Flexion Ankle/Foot Posture (L) Forefoot Eversion,(R) Forefoot Eversion Palpation Assessment Location surgical scar Palpation Findings Soft Tissue Tightness Palpation Details poor scar mobility left and right Skin Assessment Edema Assessment left knee Edema Degree 2+ Incisional Assessment Incision Appearance/Comments well-healed, no signs or symptoms of infection PT-OP-K Range of Motion Start: 02/14/23 11:43 Freq: Status: Active Protocol: Document 03/17/23 13:47 NBM (Rec: 03/17/23 15:02 NBM [id number]) Knee Goniometric Range of Motion Knee Left Flexion Active (degrees) 90 Extension Active (degrees) 6 Extension Passive (degrees) 6 PT-OP-M Strength Start: 02/14/23 11:43 Freq: Status: Active Protocol: Document 02/15/23 09:34 [facility] (Rec: 02/15/23 14:59 [facility] [id number]) Knee Strength Knee Manual Muscle Testing Left Flexion (S2) 3- Fair- Extension (L3) 3- Fair- Right Flexion (S2) 4 Good Extension (L3) 4 Good PT-OP-T Assessment and Plan Start: 02/14/23 11:43 Freq: Status: Active Protocol: Document 07/03/23 09:43 [facility] (Rec: 07/03/23 09:44 [facility] [id number]) Physical Therapy Plan Discharge Physical Therapy Discharge Reasons No Longer Attending PT
== END 2023-07-06 10:06 | disposition home or self-care (01) ==
LOC: PHYS 14:30
PROVIDERS: Family Provider Internal Medicine; PCP Internal Medicine; Referring Provider Physician Assistant; Visit Provider Physician Assistant
DX: M17.12 Unilateral primary osteoarthritis, left knee (principal)
CPT/HCPCS: 97014; 97110; 97116; 97140; 97162; 97535; G0283